=== PATIENT | male | born 1960 | race Caucasian/White ===

== ENCOUNTER 2020-01-14 10:57 | Outpatient (CLI) | payer OTHER, SELFPAY ==
--- NOTE | 2020-01-14 11:03 | XR_ITS ---
WS: [id number] Chest with left rib detail, 01/14/2020 Clinical Data: FALL Comparison: PA and lateral chest, 12/26/2017. Findings: The lungs show no nodules, masses, or effusions. The heart is normal. No pneumonia or pneumothorax is seen. There is volume loss in the left lung with elevation of the left diaphragm unchanged. The ribs are intact. No rib fractures seen. No subcutaneous emphysema is present. XR/XR ribs LT mn 3V w CXR1V [id number] Impression: 1. Chronic volume loss changes of the left lung. 2. Negative for left rib fracture.
== END 2020-01-14 10:58 | disposition home or self-care (01) ==
LOC: RAD 11:01
PROVIDERS: PCP Family Medicine; Visit Provider Nurse Practitioner Family
DX: R07.81 Pleurodynia (principal); W19.XXXA Unspecified fall, initial encounter
CPT/HCPCS: 71101

== ENCOUNTER 2020-02-21 05:21 | Observation (INO) | payer OTHER, SELFPAY ==
[2020-02-21] VITALS (20 sets, daily range): BP systolic 116–152; BP diastolic 80–116; PULSE 82–120; RESP 16–28; TEMP 36.6–37.2; O2SAT 95–97; BMI 23.1
--- NOTE | 2020-02-21 05:25 | ECG_ITS ---
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 Measurements Intervals [place] Rate: 83 P: PA: -1 QRS: -65 QRSD: 110 T: 22 QT: 363 QTc: 429 Interpretive Statements ATRIAL FIBRILLATION INCOMPLETE RIGHT BUNDLE BRANCH BLOCK [90+ ms QRS DURATION, TERMINAL R IN V1/V2, 40+ ms S IN I/aVL/V4/V5/V6] LEFT ANTERIOR FASCICULAR BLOCK [QRS AXIS <= -45, QR IN I, RS IN II] MINIMAL VOLTAGE CRITERIA FOR LVH, CONSIDER NORMAL VARIANT [MEETS CRITERIA IN ONE OF: R(aVL), S(V1), R(V5), R(V5/V6)+S(V1)] Compared to ECG 10/13/2014 00:52:05 Incomplete right bundle-branch block now present Sinus bradycardia no longer present Electronically Signed On 02-21-2020 21:13:30 CDT by Roby Delgado M.D. [email or web address]/store/[id number]
--- NOTE | 2020-02-21 05:25 | XRR_ITS ---
PROCEDURE INFORMATION: Exam: XR Chest, 1 View Exam date and time: 02/21/2020 5:47 AM Age: 60 years old Clinical indication: Cough and shortness of breath; Additional info: Cp/chest heavy, SOB, cough x a few days TECHNIQUE: Imaging protocol: XR of the chest Views: 1 view. COMPARISON: CR XR ribs LT mn 3V w CXR1V [id number] 01/14/2020 11:22 AM FINDINGS: Lungs: Pleural thickening left hemithorax laterally extending inferiorly. Mild adjacent elevation of the left hemidiaphragm. Linear parenchymal density about the above likely parenchymal band/scarring. Correlate. Subtle airspace disease right lung base. Pleural space: Unremarkable. No pleural effusion. No pneumothorax. Heart/Mediastinum: Unremarkable. No cardiomegaly. Bones/joints: Unremarkable. XR/XR chest 1V portable [id number] IMPRESSION: 1. Pleural thickening left hemithorax laterally extending inferiorly. Mild adjacent elevation of the left hemidiaphragm. Linear parenchymal density about the above likely parenchymal band/scarring. Correlate. 2. Subtle airspace disease right lung base.
--- NOTE | 2020-02-21 05:51 | PC.NURSE ---
patient placed under COVID precautions per Dr request.
--- NOTE | 2020-02-21 05:54 | ED_ITS ---
HPI - SOB/Dyspnea General: Chief Complaint: Shortness of Breath/Dyspnea Stated Complaint: sob; heavy feeling in chest Time Seen by Provider: 02/21/20 05:50 History of Present Illness: HPI Narrative: Patient complains of shortness of breath for the past several days. He has a nonproductive cough. He denies any fever. Patient has no history of COPD or emphysema. He has never smoked. Patient states that he gets pneumonia frequently. MD elicited complaint: shortness of breath and cough Pertinent past history: pneumonia Onset (ago): day(s) Timing: progressively worsening Severity: severe Exacerbating factors: exertion Relieving factors: nothing Known history of: recurrent pneumonia Associated symptoms: Reports chest congestion, cough and myalgias Treatment prior to arrival: none Review of Systems General: Reports: 10 or more systems reviewed and unremarkable except in HPI and below, ROS unobtainable due to endotracheal tube, ROS unobtainable due to medical condition and ROS unobtainable due to mental status Resp: Reports: dyspnea, non-productive cough and chest congestion PFS ED PFSH: Social History Smoking and tobacco status: never smoked Physical Exam Const: COMMON NORMALS: well nourished GENERAL APPEARANCE: cooperative, well kempt, well developed and ill appearing HENMT: COMMON NORMALS: normocephalic and atraumatic HEAD & SCALP: normal to inspection, normocephalic and atraumatic Eye: GENERAL EYE: appearance normal, both eyes and all related structures Neck/C-Spine: COMMON NORMALS: full ROM, no lymphadenopathy and no meningeal signs GENERAL: Yes normal visual inspection CERVICAL SPINE: Yes cervical ROM normal and Yes normal cervical lordosis Chest: COMMONS NORMALS: normal inspection of the chest and normal palpation of entire chest wall Resp: COMMON NORMALS: normal respiratory effort and percussion normal EFFOR T & INSPECTION: Yes able to speak in complete sentences AUSCULTATION: rhonchi PERCUSSION: percussion normal and dullness Cardio: COMMON NORMALS: regular rate, regular rhythm, S1 normal heart sound present and S2 normal heart sound present JUGULAR VENOUS DISTENTION: no JVD PALPATION: normal PMI RATE: regular rate RHYTHM: regular rhythm HEART SOUNDS: S1 normal heart sound present and S2 normal heart sound present GI: COMMON NORMALS: Soft to palpation and No hepatosplenomegaly present INSPECTION: Yes normal to inspection PALPATION: Yes Soft to palpation and Yes No hepatosplenomegaly present PERCUSSION: normal to percussion : COMMON NORMALS: Yes no CVA tenderness BLADDER/KIDNEY EXAM: Yes no CVA tenderness Back/Pelvis: COMMON NORMALS: no CVA tenderness, thoracic and lumbar spine normal to inspection and thoraco-lumbar ROM normal Extremity: COMMON NORMALS: normal to inspection, full ROM and capillary refill normal Neuro: MENINGEAL SIGNS: Yes no meningeal signs Psych: APPEARANCE: Yes well kempt Skin: COMMON NORMALS: no rashes or lesions noted, no wounds and turgor normal GENERAL SKIN EXAM: no rashes or lesions noted, elasticity normal and turgor normal LESIONS: no lesions RASHES: no rashes TRAUMA: no lacerations or abrasions HAIR: normal NAILS: normal Course Vital Signs: Vital signs: Vital Signs Temperature 97.8 F 02/21/20 05:23 Pulse Rate 82 02/21/20 06:30 Respiratory Rate 19 H 02/21/20 06:30 Blood Pressure 136/86 02/21/20 06:30 Pulse Oximetry 96 02/21/20 06:30 MDM - SOB/Dyspnea Lab Data: Labs: Lab Results 02/21/20 02/21/20 02/21/20 Range/Units 05:40 05:40 05:40 WBC 8.7 (4.0-10.0) 10^3/ uL RBC 4.94 (4.1-5.3) 10^6/u L Hgb 14.5 (11.7-16.6) g/dL Hct 44.3 (42.0-52.0) % MCV 89.7 (80-94) fL MCH 29.4 (28.0-34.0) pg MCHC 32.7 (30.0-36.0) g/dL RDW 12.4 (12.1-15.1) % Plt Count 213 (130-400) 10^3/c mm MPV 11.2 H (7.4-10.4) fL Neut % (Auto) 59.3 % Lymph % (Auto) 28.7 % [place] % (Auto) 10.0 % Eos % (Auto) 1.6 % Baso % (Auto) 0.2 % Neut # (Auto) 5.2 (1.8-7.7) 10^3/u L Lymph # (Auto) 2.5 (0.8-4.8) 10^3/u L [place] # (Auto) 0.9 (0.2-0.9) 10^3/u L Eos # (Auto) 0.1 (0.0-0.8) 10^3/u L Baso # (Auto) 0.0 (0.0-0.1) 10^3/u L Nucleated RBC % (a uto) 0 % Nucleated RBCs # 0.0 /100WBC Sodium 142 (136-145) mmol/L Potassium 4.0 (3.5-5.1) mmol/L Chloride 107 (98-107) mmol/L Carbon Dioxide 22 (22-29) mmol/L Anion Gap 17.0 (5-19) BUN 20 (8-23) mg/dL Creatinine 1.0 (0.7-1.2) mg/dL GFR Calculation 76.2 L (90-130) mL/min Glucose 180 H (65-115) mg/dL Calculated Osmolal ity 295 (285-295) mOsm/k g Calcium 9.3 (8.5-10.5) mg/dL Total Bilirubin 0.2 (0.15-1.2) mg/dL AST 20 (0-40) U/L ALT 21 (0-41) U/L Alkaline Phosphata se 82 (40-130) IU/L Troponin T Baselin e 7 (0-15) ng/L NT-Pro-B Natriuret Pep 2414 H (0-125) pg/mL Total Protein 6.0 L (6.6-8.7) g/dL Albumin 4.2 (3.5-5.2) g/dL Globulin 1.8 (1.3-4.6) g/dL Discharge Plan Discharge Patient Disposition: Admitted As Inpatient Clinical Impression: Community acquired pneumonia Qualifiers: Laterality: unspecified laterality Qualified Code(s): J18.9 - Pneumonia, uns pecified organism Condition: Fair Referrals: Taran Cruz Jr, MD [Primary Care Provider] - Coding Level of Care Code ED Lead Pressman for [facility] Fwd Exam Comprehensive
[2020-02-21 06:05] LABS: Basophils % 0.2 %; Eosinophils # 0.1 10^3/uL (0.0-0.8); Eosinophils % 1.6 %; Hematocrit 44.3 % (42.0-52.0); Hemoglobin 14.5 g/dL (11.7-16.6); Lymphocytes # 2.5 10^3/uL (0.8-4.8); Lymphocytes % 28.7 %; Mean Corpuscular HGB Conc 32.7 g/dL (30.0-36.0); Mean Corpuscular Hemoglobin 29.4 pg (28.0-34.0); Mean Corpuscular Volume 89.7 fL (80-94); Mean Platelet Volume 11.2 fL (7.4-10.4); Monocytes # 0.9 10^3/uL (0.2-0.9); Neutrophils # 5.2 10^3/uL (1.8-7.7); Neutrophils % 59.3 %; Nucleated Red Blood Cells % 0 %; Platelet Count 213 10^3/cmm (130-400); Red Blood Count 4.94 10^6/uL (4.1-5.3); Red Cell Distribution Width 12.4 % (12.1-15.1); White Blood Count 8.7 10^3/uL (4.0-10.0)
--- NOTE | 2020-02-21 06:18 | PC.NURSE ---
covid swab done at 0615. labeled and brought to lab. patient tolerated well.
[2020-02-21 06:20] LABS: Troponin(5th) Baseline 7 ng/L (0-15)
[2020-02-21 06:29] LABS: Alanine Aminotransferase 21 U/L (0-41); Albumin Level 4.2 g/dL (3.5-5.2); Alkaline Phosphatase 82 IU/L (40-130); Aspartate Amino Transferase 20 U/L (0-40); Blood Urea Nitrogen 20 mg/dL (8-23); Calcium 9.3 mg/dL (8.5-10.5); Carbon Dioxide 22 mmol/L (22-29); Chloride 107 mmol/L (98-107); Globulin 1.8 g/dL (1.3-4.6); Glomerular Filtration Rate 76.2 mL/min (90-130); Glucose 180 mg/dL (65-115); NT Pro B Type Natriuretic Pept 2414 pg/mL (0-125); Osmolality Calculated 295 mOsm/kg (285-295); Sodium 142 mmol/L (136-145); Total Bilirubin 0.2 mg/dL (0.15-1.2)
--- NOTE | 2020-02-21 07:25 | ECG_ITS ---
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 Measurements Intervals [place] Rate: 65 P: [place]: -1 QRS: 253 QRSD: 161 T: 14 QT: 468 QTc: 489 Interpretive Statements ATRIAL FIBRILLATION WITH ABERRANT CONDUCTION OR VENTRICULAR PREMATURE COMPLEXES INDETERMINATE AXIS RIGHT BUNDLE BRANCH BLOCK [120+ ms QRS DURATION, UPRIGHT V1, 40+ ms S IN I/aVL/V4/V5/V6] Compared to ECG 02/21/2020 11:31:55 Ventricular premature complex(es) now present Aberrant conduction of supraventricular beat(s) now present Indeterminate axis now present Right bundle-branch block now present Incomplete right bundle-branch block no longer present Left anterior fascicular block no longer present Electronically Signed On 02-22-2020 21:53:06 CDT by Roby Delgado M.D. [id number]
[2020-02-21 07:33] LABS: Ferritin 141 ng/mL (30-400); Lactate Dehydrogenase 195 U/L (135-225)
[2020-02-21] MEDS: piperacillin-tazobactam 3.375 GM in sodium chloride 0.9% (plus) 50 ML IV (08:12)
[2020-02-21] MEDS: sodium chloride 0.9% 1,000 ML 100 ML IV (08:14)
[2020-02-21 08:22] LABS: Troponin 5 2HR 7.35 ng/L (0-15); Troponin 5 2HR Delta 0.35 ABS# (0-10)
--- NOTE | 2020-02-21 08:39 | P.HP_ITS ---
Providers/Chief Complaint Admitting Physician: Chika Hartley DO Primary Care Provider: Taran Cruz Jr, MD Chief Complaint: sob; heavy feeling in chest History of Present Illness Mu Willis is a 60 year old male with a past medical history of hypertension, BPH, reported history of chronic lung disease that presented to the emergency department for increasing shortness of breath. He stated that he has been progressively short of breath over the past several months. Stated that this is worsened over the past couple of days. He denies any fevers at home, denies any productive cough. Reports that his only cough is been with deep inspiration, no regular cough. He reports that he has had increasing dyspnea on exertion, occasional chest pain with heaviness in the chest. Reports orthopnea that is been progressive over the past couple of weeks. Patient was seen and evaluated in the emergency department noted to have concern for chest pain and shortness of breath. Patient was initially treated for pneumonia and given Zosyn and also tested for CO VID-19. 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 Patient stated that he was tested 2 weeks ago and was negative at that time. Review of Systems Const: Denies: fever(s) or chills Eyes: Denies: change in vision ENMT: Denies: nasal congestion Card: Reports: chest pain; Denies: palpitations or edema Resp: Reports: dyspnea; Denies: productive cough or hemoptysis GI: Denies: abdominal pain, nausea, vomiting, diarrhea, constipation, hematochezia or melena : Denies: dysuria or hematuria Musc: Denies: extremity pain or muscle cramps Skin/Breast: Denies: rash or new lesions Neuro: Denies: headache(s) or dizziness Psych: Denies: anxiety or depression Endo: Denies: polyuria or hot flashes Sin/Lymph: Denies: easy bruising or easy bleeding Medications/Allergies Home Medications Medication Instructions Recorded Confirmed Last Taken Type apixaban [Eliquis] 5 mg PO BID 02/21/20 02/21/20 02/21/20 History azithromycin [Zithromax Z-Mic] See Rx Instructions .ROUTE 02/21/20 Unknown Rx .COMPLEX #6 tab hydrochlorothiazide 25 mg PO DAILY 02/21/20 02/21/2020 History lisinopril 20 mg PO DAILY 02/21/20 02/21/20 02/21/20 History metoprolol tartrate 50 mg PO BID 02/21/20 02/21/20 02/21/20 History prednisone See Rx Instructions .ROUTE 02/21/20 Unknown Rx .COMPLEX #21 each tamsulosin [Flomax] 0.4 mg PO DAILY 02/21/20 02/21/20 02/21/20 History Allergies Allergy/AdvReac Type Severity Reaction Status Date / Time verapamil Allergy ALGY-Rash Verified 02/21/20 05:31 PFSH Acute PFSH: Medical History (Updated 02/21/20 @ 09:03 by Chika Hartley DO) Atrial fibrillation BPH (benign prostatic hyperplasia) Chronic anticoagulation Chronic lung disease Patient reports failed pulmonary function testing in the past for occupational reasons, no formal PFTs documented Hypertension Surgical History History of cholecystectomy History of tonsillectomy and adenoidectomy Family History (Updated 02/21/20 @ 09:00 by Chika Hartley DO) Father Congestive heart failure Mother Cancer Social History (Updated 02/21/20 @ 09:01 by Chika Hartley DO) Smoking and tobacco status: never smoked Alcohol intake: never Substance/Drug Use: never Current occupation: works at [employer] currently Previous occupational history: 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 Vitals/I&O/Wt Last Vital Signs Temp 98.4 F 02/21/20 08:02 Pulse 91 02/21/20 08:02 Resp 26 H 02/21/20 08:02 BP 152/85 02/21/20 08:02 Pulse Ox 97 02/21/20 08:02 Weight last 48 hrs Weight 83.915 kg Physical Exam Const: COMMON NORMALS: patient oriented x3 and alert GENERAL APPEARANCE: cooperative ORIENTATION/CONSCIOUSNESS: Yes awake, Yes oriented to person, Yes oriented to place and Yes oriented to time HENMT: COMMON NORMALS: normocephalic and atraumatic HEAD & SCALP: normocephalic and atraumatic Eye: COMMON NORMALS: Equal, round and reactive pupils present PUPIL: Yes Equal, round and reactive pupils present Neck/C-Spine: COMMON NORMALS: supple GENERAL: Yes normal visual inspection Resp: AUSCULTATION: no rhonchi and no wheezes OTHER: Mild accessory muscle use, tachypneic, diminished breath sounds bilaterally with faint crackles bilaterally Cardio: COMMON NORMALS: regular rhythm and No murmurs present (Cardio) OTHER: Irregularly irregular, no appreciable murmur GI: COMMON NORMALS: Soft to palpation and non-tender INSPECTION: No abdominal distension AUSCULTATION: Yes normoactive bowel sounds PALPATION: Yes Soft to palpation : COMMON NORMALS: Yes no CVA tenderness BLADDER/KIDNEY EXAM: Yes no CVA tenderness Back/Pelvis: COMMON NORMALS: no CVA tenderness Extremity: COMMON NORMALS: no clubbing, cyanosis or edema and no calf t enderness Neuro: COMMON NORMALS: patient oriented x3, CN's II-XII intact bilaterally, moves all extremities and no focal motor deficits SENSORIUM/ORIENTATION: Yes alert, Yes oriented to person, Yes oriented to place and Yes oriented to time SPEECH: speech normal Psych: COMMON NORMALS: mental status grossly normal and cooperative Skin: COMMON NORMALS: no rashes or lesions noted GENERAL SKIN EXAM: no rashes or lesions noted Data : 02/21/20 05:40 02/21/20 05:40 CXR: I personally reviewed and interpreted this imaging study as follows: Radiologist's impression: IMPRESSION: 1. Pleural thickening left hemithorax laterally extending inferiorly. Mild adjacent elevation of the left hemidiaphragm. Linear parenchymal density about the above likely parenchymal band/scarring. Correlate. 2. Subtle airspace disease right lung base. EKG 1: I personally reviewed and interpreted this EKG as follows: My Interpretation: Atrial fibrillation with ventricular rate of 83 bpm A&P Assessment and plan (1) Dyspnea: Believed to be multifactorial Concern for underlying congestive heart failure, echocardiogram ordered and pending Patient remains in atrial fibrillation, this is chronic, will continue home metoprolol We will follow-up with echocardiogram along with telemetry monitoring as well as serial EKG and troponin Patient reports increasing dyspnea on exertion for the past several months with increasing orthopnea. Strict intake and output as well as daily weights Patient reports that he has a plastic surgery technician that he follows up with in Dr. Luis Thomas at [facility] Status: Acute (2) Chest pain: Telemetry Serial EKG and troponin Concern for CO VID-19 exposure, testing is pending Concern for underlying congestive heart failure with increasing orthopnea and fluid overload on chest x-ray, echocardiogram ordered and pending we will give Lasix x1 Record request ordered from patient's plastic surgery technician in Dr. Luis Thomas Status: Acute (3) Chronic lung disease: Secondary to find particle exposure in the past. Patient reports failing pulmonary function testing due to occupational reasons but is never had any formal pulmonary function testing, recommend outpatient PFTs at time of discharge Status: Acute (4) BPH (benign prostatic hyperplasia): Continue home Flomax Status: Acute (5) Hypertension: Continue home medications, metoprolol and lisinopril Status: Acute (6) Community acquired pneumonia: Concern for developing pneumonia with increasing dyspnea, Levaquin 750 mg daily Status: Acute Qualifiers: Laterality: unspecified laterality Qualified Code(s): J18.9 - Pneumonia, unspecified organism (7) Atrial fibrillation: Patient remains in atrial fibrillation, rate controlled Continue on home metoprolol Continue on home Eliquis 5 mg twice daily Status: Acute (8) Chronic anticoagulation: Request 5 mg twice daily due to underlying atrial fibrillation Status: Acute Additional A&P Information Patient with increasing dyspnea with exposure to CO VID-19 at work, was tested for CO VID-19 2 weeks ago and returned negative at that time. Patient has been retested and testing remains pending. We will continue with droplet and isolation precautions at this time. 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
[2020-02-21] MEDS: ondansetron 2 mg/ML SDV 2 mL 4 MG IVP (08:47)
--- NOTE | 2020-02-21 10:16 | PC.NURSE ---
Password is [id number]
[2020-02-21 10:18] LABS: Procalcitonin 0.05 ng/mL (0-0.5); Thyroid Stimulating Hormone 0.03 uIU/mL (0.27-4.20)
[2020-02-21] MEDS: enoxaparin 100 mg/mL Syringe 80 MG SUBCUT ×2 (11:15→21:52)
[2020-02-21] MEDS: FUROsemide 10 mg/mL SDV 4mL 40 MG IVP (11:16)
[2020-02-21] MEDS: levofloxacin-dextrose 5 % 750 MG/150 ML PREMIX 100 MG IV (11:16)
--- NOTE | 2020-02-21 11:25 | ECG_ITS ---
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 Measurements Intervals [place] Rate: 99 P: [place]: -1 QRS: -53 QRSD: 109 T: 21 QT: 351 QTc: 452 Interpretive Statements ATRIAL FIBRILLATION PATTERN CONSISTENT WITH PULMONARY DISEASE INCOMPLETE RIGHT BUNDLE BRANCH BLOCK [90+ ms QRS DURATION, TERMINAL R IN V1/V2, 40+ ms S IN I/aVL/V4/V5/V6] LEFT ANTERIOR FASCICULAR BLOCK [QRS AXIS <= -45, QR IN I, RS IN II] Compared to ECG 02/21/2020 05:37:40 No significant changes Electronically Signed On 02-21-2020 21:14:37 CDT by Roby Delgado M.D. [id number]
[2020-02-21] MEDS: albuterol 8 gm MDI 2 PUFF INHALATION (11:55)
[2020-02-21] MEDS: hydroCHLOROthiazide 25 mg Tablet PO (13:34)
[2020-02-21] MEDS: metoprolol tartrate 50 mg Tablet PO ×2 (13:34→17:13)
[2020-02-21] MEDS: lisinopril 20 mg Tablet PO (13:34)
[2020-02-21 15:36] LABS: Estmated Average Glucose 126
[2020-02-21 18:12] LABS: T3 Free 4.8 PG/ML (2.0-4.4)
--- NOTE | 2020-02-21 19:47 | PC.NURSE ---
pt refused scd at this time. Will offer again later
--- NOTE | 2020-02-21 22:04 | PC.NURSE ---
pt resting in bed no complaints voiced. Cont to refuse scd at this time.
[2020-02-21 23:00] LABS: Troponin 5 6HR 6.52 ng/L (0-15)
[2020-02-22] VITALS (20 sets, daily range): BP systolic 103–138; BP diastolic 68–95; PULSE 86–164; RESP 16–26; TEMP 36.6–36.9; O2SAT 92–97
[2020-02-22 07:22] LABS: Anion Gap 15.7 (5-19); Blood Urea Nitrogen 21 mg/dL (8-23); Calcium 9.6 mg/dL (8.5-10.5); Carbon Dioxide 27 mmol/L (22-29); Chloride 99 mmol/L (98-107); Glomerular Filtration Rate 68.3 mL/min (90-130); Glucose 112 mg/dL (65-115); Osmolality Calculated 283 mOsm/kg (285-295); Potassium 3.7 mmol/L (3.5-5.1); Sodium 138 mmol/L (136-145)
--- NOTE | 2020-02-22 08:08 | PC.NURSE ---
in with am brk at this time resting eyes closed remains resting
[2020-02-22 08:47] LABS: Coronavirus Lab Test PTC NOT DETECTED
[2020-02-22] MEDS: metoprolol tartrate 50 mg Tablet PO (09:25)
[2020-02-22] MEDS: lisinopril 20 mg Tablet PO (09:25)
[2020-02-22] MEDS: hydroCHLOROthiazide 25 mg Tablet PO (09:25)
[2020-02-22] MEDS: enoxaparin 100 mg/mL Syringe 80 MG SUBCUT (09:25)
[2020-02-22] MEDS: tamsulosin 0.4 mg Capsule PO (09:25)
--- NOTE | 2020-02-22 09:31 | US_ITS ---
WS: [id number] THYROID ULTRASOUND HISTORY: hyperthyroidism COMPARISON: None available. Right lobe: 5.0 cm x 1.3 cm x 2.1 cm. Volume: 7.0 cm3. Normal size and echotexture. No significant are dominant nodules are present. Left lobe: 4.3 cm x 1.3 cm x 1.1 cm. Volume: 3.3 cm3. Normal size gland. There are a few scattered hypoechoic areas in the gland. Complex cystic nodules or colloid cyst with the largest in the mid gland measuring 4 x 2 x 4 mm. There is an additional hypoec hoic area in the lateral gland measuring 7 mm. Isthmus: 0.4 cm. US/US thyroid [id number] IMPRESSION: Subcentimeter nodules in the LEFT thyroid. Consider yearly thyroid evaluation b y ultrasound. No suspicious nodules at this time.
--- NOTE | 2020-02-22 09:38 | USCV_ITS ---
Mu Willis Age: 60 Gender: M : 1960 Exam Date: 02/22/2020 10:54 Ordering Phys: Chika Hartley DO Technologist: Kristina Barros Exam Location: [facility] [place] Indication: AFIB BP: 123 / 83 HR: 102 Rhythm: Atrial fibrillation Technical Quality: Poor MEASUREMENTS (Male / Female) Normal Values 2D ECHO LV Diastolic Diameter PLAX 4.4 cm 4.2 - 5.9 / 3.9 - 5.3 cm LV Systolic Diameter PLAX 3.9 cm LV Chamber Size 3.0 cm IVS Diastolic Thickness 1.4 cm 0.6 - 1.0 / 0.6 - 0.9 cm IVS Systolic Thickness 2.2 cm LVPW Diastolic Thickness 1.2 cm 0.6 - 1.0 / 0.6 - 0.9 cm LVPW Systolic Thickness 1.8 cm RV Chamber Size 3.3 cm LVOT Diameter 2.0 cm LV Ejection Fraction 2D Teich 28.2 % LV Ejection Fraction MOD 2C 62.4 % LV Ejection Fraction 2C AL 61.8 % LA Diameter 4.3 cm LA Width 3.3 cm LA Height 3.6 cm RA Width 4.8 cm RA Height 4.2 cm Aorta at Sinotubular Diameter 3.4 cm M-MODE LV Diastolic Diameter MM 5.9 cm 4.2 - 5.9 / 3.9 - 5.3 cm LV Systolic Diameter MM 4.4 cm LV Ejection Fraction MM Teich 47.9 % IVS Diastolic Thickness MM 1.2 cm 0.6 - 1.0 / 0.6 - 0.9 cm IVS Systolic Thickness MM 1.5 cm LVPW Diastolic Thickness MM 1.1 cm 0.6 - 1.0 / 0.6 - 0.9 cm LVPW Systolic Thickness MM 2.1 cm RV Diastolic Diameter MM 1.9 cm Aortic Annulus Diameter 3.2 cm LA Ao Ratio MM 1.3 MV E Point Septal Separation 0.8 cm DOPPLER AV Peak Velocity 96.0 cm/s LVOT Peak Velocity 70.0 cm/s AV Area Cont Eq vti 2.6 cm squared AV Area Cont Eq pk 2.4 cm squared MV Area PHT 3.9 cm squared MV E' Velocity 12.0 cm/s Mitral E to MV E' Ratio 8.6 Mitral E to LV E' Lateral Ratio 7.7 Mitral E to LV E' Septal Ratio 9.7 TR Peak Velocity 108.4 cm/s TR Peak Gradient 4.7 mmHg TR Mean Velocity 75.1 cm/s TR Mean Gradient 2.5 mmHg TR Velocity Time Integral 20.0 cm TV Peak E Velocity 61.0 cm/s Right Atrial Pressure 3.0 mmHg Pulmonary Artery Systolic Pressu 7.7 mmHg PV Peak Velocity 58.0 cm/s RV Acceleration Time 0.2 s RV Ejection Time 0.3 s RV AcT/ET 0.5 FINDINGS Left Ventricle The ventricle is poorly seen. Probably normal size and function. Atrial fibrillation makes wall motion disturbances difficult to discern. Unable to determine diastolic function. Estimated ejection fraction 55 to 60% Right Ventricle Normal right ventricular size and systolic function. Normal right ventricular systolic pressure. Right Atrium Mildly increased right atrial size. Left Atrium Mildly increased left atrial size. Mitral Valve Mitral valve not well visualized. Aortic Valve Aortic valve not well visualized. Tricuspid Valve Tricuspid valve not well visualized. Pulmonic Valve Pulmonic valve not well visualized. Pericardium Normal pericardium without effusion. Aorta Normal ascending aorta dimension. CONCLUSIONS The ventricle is poorly seen. Probably normal size and function. Atrial fibrillation makes wall motion disturbances difficult to discern. Unable to determine diastolic function. Estimated ejection fraction 55 to 60%. Mildly increased right atrial size. Mildly increased left atrial size. No change from the previous study dated 10/08/2014 Dr. Lefty Fuentes MD (Electronically Signed) Final Date: 22 February 2020 14:42 S
[2020-02-22] MEDS: metoprolol tartrate 25 mg Tablet PO (09:48)
[2020-02-22] MEDS: levofloxacin-dextrose 5 % 750 MG/150 ML PREMIX 100 MG IV (10:45)
--- NOTE | 2020-02-22 11:00 | PC.NURSE ---
echo in progress at this time heart rate 98
[2020-02-22] MEDS: methIMAzole 5 MG Tablet PO (11:38)
--- NOTE | 2020-02-22 14:00 | P.DS_ITS ---
Discharge Providers Date of Admission: 02/21/20 07:15 Date of Discharge: February 22, 2020 Attending Provider at Admission: Chika Hartley DO Attending Provider at Discharge: Chika Hartley DO Primary Care Provider: Taran Cruz Jr, MD Diagnoses at Discharge Discharge Diagnosis (1) Dyspnea: Status: Acute Problem details: Resolved (2) Chest pain: Status: Acute Problem details: Resolved (3) Chronic lung disease: Status: Acute Problem details: Patient reports failed pulmonary function testing in the past for occupational reasons, no formal PFTs documented (4) BPH (benign prostatic hyperplasia): Status: Acute (5) Hypertension: Status: Acute (6) Community acquired pneumonia: Status: Acute Qualifiers: Laterality: unspecified laterality Qualified Code(s): J18.9 - Pneumonia, unspecified organism (7) Atrial fibrillation: Status: Acute (8) Chronic anticoagulation: Status: Acute Reason for Visit Reason for Visit: sob; heavy feeling in chest Hospital Course Hospital Course: Patient was seen and evaluated in the emergency department and admitted for further evaluation due to concern for shortness of breath and tachypnea. Patient works at [employer] and did have exposure to [place] VID-19, however had been tested 2 weeks ago and was negative at that time. He was placed on isolation and droplet precautions and tested again for COVID-19. Patient returned negative on COVID-19 testing. He was noted to have question of developing pneumonia and was started on antibiotics. He was noted to have chronic atrial fibrillation and heart rate did have some fluctuations as well as some concern for fluid overload, he was given Lasix IV x1 and had improvement in respiratory status. Patient's heart rate remained in atrial fibrillation and he was given metoprolol 75 mg twice daily, this was increased from his 50 mg twice daily dose. TSH was checked due to shortness of breath and concern for atrial fibrillation and was noted to be concerning for hyperthyroidism. Patient was continued on beta-jeff and started on methimazole 5 mg daily. On date of patient reported that he was feeling much better, no chest pain and reported that shortness of breath had improved. Discussed with patient plan for discharge to home with close follow-up with his primary care provider and recommendation to have referral to endocrinology. Patient verbalized understanding and agreed with plan. On date of discharge she was awake and sitting at the side of bed in no distress and asking when he could return to home. Physical Exam Const: COMMON NORMALS: patient oriented x3 and alert GENERAL APPEARANCE: cooperative ORIENTATION/CONSCIOUSNESS: Yes awake, Yes oriented to person, Yes oriented to place and Yes oriented to time HENMT: COMMON NORMALS: normocephalic and atraumatic HEAD & SCALP: normocephalic and atraumatic Eye: COMMON NORMALS: Equal, round and reactive pupils present PUPIL: Yes Equal, round and reactive pupils present Neck/C-Spine: COMMON NORMALS: supple GENERAL: Yes normal visual inspection Resp: AUSCULTATION: no rhonchi and no wheezes OTHER: Respirations even and unlabored, lungs clear to auscultation without wheezing or rhonchi, crackles resolved Cardio: COMMON NORMALS: regular rhythm and No murmurs present (Cardio) RHYTHM: regular rhythm OTHER: Irregularly irregular, no appreciable murmur GI: COMMON NORMALS: Soft to palpation and non-tender INSPECTION: No abdominal distension AUSCULTATION: Yes normoactive bowel sounds PALPATION: Yes Soft to palpation : COMMON NORMALS: Yes no CVA tenderness BLADDER/KIDNEY EXAM: Yes no CVA tenderness Back/Pelvis: COMMON NORMALS: no CVA tenderness Extremity: COMMON NORMALS: no clubbing, cyanosis or edema and no calf tenderness Neuro: COMMON NORMALS: patient oriented x3, CN's II-XII intact bilaterally, moves all extremities and no focal motor deficits SENSORIUM/ORIENTATION: Yes alert, Yes oriented to person, Yes oriented to place and Yes oriented to time SPEECH: speech normal Psych: COMMON NORMALS: mental status grossly normal and cooperative Skin: COMMON NORMALS: no rashes or lesions noted GENERAL SKIN EXAM: no rashes or lesions noted Discharge Data Data Completed and Pending: Completed Studies During Hospitalization Category Date Time Status XR chest 1V tayo ble [id number] Stat Exams 02/21/20 05:25 [place] thyroid [id number] Routine Ultrasound 02/22/20 09:31 Completed Pending at discharge Category Date Time Status Basic Metabolic P mara AM LABS Lab 02/23/20 04:00 Ordered Basic Metabolic P mara AM LABS Lab 02/24/20 04:00 Ordered T3 Free Routine Lab 02/22/20 10:31 Ordered CV echo complete* [id number] Routine Ultrasound 02/22/20 09:38 Taken Labs from last 24 hours 02/22/20 02/21/20 02/21/20 06:58 13:59 06:15 Sodium 138 Potassium 3.7 Chloride 99 Carbon Dioxide 27 Anion Gap 15.7 BUN 21 Creatinine 1.1 GFR Calculation 68.3 L Glucose 112 Estimat Average Gl ucose Hemoglobin A1c Calculated Osmolal ity 283 L Calcium 9.6 Troponin I 6 Hour 6.52 Troponin I Hi Sens Del TNP Free T3 Nasal/Oral COVID-1 9 PCR Not detected 02/21/20 02/21/20 05:40 05:40 Sodium Potassium Chloride Carbon Dioxide Anion Gap BUN Creatinine GFR Calculation Glucose Estimat Average Gl ucose 126 Hemoglobin A1c 6.0 Calculated Osmolal ity Calcium Troponin I 6 Hour Troponin I Hi Sens Del Free T3 4.8 H Nasal/Oral COVID-1 9 PCR Vitals: Last Vital Signs Temp 98.2 F 02/22/20 05:29 Pulse 100 02/22/20 12:00 Resp 22 H 02/22/20 12:00 BP 118/82 02/22/20 12:00 Pulse Ox 95 02/22/20 12:00 Discharge Plan Discharge Patient Disposition: Home, Self-Care Condition: Stable Prescriptions: New Zithromax Z-Mic 250 mg tablet See Rx Instructions .ROUTE .COMPLEX Qty: 6 RF: 0 prednisone 10 mg tablets,dose pack See Rx Instructions .ROUTE .COMPLEX Qty: 21 RF: 0 metoprolol tartrate 50 mg Tablet 75 mg PO BID 30 Days Qty: 90 RF: 0 methimazole 5 mg Tablet 5 mg PO DAILY 30 Days Qty: 30 RF: 0 Levaquin 750 mg tablet 750 mg PO DAILY 7 Days Qty: 7 RF: 0 Continued lisinopril 20 mg Tablet 20 mg PO DAILY RF: 0 Flomax 0.4 mg Capsule 0.4 mg PO DAILY RF: 0 hydrochlorothiazide 25 mg Tablet 25 mg PO DAILY RF: 0 Eliquis 5 mg Tablet 5 mg PO BID RF: 0 Discontinued metoprolol tartrate 50 mg Tablet 50 mg PO BID RF: 0 Referrals: Taran Cruz Jr, MD [Primary Care Provider] - 1-3 days Discharge Diet: Cardiac Discharge Activity: Increase activity as tolerated and Return to work/school after cleared by PCP/Specialist Activity Restrictions/Additional Instructions: Follow-up with your primary care provider early next week, Dr. Cruz. Will recommend recheck of thyroid function in 3 to 4 weeks. Recommend follow-up with endocrinology and referral for endocrinology due to hyperthyroidism. Recommend close monitoring of thyroid ultrasound Increased metoprolol to 75 mg twice daily Started on methimazole 5 mg daily Antibiotic Levaquin 750 mg daily Do not return to work until cleared by your primary care provider Follow-up with cardiology in 1 month due to atrial fibrillation Recommend outpatient pulmonary function testing Call your physician or present to the ED for any acute illness or concern Discharge Attestations Time Spent in Discharge Care*: greater than 30 min Specific Discharge Activities: Specific discharge activities: educating patient and documenting/other paperwork Quality Metrics Clinical Quality Measures During this hospital stay, did patient experience: None Coding Level of Care Code Acute District Operations Manager for Chg Fwd Diagnoses Dyspnea R06.00 Chest pain R07.9 Chronic lung disease J98.4 BPH (benign prostatic hyperplasia) N40.0 Hypertension I10 Community acquired pneumonia J18.9 Laterality: unspecified laterality Atrial fibrillation I48.91 Chronic anticoagulation Z79.01
--- NOTE | 2020-02-22 14:16 | PC.RESP ---
Pulmonary Rehab information sent to patient.
[2020-02-22 15:50] LABS: T3 Free 4.8 PG/ML (2.0-4.4)
--- NOTE | 2020-02-22 17:09 | PC.NURSE ---
discharge home at this time piid removed whole and intact
== END 2020-02-22 16:30 | disposition home or self-care (01) ==
LOC: ER 07:14 → ICU 08:14
PROVIDERS: Emergency Medicine; Family Medicine; Admitting Provider Family Medicine; PCP Family Medicine; Visit Provider Family Medicine
DX: R06.00 Dyspnea, unspecified (principal); R07.9 Chest pain, unspecified; N40.0 Benign prostatic hyperplasia without lower urinary tract symptoms; I10 Essential (primary) hypertension; I48.91 Unspecified atrial fibrillation; Z79.01 Long term (current) use of anticoagulants; J98.4 Other disorders of lung; J18.9 Pneumonia, unspecified organism; E03.9 Hypothyroidism, unspecified
CPT/HCPCS: 12345; 36415; 71045; 76536; 80048; 80053; 82728; 83036; 83615; 83880; 84145; 84443; 84481; 84484; 85025; 85378; 85610; 87635; 93005; 93306; 94640; 94664; 96365; 96366; 96372; 96375; 99283; 99285; G0378; J1650; J1940; J1956; J2405; J2543; J3535; J7030

== ENCOUNTER 2020-03-05 10:37 | Outpatient (CLI) | payer OTHER, SELFPAY ==
--- NOTE | 2020-03-05 14:07 | PFTS_ITS ---
Date of Study:03/05/20 Date of Dictation: MECHANICS: Forced vital capacity (FVC) is reduced. Forced expiratory volume in one second (FEV1) is reduced. FEV1/FVC is normal. FLOW VOLUME LOOP: Narrow. LUNG VOLUMES: Total lung capacity (TLC) is . Residual volume (RV) is used. DIFFUSING CAPACITY FOR CARBON MONOXIDE: Moderately reduced. INTERPRETATION: The pulmonary function tests are consistent with moderately severe restriction. There is no postbronchodilator response. Lung volumes are consistent with restriction. Gas exchange (DLCO) is moderately reduced. MTDD
== END 2020-03-05 10:38 | disposition home or self-care (01) ==
LOC: RT 10:39
PROVIDERS: PCP Family Medicine; Visit Provider Nurse Practitioner Family
DX: R06.02 Shortness of breath (principal); J98.4 Other disorders of lung; J18.9 Pneumonia, unspecified organism
CPT/HCPCS: 94060; 94726; 94729; J7611

== ENCOUNTER 2020-08-13 11:09 | Outpatient (CLI) | payer OTHER, SELFPAY ==
--- NOTE | 2020-08-13 11:26 | XR_ITS ---
WS: [id number] Chest 2 views, 08/13/2020 Clinical Data: SHORTNESS OF BREATH Comparison: Portable chest, 02/21/2020. Findings: No nodules, masses or effusions are seen. The heart is normal. The pulmonary vascularity is not increased. No pneumonia or pneumothorax is seen. There is volume loss of the left lung with elev ation left diaphragm and left apical thickening which may be secondary to a prior injury or surgery. XR/XR chest 2V* [id number] Impression: 1. Volume loss of the left lung with apical thickening and elevation of the lef t diaphragm unchanged. 2. Negative for acute cardiopulmonary disease.
== END 2020-08-13 11:10 | disposition home or self-care (01) ==
LOC: RAD 11:12
PROVIDERS: PCP Family Medicine; Visit Provider Nurse Practitioner Family
DX: R05 Cough (principal); R06.02 Shortness of breath
CPT/HCPCS: 71046

== ENCOUNTER 2020-09-24 15:18 | Outpatient (CLI) | payer OTHER, SELFPAY ==
--- NOTE | 2020-09-24 15:24 | CT_ITS ---
WS: [id number] CT CHEST TECHNIQUE: Noncontrast CT of the chest with coronal and sagittal reformatted images. CLINICAL INFORMATION: SHORTNESS OF BREATH ON EXERTION/COUGH COMPARISON: CT chest 5 25,018 DLP: 593.[address] scans at [facility] use at least one of these dose optimization techniques: automat ed exposure control; mA and/or kV adjustment per patient size (includes targeted exams where dose is matched to clinical indication); or iterative reconstruction. FINDINGS: Fibrotic appearing parenchymal opacity left upper lobe with associated subsegmental atelectasis and f ibrosis is unchanged in appearance since 2018. This measures approximately 1.6 x 1.9 cm. In addition this is unchanged in appearance since 2014. No mediastinal or hilar lymphadenopathy. No axillary lymphadenopathy. Incidental hepatic cysts. Daina cystectomy clips. Adrenal glands are normal. Small splenule. Tiny nodule in the right upper lobe at t he lung apex measuring 3 mm is stable. 3 mm nodule in the anterior right upper lobe is stable. CT/CT chest con [id number] IMPRESSION: 1. Stable fibrotic opacity left upper lobe with associated atelectasis. This i s unchanged since 2014 2. Stable 3 mm noncalcified nodules right upper lobe unchanged. 3. Incidental hepatic cysts. 4. Interval Cholecystectomy.
== END 2020-09-24 15:19 | disposition home or self-care (01) ==
LOC: RAD 15:22
PROVIDERS: PCP Family Medicine; Visit Provider Nurse Practitioner Family
DX: R06.02 Shortness of breath (principal); R05 Cough; K76.89 Other specified diseases of liver; R91.1 Solitary pulmonary nodule; J98.11 Atelectasis; Z90.49 Acquired absence of other specified parts of digestive tract
CPT/HCPCS: 71250

== ENCOUNTER 2020-10-06 11:23 | Outpatient (CLI) | payer OTHER, SELFPAY ==
[2020-10-07 14:43] LABS: Anti-Double Strand DNA AB 1 IU/mL; Jo-1 Antibody <1.0 NEG AI (<1.0 NEG); SM/RNP Antibodies <1.0 NEG AI (<1.0 NEG); SS-B/LA IGG <1.0 NEG AI (<1.0 NEG); Scleroderma Ab(Scl-70) Ab <1.0 NEG AI (<1.0 NEG); Ss-A/Ro Igg <1.0 NEG AI (<1.0 NEG)
== END 2020-10-06 11:24 | disposition home or self-care (01) ==
LOC: LAB 11:25
PROVIDERS: PCP Family Medicine; Visit Provider Internal Medicine Pulmonary Disease
DX: J84.9 Interstitial pulmonary disease, unspecified (principal)
CPT/HCPCS: 86225; 86235

== ENCOUNTER → 2020-10-16 10:25 | Outpatient (BNVA) | payer OTHER, SELFPAY | PROVIDERS: PCP Family Medicine; Visit Provider Internal Medicine Pulmonary Disease | DX: Z01.812 Encounter for preprocedural laboratory examination (principal) | CPT/HCPCS: 87635 ==

== ENCOUNTER 2020-10-21 07:07 | Outpatient (CLI) | payer OTHER, SELFPAY ==
--- NOTE | 2020-10-21 13:12 | PFTS_ITS ---
Date of Study:10/21/20 Date of Dictation: MECHANICS: Forced vital capacity (FVC) is reduced. Forced expiratory volume in one second (FEV1) is reduced. FEV1/FVC is normal. FLOW VOLUME LOOP: Narrow. LUNG VOLUMES: Total lung capacity (TLC) is reduced. Residual volume (RV) is reduced. DIFFUSING CAPACITY FOR CARBON MONOXIDE: Moderately reduced. INTERPRETATION: The postbronchodilator spirometry is consistent with moderately severe restriction. There is no significant postbronchodilator response. Lung volumes are consistent with moderately severe restriction. Gas exchange (DLCO) is moderately reduced. MTDD
== END 2020-10-21 07:08 | disposition home or self-care (01) ==
LOC: RT 07:09
PROVIDERS: PCP Family Medicine; Visit Provider Internal Medicine Pulmonary Disease
DX: R94.2 Abnormal results of pulmonary function studies (principal)
CPT/HCPCS: 94060; 94618; 94726; 94729; J7611

== ENCOUNTER 2020-11-02 21:15 | Emergency (ER) | payer OTHER, SELFPAY ==
[2020-11-02 21:20] VITALS: BP 164/130; PULSE 84; RESP 20; TEMP 36.4; O2SAT 95; BMI 23.1
--- NOTE | 2020-11-02 22:02 | XRR_ITS ---
PROCEDURE INFORMATION: Exam: XR Chest Exam date and time: 11/02/2020 10:11 PM Age: 60 years old Clinical indication: Shortness of breath; Patient HX: SOB, low back pain TECHNIQUE: Imaging protocol: XR of the chest Views: Frontal portable upright view of the chest. COMPARISON: CT chest [facility] [id number] 09/24/2020 3:27 PM FINDINGS: Tubes, catheters and devices: EKG leads are present overlying the chest. Lungs: Lateral left mid lung zone airspace opacity. Left-sided pleuroparenchymal scarring otherwise stable. Pleural spaces: No definite pleural effusion. No pneumothorax. Heart/Mediastinum: Mediastinum: Stable. Diaphragm: The left hemidiaphragm remains mildly elevated. Bones/joints: Stable. XR/XR chest 1V portable [id number] IMPRESSION: 1. Lateral left mid lung zone airspace opacity. Pneumonitis is difficult to exclude. Clinical correlation is recommended. 2. Left-sided pleuroparenchymal scarring otherwise stable.
--- NOTE | 2020-11-02 22:03 | ECG_ITS ---
[facility] Test Date: 2020-11-02 Pat Name: Mu Willis Department: Room: Gender: Male Human Resources Support Specialist: : 1960 Requested By: Carl Uribe Order Number: [id number] Aniket MD: VALDEMAR HALLMAN Measurements Intervals [place] Rate: 82 P: ME: QRS: -59 QRSD: 104 T: -27 QT: 384 QTc: 449 Interpretive Statements ATRIAL FIBRILLATION INCOMPLETE RIGHT BUNDLE BRANCH BLOCK [90+ ms QRS DURATION, TERMINAL R IN V1/V2, 40+ ms S IN I/aVL/V4/V5/V6] LEFT ANTERIOR FASCICULAR BLOCK [QRS AXIS <= -45, QR IN I, RS IN II] MINIMAL VOLTAGE CRITERIA FOR LVH, CONSIDER NORMAL VARIANT [MEETS CRITERIA IN ONE OF: R(aVL), S(V1), R(V5), R(V5/V6)+S(V1)] Compared to ECG 02/22/2020 16:03:28 Incomplete right bundle-branch block now present Left anterior fascicular block now present Ventricular premature complex(es) no longer present Aberrant conduction of supraventricular beat(s) no longer present Indeterminate axis no longer present Right bundle-branch block no longer present Electronically Signed On 11-03-2020 18:29:44 RIDDLER OPERATOR by VALDEMAR HALLMAN [id number]
--- NOTE | 2020-11-02 22:21 | W.ED.SOB ---
HPI - SOB/Dyspnea General: Chief Complaint: Shortness of Breath/Dyspnea Stated Complaint: SOB/pain in lower back Time Seen by Provider: 11/02/20 21:41 History of Present Illness: HPI Narrative: 60-year-old male with a history of atrial fibrillation, and restrictive lung disease presents with cough and shortness of breath worsening since Tuesday scant white sputum no fever. No increasing swelling. Some chest discomfort associated with his cough. MD elicited complaint: shortness of breath and cough Pertinent past history: pneumonia and other Onset (ago): day(s) (4) Timing: constant and progressively worsening Severity: similar to previous episodes Exacerbating factors: lying flat and exertion Relieving factors: nothing Known history of: recurrent pneumonia and other (has restrictive lung dz on pft) Associated symptoms: Reports chest congestion, chest pain and cough; Deny dizziness, fever(s), hemoptysis, nausea, rash, syncope or vomiting Treatment prior to arrival: bronchodilator Review of Systems Const: Denies: fever(s) Eyes: Denies: change in vision ENMT: Denies: odynophagia or sinus pain Card: Reports: chest pain; Denies: syncope Resp: Reports: chest congestion; Denies: hemoptysis GI: Denies: nausea or vomiting : Denies: difficulty urinating, dysuria or hematuria Musc: Denies: neck pain or joint warmth Skin/Breast: Denies: rash or erythema Neuro: Denies: headache(s), dizziness or vertigo Psych: Denies: anxiety PFSH ED PFSH: Medical History Atrial fibrillation BPH (benign prostatic hyperplasia) Chronic anticoagulation Chronic lung disease Patient reports failed pulmonary function testing in the past for occupational reasons, no formal PFTs documented Hypertension Surgical History History of cholecystectomy History of tonsillectomy and adenoidectomy Family History Father Congestive heart failure Mother Cancer Social History (Updated 10/06/20 @ 10:29 by Abdiaziz Carrillo LPN) Smoking and tobacco status: never smoked Second hand smoke exposure: Yes Smoking risk assessment/counseling performed?: Yes Alcohol intake: never Lives independently: Yes Household members: spouse Housing: House Marital status: service: No Current occupational status: employed Current occupation: works at [email or web address] currently 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 Pets and animals: Yes History of recent travel: No Current gender identity: Male Physical Exam Const: GENERAL APPEARANCE: well developed ORIENTATION/CONSCIOUSNESS: Yes oriented to person, Yes oriented to place and Yes oriented to time HENMT: COMMON NORMALS: normocephalic, external ears normal and Normal external nose present HEAD & SCALP: normocephalic FACE & SINUS: normal facial exam NOSE: Normal external nose present and No nasal discharge present EXTERNAL EAR: Yes external ears normal MOUTH: tongue normal TEETH & GINGIVA: no abnormal tooth and associated gingiva THROAT: posterior oropharynx normal; no peritonsillar mass Eye: COMMON NORMALS: Equal, round and reactive pupils present, EOMs intact bilaterally and conjunctivae normal EYELID: eyelids normal CONJUNCTIVA: Yes conjunctivae normal PUPIL: Yes Equal, round and reactive pupils present Neck/C-Spine: GENERAL: No tracheal deviation Chest: COMMONS NORMALS: normal inspection of the chest CHEST: No tenderness Resp: COMMON NORMALS: clear to auscultation bilaterally EFFORT & INSPECTION: Yes tachypneic, No respiratory distress, No retractions, No uses accessory muscles and No tracheal deviation AUSCULTATION: clear to auscultation bilaterally, no rhonchi, wheezes and diminished lung sounds Cardio: COMMON NORMALS: regular rate and regular rhythm RATE: regular rate RHYTHM: regular rhythm HEART SOUNDS: no murmurs PERIPHERAL PULSES: radial pulses present GI: INSPECTION: No abdominal distension AUSCULTATION: No Hyperactive bowel sounds present and No Hypoactive bowel sounds present PALPATION: No Guarding due to palpation present (GI) and No Rigid due to palpation PERCUSSION: no dullness to percussion and no tympanic to percussion Neuro: SENSORIUM/ORIENTATION: Yes oriented to person, Yes oriented to place and Yes oriented to time Psych: COMMON NORMALS: mental status grossly normal Skin: COMMON NORMALS: no rashes or lesions noted GENERAL SKIN EXAM: no rashes or lesions noted Course Vital Signs: Vital signs: Vital Signs Temperature 97.6 F 11/02/20 21:20 Pulse Rate 78 11/03/20 02:02 Respiratory Rate 18 11/03/20 02:02 Blood Pressure 111/82 11/03/20 02:02 Pulse Oximetry 97 11/03/20 02:02 MDM - SOB/Dyspnea MDM Narrative: Medical decision making narrative: 60-year-old male with a history of restrictive lung disease, lung mass, and atrial fibrillation. He presents short of breath. His room air saturation currently is 96%. His respiratory rates down to 20-22. Heart rate is regular at 84 he has put out quite a bit of urine after Lasix IV here. Since he is not requiring oxygen, and somewhat improved, I believe he can be discharged on steroids, antibiotics, and Lasix. He knows to return for worsening symptoms despite treatment. Lab Data: Labs: Lab Results 11/02/20 11/02/20 11/02/20 Range/Units 00:05 22:26 22:26 WBC 7.5 (4.0-10.0) 10^3/ uL RBC 5.03 (4.1-5.3) 10^6/u L Hgb 14.6 (11.7-16.6) g/dL Hct 44.9 (42.0-52.0) % MCV 89.3 (80-94) fL MCH 29.0 (28.0-34.0) pg MCHC 32.5 (30.0-36.0) g/dL RDW 12.8 (12.1-15.1) % Plt Count 184 (130-400) 10^3/c mm MPV 11.3 H (7.4-10.4) fL Neut % (Auto) 55.5 % Lymph % (Auto) 27.0 % [place] % (Auto) 11.4 % Eos % (Auto) 5.7 % Baso % (Auto) 0.3 % Neut # (Auto) 4.15 (1.8-7.7) 10^3/u L Lymph # (Auto) 2.0 (0.8-4.8) 10^3/u L [place] # (Auto) 0.9 (0.2-0.9) 10^3/u L Eos # (Auto) 0.4 (0.0-0.8) 10^3/u L Baso # (Auto) 0.0 (0.0-0.1) 10^3/u L Nucleated RBC % (a uto) 0 % Nucleated RBCs # 0.0 /100WBC PT 15.10 H (12.1-14.9) SECO NDS INR 1.15 (0.8-1.2) D-Dimer 0.61 H (0-0.59) ug/mIFE U Specimen Type Arterial Sample Site Radial, right ABG pH 7.41 (7.35-7.45) ABG pCO2 40.4 (35-45) mmHg ABG pO2 76.4 L (80.0-100.0) mmH g ABG HCO3 25.6 (22-26) mmol/L ABG Base Excess 0.9 (-2.0-2.0) mmol/ L Raimundo Test Pos Hematocrit 50.5 (42-52) % Hgb O2 Saturation 94.5 L (95-100) % Carboxyhemoglobin 0.8 (0.4-20.1) %THgb Methemoglobin 0.7 (0.4-1.5) % Total Hemoglobin 16.5 (14-18) g/dL O2 Delivery Device Room air Time Study Engineer ID [email or web address] Sodium (136-145) mmol/L Potassium (3.5-5.1) mmol/L Chloride (98-107) mmol/L Carbon Dioxide (22-29) mmol/L Anion Gap (5-19) BUN (8-23) mg/dL Creatinine (0.7-1.2) mg/dL GFR Calculation (90-130) mL/min Glucose (65-115) mg/dL Calculated Osmolal ity (285-295) mOsm/k g Lactic Acid (0.5-2.2) mmol/L Calcium (8.5-10.5) mg/dL Total Bilirubin (0.15-1.2) mg/dL AST (0-40) U/L ALT (0-41) U/L Alkaline Phosphata se (40-130) IU/L Troponin T Baselin e (0-15) ng/L NT-Pro-B Natriuret Pep (0-125) pg/mL Total Protein (6.6-8.7) g/dL Albumin (3.5-5.2) g/dL Globulin (1.3-4.6) g/dL 11/02/20 11/02/20 11/02/20 Range/Units 22:26 22:26 22:26 WBC (4.0-10.0) 10^3/ uL RBC (4.1-5.3) 10^6/u L Hgb (11.7-16.6) g/dL Hct (42.0-52.0) % MCV (80-94) fL MCH (28.0-34.0) pg MCHC (30.0-36.0) g/dL RDW (12.1-15.1) % Plt Count (130-400) 10^3/c mm MPV (7.4-10.4) fL Neut % (Auto) % Lymph % (Auto) % [place] % (Auto) % Eos % (Auto) % Baso % (Auto) % Neut # (Auto) (1.8-7.7) 10^3/u L Lymph # (Auto) (0.8-4.8) 10^3/u L [place] # (Auto) (0.2-0.9) 10^3/u L Eos # (Auto) (0.0-0.8) 10^3/u L Baso # (Auto) (0.0-0.1) 10^3/u L Nucleated RBC % (a uto) % Nucleated RBCs # /100WBC PT (12.1-14.9) SECO NDS INR (0.8-1.2) D-Dimer (0-0.59) ug/mIFE U Specimen Type Sample Site ABG pH (7.35-7.45) ABG pCO2 (35-45) mmHg ABG pO2 (80.0-100.0) mmH g ABG HCO3 (22-26) mmol/L ABG Base Excess (-2.0-2.0) mmol/ L Raimundo Test Hematocrit (42-52) % Hgb O2 Saturation (95-100) % Carboxyhemoglobin (0.4-20.1) %THgb Methemoglobin (0.4-1.5) % Total Hemoglobin (14-18) g/dL O2 Delivery Device Time Study Engineer ID Sodium 144 (136-145) mmol/L Potassium 4.1 (3.5-5.1) mmol/L Chloride 110 H (98-107) mmol/L Carbon Dioxide 26 (22-29) mmol/L Anion Gap 12.1 (5-19) BUN 15 (8-23) mg/dL Creatinine 1.0 (0.7-1.2) mg/dL GFR Calculation 76.2 L (90-130) mL/min Glucose 113 (65-115) mg/dL Calculated Osmolal ity 300 H (285-295) mOsm/k g Lactic Acid 1.4 (0.5-2.2) mmol/L Calcium 8.8 (8.5-10.5) mg/dL Total Bilirubin 0.4 (0.15-1.2) mg/dL AST 31 (0-40) U/L ALT 30 (0-41) U/L Alkaline Phosphata se 113 (40-130) IU/L Troponin T Baselin e 9 (0-15) ng/L NT-Pro-B Natriuret Pep 3960 H (0-125) pg/mL Total Protein 5.9 L (6.6-8.7) g/dL Albumin 3.8 (3.5-5.2) g/dL Globulin 2.1 (1.3-4.6) g/dL Discharge Plan Discharge Patient Disposition: Home Clinical Impression: Restrictive pattern present on pulmonary function testing Atrial fibrillation Qualifiers: Atrial fibrillation type: unspecified Qualified Code(s): I48.91 - Unspecified atrial fibrillation Congestive heart failure Qualifiers: Heart failure type: right-sided Heart failure chronicity: acute Qualified Code(s): I50.811 - Acute right heart failure Condition: Stable Prescriptions: New prednisone 20 mg tablet 60 mg PO DAILY 5 Days Qty: 15 RF: 0 doxycycline hyclate 100 mg capsule 100 mg PO BID 7 Days Qty: 14 RF: 0 albuterol sulfate 90 mcg/actuation HFA aerosol inhaler 2 inh INHALATION Q4H PRN (Reason: shortness of breath or wheezing) Qty: 6.7 RF: 1 Lasix 40 mg tablet 40 mg PO DAILY Qty: 3 RF: 0 No Action metoprolol tartrate 100 mg tablet 100 mg PO BID RF: 0 methimazole 5 mg tablet 5 mg PO DAILY RF: 0 Incruse Ellipta 62.5 mcg/actuation blister with device 1 inh inhalation DAILY Qty: 30 RF: 3 hydrochlorothiazide 25 mg Tablet 25 mg PO DAILY RF: 0 Eliquis 5 mg Tablet 5 mg PO BID RF: 0 Discharge Orders: Discharge ED (Routine); Ordered 11/03/20 Ordered By: Carl Sy Referrals: Taran Cruz Jr, MD [Primary Care Provider] - 1-3 days Patient Instructions: Pulmonary Edema (ED) Activity Restrictions/Additional Instructions: Stop your hydrochlorothiazide for the next 3 days. Instead use the furosemide you were prescribed. You may return to hydrochlorothiazide following this. Other medications as directed. Use your inhaler every 4 hours while awake for the next 48 hours, then as needed. Return for fever greater than 100 despite 2-3 doses of antibiotics, worsening shortness of breath despite treatment, chest pain despite treatment, any other concerning symptoms. Stand Alone Forms: Work/School Release Coding Level of Care Code ED Nurse Practitioner Physicians Assistant for Chg Fwd Exam Comprehensive
[2020-11-02 22:34] VITALS: BP 149/107; PULSE 77; RESP 24; O2SAT 97
[2020-11-02 22:35] LABS: Basophils % 0.3 %; Eosinophils # 0.4 10^3/uL (0.0-0.8); Eosinophils % 5.7 %; Hematocrit 44.9 % (42.0-52.0); Hemoglobin 14.6 g/dL (11.7-16.6); Mean Corpuscular HGB Conc 32.5 g/dL (30.0-36.0); Mean Corpuscular Volume 89.3 fL (80-94); Mean Platelet Volume 11.3 fL (7.4-10.4); Monocytes # 0.9 10^3/uL (0.2-0.9); Monocytes % 11.4 %; Neutrophils # 4.15 10^3/uL (1.8-7.7); Neutrophils % 55.5 %; Nucleated Red Blood Cells % 0 %; Platelet Count 184 10^3/cmm (130-400); Red Blood Count 5.03 10^6/uL (4.1-5.3); Red Cell Distribution Width 12.8 % (12.1-15.1); White Blood Count 7.5 10^3/uL (4.0-10.0)
[2020-11-02 22:55] LABS: Lactic Sepsis W/Reflex 1.4 mmol/L (0.5-2.2)
[2020-11-02 22:58] LABS: Troponin(5th) Baseline 9 ng/L (0-15)
--- NOTE | 2020-11-02 23:04 | PC.NURSE ---
report received from RICHARD PENALOZA and care transferred to RICHARD Phan
[2020-11-02 23:05] VITALS: BP 159/113; PULSE 79; O2SAT 98
[2020-11-02 23:07] LABS: Alanine Aminotransferase 30 U/L (0-41); Albumin Level 3.8 g/dL (3.5-5.2); Alkaline Phosphatase 113 IU/L (40-130); Anion Gap 12.1 (5-19); Aspartate Amino Transferase 31 U/L (0-40); Blood Urea Nitrogen 15 mg/dL (8-23); Calcium 8.8 mg/dL (8.5-10.5); Carbon Dioxide 26 mmol/L (22-29); Chloride 110 mmol/L (98-107); Globulin 2.1 g/dL (1.3-4.6); Glomerular Filtration Rate 76.2 mL/min (90-130); Glucose 113 mg/dL (65-115); NT Pro B Type Natriuretic Pept 3960 pg/mL (0-125); Osmolality Calculated 300 mOsm/kg (285-295); Potassium 4.1 mmol/L (3.5-5.1); Sodium 144 mmol/L (136-145); Total Bilirubin 0.4 mg/dL (0.15-1.2); Total Protein 5.9 g/dL (6.6-8.7)
[2020-11-02 23:09] LABS: INR 1.15 (0.8-1.2)
[2020-11-02 23:25] LABS: D Dimer 0.61 ug/mIFEU (0-0.59)
[2020-11-02] MEDS: FUROsemide 10 mg/mL SDV 10mL 80 MG IVP (23:57)
[2020-11-02] MEDS: nitroglycerin 1 gm/inch oint Pkt 1 INCH TOPICAL (23:57)
[2020-11-03] VITALS: BP 165/124; PULSE 97; RESP 18; O2SAT 95
[2020-11-03 00:13] LABS: ABG PCO2 40.4 mmHg (35-45); ABG PH Result 7.41 (7.35-7.45); Arterial Blood Gas Hematocrit 50.5 % (42-52); Base Excess ABG 0.9 mmol/L (-2.0-2.0); Blood Gas Allen Test Pos; Blood Gas Sample Site Radial, right; Blood Gas Sample Type Arterial; Carboxyhemoglobin 0.8 %THgb (0.4-20.1); HCO3 ABG 25.6 mmol/L (22-26); HGB O2 Sat 94.5 % (95-100); Methemoglobin 0.7 % (0.4-1.5); Oxygen Device ROOM AIR; PO2 ABG 76.4 mmHg (80.0-100.0); Total Hemoglobin 16.5 g/dL (14-18)
[2020-11-03] MEDS: metoprolol tartrate 1 mg/1 mL SDV 5 mL 5 MG IV (00:20)
[2020-11-03 01:00] VITALS: BP 141/99; PULSE 85; O2SAT 96
[2020-11-03 01:43] VITALS: PULSE 80; RESP 22; O2SAT 97
[2020-11-03] MEDS: ipratropium-albuterol 3 mL Neb INHALATION (01:43)
[2020-11-03 01:46] VITALS: PULSE 87; O2SAT 98
[2020-11-03] MEDS: doxycycline 100 mg Tablet PO (01:58)
[2020-11-03 02:02] VITALS: BP 111/82; PULSE 78; RESP 18; O2SAT 97
== END 2020-11-03 01:58 | disposition home or self-care (01) ==
PROVIDERS: Emergency Provider Emergency Medicine; PCP Family Medicine
DX: I48.91 Unspecified atrial fibrillation (principal); I50.811 Acute right heart failure; I50.9 Heart failure, unspecified; Z79.01 Long term (current) use of anticoagulants; Z77.22 Contact with and (suspected) exposure to environmental tobacco smoke (acute) (chronic)
CPT/HCPCS: 36415; 36600; 71045; 80053; 82805; 83605; 83880; 84484; 85025; 85378; 85610; 87040; 93005; 94640; 96374; 96375; 99284; J1940; J2930; J3490

== ENCOUNTER 2020-11-25 13:58 | Outpatient (CLI) | payer OTHER, SELFPAY ==
--- NOTE | 2020-11-25 14:00 | CT_ITS ---
WS: [id number] CT CHEST high-resolution CT. HISTORY: rule out interstitial lung disease TECHNIQUE: High-resolution imaging through the chest performed. Inspiration and expiration imaging. C oronal and sagittal reformats are submitted. All CT scans at [facility] use at least one of these dose optimization techniques: automated exposure control; mA and/or kV adjustment per patien t size (includes targeted exams where dose is matched to clinical indication); or iterative reconstru ction. CONTRAST: None DLP: 318.79 mGy.cm COMPARISON: 09/24/2020 Mild eventration and elevation of the LEFT hemidiaphragm. Linear area of atelectasis in the LEFT uppe r lobe. Favor this is probably rounded atelectasis but the area of consolidation is increased since . With prone positioning this does not significantly improved. No bronchiectasis or honeycombing is identified. No definite evidence for bronchiectasis. Very mild e shell changes of developing bronchiectasis in the RIGHT middle lobe and lower lobes. There is mild ple ural thickening in the LEFT lung field. There is very mild mosaic attenuation on the expiration porti on the examination with no air trapping. Moderate cardiomegaly. No pericardial effusion. Mild ectasia thoracic aorta. No pulmonary nodule or m ass. CT/CT chest wo con [id number] IMPRESSION: 1. Increasing area of consolidation in the LEFT upper lobe. Mild progression o f consolidation since 09/24/2020. Favor this is an area of rounded atelectasis. 2. No bronchiectasis or honeycombing or mass identified.
== END 2020-11-25 13:59 | disposition home or self-care (01) ==
PROVIDERS: PCP Family Medicine; Visit Provider Internal Medicine Pulmonary Disease
DX: R94.2 Abnormal results of pulmonary function studies (principal)
CPT/HCPCS: 71250

== ENCOUNTER → 2021-02-25 08:45 | Outpatient (BNVA) | payer OTHER, SELFPAY | PROVIDERS: PCP Family Medicine; Visit Provider Internal Medicine Rheumatology | DX: M70.61 Trochanteric bursitis, right hip (principal); M75.52 Bursitis of left shoulder; Y93.9 Activity, unspecified; Z82.61 Family history of arthritis; I48.91 Unspecified atrial fibrillation; R94.2 Abnormal results of pulmonary function studies; Z79.899 Other long term (current) drug therapy | CPT/HCPCS: 99203 ==

== ENCOUNTER 2021-02-25 14:53 | Outpatient (CLI) | payer OTHER, SELFPAY ==
--- NOTE | 2021-02-25 14:57 | XR_ITS ---
WS: [id number] Pelvis, AP view, 02/25/2021 Clinical Data: M25.50 - Pain in unspecified joint Comparison: None. Findings: No fractures or dislocations are seen. The SI joints and pubic symphysis are intact. The soft tissues are not remarkable. There are acetabular lips bilaterally. XR/XR pelvis 1-2V* [id number] Impression: Mild bilateral osteoarthritis of the hips.
[2021-02-26 14:08] LABS: Cyclic Citrullinated Peptide <16 UNITS
== END 2021-02-25 14:54 | disposition home or self-care (01) ==
PROVIDERS: PCP Family Medicine; Visit Provider Internal Medicine Rheumatology
DX: M25.50 Pain in unspecified joint (principal); M25.559 Pain in unspecified hip; Z79.899 Other long term (current) drug therapy; Z82.61 Family history of arthritis
CPT/HCPCS: 72170; 86431

== ENCOUNTER 2023-02-09 11:33 | Emergency (ER) | payer BC, SELFPAY ==
[2023-02-09 11:37] VITALS: BP 131/87; PULSE 80; RESP 18; O2SAT 100; BMI 23.1
--- NOTE | 2023-02-09 12:37 | W.ED.SKABFB ---
HPI - Skin/Abscess/Foreign Bdy General: Chief complaint: Skin/Abscess/Foreign Body Stated complaint: Rash that iches Time Seen by Provider: 02/09/23 12:38 History of Present Illness: This 63-year-old male with a history of A-fib, hypertension and hip arthralgia presents to the ER with chronic rash that has been going on for several months. He has taken 2 courses of steroids (prednisone) which provides temporary relief. Currently he is on [id number] cetirizine and Pepcid. Rash is itchy. There is no associated fever. He reports having diarrhea with dark urine ever since this rash started. He has about 4-5 bowel movements a day that is watery. His primary care provider screen him for tickborne illness. He is not sure of the results. Patient appears clinically stable. Associated symptoms: Deny chills Review of Systems Const: Denies: chills, body aches or change in appetite Eyes: Denies: change in vision or eye discharge ENMT: Denies: throat pain, dental pain or nasal discharge Card: Denies: chest pain or lightheadedness GI: Reports: diarrhea : Reports: other (Dark urine) Musc: Denies: neck pain or back pain Skin/Breast: Reports: rash and pruritus Neuro: Denies: headache(s) or weakness in extremities Psych: Denies: depression Sin/Lymph: Denies: easy bruising All/Imm: Denies: urticaria, tongue swelling or facial swelling PFSH ED PFSH: Medical History (Updated 02/09/23 @ 16:16 by Zac Mullen MD) Arthralgia of hip Atrial fibrillation BPH (benign prostatic hyperplasia) Chronic anticoagulation Chronic lung disease Patient reports failed pulmonary function testing in the past for occupational reasons, no formal PFTs documented Hypertension Surgical History History of cholecystectomy History of tonsillectomy and adenoidectomy Family History Father Congestive heart failure Mother Cancer Social History (Updated 11/17/20 @ 11:03 by Abdiaziz Carrillo LPN) Smoking and tobacco status: never smoked Second hand smoke exposure: Yes Smoking risk assessment/counseling performed?: Yes Alcohol intake: never Substance/Drug Use: never Lives independently: Yes Household members: spouse Housing: House Marital status: service: No Current occupational status: employed Current occupation: works at [employer] currently 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 Pets and animals: Yes Do you think of yourself as: Straight/Heterosexual Current gender identity: Male Physical Exam Const: COMMON NORMALS: no acute distress, patient oriented x3, no limitations and alert HENMT: COMMON NORMALS: normocephalic HEAD & SCALP: normocephalic Eye: COMMON NORMALS: EOMs intact bilaterally Neck/C-Spine: COMMON NORMALS: full ROM and supple Chest: COMMONS NORMALS: normal inspection of the chest Resp: COMMON NORMALS: normal respiratory effort, No retractions, No use of accessory muscles and clear to auscultation bilaterally AUSCULTATION: clear to auscultation bilaterally Cardio: COMMON NORMALS: regular rate, regular rhythm and No murmurs present (Cardio) RATE: regular rate RHYTHM: regular rhythm GI: COMMON NORMALS: Normal to inspection, nondistended, normoactive bowel sounds present and non-tender : COMMON NORMALS: Yes no CVA tenderness BLADDER/KIDNEY EXAM: Yes no CVA tenderness Back/Pelvis: COMMON NORMALS: no CVA tenderness and no thoracic nor lumbar tenderness Extremity: GENERAL: Yes normal exam except as noted Neuro: COMMON NORMALS: patient oriented x3 and no focal motor deficits SENSORIUM/ORIENTATION: Yes alert Psych: COMMON NORMALS: mental status grossly normal and cooperative Skin: OTHER: Erythematous maculopapular rash mostly in both forearms and to a lesser extent the lower extremity and the trunk. Course Vital Signs: Vital signs: Vital Signs Pulse Rate 68 02/09/23 18:51 Respiratory Rate 18 02/09/23 18:51 Blood Pressure 138/71 02/09/23 18:51 Pulse Oximetry 100 02/09/23 18:51 Oxygen Delivery Me thod Room Air 02/09/23 14:30 MDM - Skin/Abscess/Foreign Bdy Medicial Decision Making Medical decision making: This 62-year-old male presents to the ER with skin rash that has lasted for several months. He has been treated with 2 rounds of steroids without much improvement. He is clinically jaundiced. Work-up reveals obstructive jaundice with total bilirubin of 13.5. Direct bilirubin is 10.3. LFTs are abnormal. CT abdomen/pelvis reveals dilatation of the common bile duct with mass at the head of the pancreas. This is highly suspicious for pancreatic cancer causing obstructive jaundice. He will be transferred to a tertiary center. Patient was updated on the plan and he prefers to be transferred to [place]. Case discussed with Nithya Andres WEAPONS OFFICER to Dr. Berumen ([facility]). She accepted patient in transfer. Lab Data 02/09/23 12:43 02/09/23 12:43 Radiology Impressions Gallbladder Ultrasound 02/09/23 13:58 IMPRESSION: 1. Markedly dilated common bile duct dilatation status post cholecystectomy. Pancreas is completely obscured by bowel gas. Pancreatic head mass needs to be excluded. 2. Please refer to CT abdomen and pelvis report that was performed on the same day. 3. Intrahepatic duct dilatation also. Abdomen/Pelvis CT 02/09/23 13:59 IMPRESSION: 1. Interval development of marked common bile duct dilatation and pancreatic duct dilatation since 03/05/2019. Fullness and increased enhancement of the pancreatic head. Highly suspicious for pancreatic head mass. There is an abrupt termination of the common bile duct. Recommend further evaluation by ERCP. MRCP would also provide additional information. Endoscopic ultrasound evaluation may be necessary for cytology. 2. Short segment thrombus in the SMV. 3. Prior cholecystectomy. 4. Intrahepatic and extra hepatic bile duct dilatation on the basis of an obstructed distal common bile duct. 5. No ascites or adenopathy. 6. Hepatic cysts. Laboratory Results WBC 8.4 10^3/uL (4.0-10.0) 02/09/23 12:43 RBC 5.49 10^6/uL (4.1-5.3) H 02/09/23 12:43 Hgb 15.6 g/dL (11.7-16.6) 02/09/23 12:43 Hct 48.3 % (42.0-52.0) 02/09/23 12:43 MCV 88.0 fl (80-94) 02/09/23 12:43 MCH 28.4 pg (28.0-34.0) 02/09/23 12:43 MCHC 32.3 g/dL (30.0-36.0) 02/09/23 12:43 RDW 15.0 % (12.1-15.1) 02/09/23 12:43 Plt Count 215 10^3/cmm (130-400) 02/09/23 12:43 MPV 11.7 fL (7.4-10.4) H 02/09/23 12:43 Neut % (Auto) 63.2 % 02/09/23 12:43 Lymph % (Auto) 22.5 % 02/09/23 12:43 [place] % (Auto) 11.4 % 02/09/23 12:43 Eos % (Auto) 2.0 % 02/09/23 12:43 Baso % (Auto) 0.5 % 02/09/23 12:43 Neut # (Auto) 5.30 10^3/uL (1.8-7.7) 02/09/23 12:43 Lymph # (Auto) 1.9 10^3/uL (0.8-4.8) 02/09/23 12:43 [place] # (Auto) 1.0 10^3/uL (0.2-0.9) H 02/09/23 12:43 Eos # (Auto) 0.2 10^3/uL (0.0-0.8) 02/09/23 12:43 Baso # (Auto) 0.0 10^3/uL (0.0-0.1) 02/09/23 12:43 Nucleated RBC % (auto) 0 % 02/09/23 12:43 Nucleated RBCs # 0.0 /100WBC 02/09/23 12:43 Sodium 131 mmol/L (136-145) L 02/09/23 12:43 Potassium 3.7 mmol/L (3.5-5.1) 02/09/23 12:43 Chloride 96 mmol/L (98-107) L 02/09/23 12:43 Carbon Dioxide 22 mmol/L (22-29) 02/09/23 12:43 Anion Gap 16.7 (5-19) 02/09/23 12:43 BUN 19 mg/dL (8-23) 02/09/23 12:43 Creatinine 0.5 mg/dL (0.7-1.2) L 02/09/23 12:43 GFR Calculation 168.5 mL/min (90-130) H 02/09/23 12:43 Glucose 292 mg/dL (65-115) H 02/09/23 12:43 Calculated Osmolality 285 mOsm/kg (285-295) 02/09/23 12:43 Calcium 9.3 mg/dL (8.5-10.5) 02/09/23 12:43 Total Bilirubin 13.2 mg/dL (0.15-1.2) H* 02/09/23 12:43 Total Bilirubin 13.5 mg/dL (0.15-1.2) H* 02/09/23 12:43 Direct Bilirubin 10.30 mg/dL (0.00-0.30) H 02/09/23 12:43 Indirect Bilirubin 3.20 02/09/23 12:43 AST 106 U/L (0-40) H 02/09/23 12:43 ALT 257 U/L (0-41) H 02/09/23 12:43 Alkaline Phosphatase 444 U/L (40-130) H 02/09/23 12:43 Ammonia 26 umol/L (16-60) 02/09/23 16:11 Total Protein 6.6 g/dL (6.6-8.7) 02/09/23 12:43 Albumin 3.6 g/dL (3.5-5.2) 02/09/23 12:43 Globulin 3.0 g/dL (1.3-4.6) 02/09/23 12:43 Lipase 153 U/L (13-60) H 02/09/23 12:43 Discharge Plan Discharge Patient Disposition: Xfer [facility] Clinical Impression: Obstructive jaundice, Mass of head of pancreas Condition: Stable Referrals: Taran Cruz Jr, MD [Primary Care Provider] - Coding Level of Care Code ED [employer] Operator for [facility] Neal
[2023-02-09 13:22] LABS: Basophils % 0.5 %; Eosinophils # 0.2 10^3/uL (0.0-0.8); Hematocrit 48.3 % (42.0-52.0); Hemoglobin 15.6 g/dL (11.7-16.6); Lymphocytes # 1.9 10^3/uL (0.8-4.8); Lymphocytes % 22.5 %; Mean Corpuscular HGB Conc 32.3 g/dL (30.0-36.0); Mean Corpuscular Hemoglobin 28.4 pg (28.0-34.0); Mean Platelet Volume 11.7 fL (7.4-10.4); Monocytes % 11.4 %; Neutrophils % 63.2 %; Nucleated Red Blood Cells % 0 %; Platelet Count 215 10^3/cmm (130-400); Red Blood Count 5.49 10^6/uL (4.1-5.3); White Blood Count 8.4 10^3/uL (4.0-10.0)
[2023-02-09 13:43] LABS: Alanine Aminotransferase 257 U/L (0-41); Albumin Level 3.6 g/dL (3.5-5.2); Alkaline Phosphatase 444 U/L (40-130); Anion Gap 16.7 (5-19); Aspartate Amino Transferase 106 U/L (0-40); Blood Urea Nitrogen 19 mg/dL (8-23); Calcium 9.3 mg/dL (8.5-10.5); Carbon Dioxide 22 mmol/L (22-29); Chloride 96 mmol/L (98-107); Glomerular Filtration Rate 168.5 mL/min (90-130); Glucose 292 mg/dL (65-115); Osmolality Calculated 285 mOsm/kg (285-295); Potassium 3.7 mmol/L (3.5-5.1); Sodium 131 mmol/L (136-145); Total Protein 6.6 g/dL (6.6-8.7)
[2023-02-09 13:46] LABS: Total Bilirubin 13.2 mg/dL (0.15-1.2)
[2023-02-09 13:57] VITALS: BP 125/97; RESP 18; O2SAT 100
--- NOTE | 2023-02-09 13:58 | US_ITS ---
WS: [id number] RIGHT UPPER QUADRANT ULTRASOUND HISTORY: Obstructive jaundice COMPARISON: None available. Liver: 17.3 cm in length. Liver is slightly enlarged. Moderate central bile duct dilatation. Common b ile duct measures 2.0 cm. Portal Vein: Normal hepatopetal flow with monophasic waveform. Gallbladder: Prior cholecystectomy. CBD: 2.0 cm Pancreas: Portions of the head and tail are obscured. The body is negative. Right kidney: 9.7 cm in length. Normal size and echogenicity. No hydronephrosis or mass. Aorta and IVC: Unremarkable abdominal aorta and IVC. No ascites. US/US gall bladder [id number] IMPRESSION: 1. Markedly dilated common bile duct dilatation status post cholecystectomy. P ancreas is completely obscured by bowel gas. Pancreatic head mass needs to be e xcluded. 2. Please refer to CT abdomen and pelvis report that was performed on the same day. 3. Intrahepatic duct dilatation also.
--- NOTE | 2023-02-09 13:59 | CT_ITS ---
WS: [id number] CT ABDOMEN AND PELVIS WITH CONTRAST HISTORY: Obstructive jaundice TECHNIQUE: Imaging performed of the abdomen and pelvis with IV contrast. Single phase imaging of the abdomen. Coronal and sagittal reformats are submitted. All CT scans at [facility] use at [address] one of these dose optimization techniques: automated exposure control; mA and/or kV adjustment per patient size (includes targeted exams where dose is matched to clinical indication); or iterative re construction. IV CONTRAST: Omnipaque 350; 100 mL IV. Oral contrast: No DLP: 462.26 mGy.cm COMPARISON: 03/05/2019 Lower thorax: Elevated LEFT hemidiaphragm is similar to prior studies. Lung bases are clear. Heart is normal size. No hiatal hernia. Liver/biliary system: Liver is normal size. Scattered low-attenuation masses consistent with cysts. L argest towards the diaphragmatic surface measures 12 mm. There is additional moderate central bile du ct dilatation. Common bile duct is markedly dilated at 2.5 cm. Gallbladder: Surgically removed. Pancreas: New since the prior examination is pancreatic duct dilatation. Abrupt termination of the co mmon bile duct also at the pancreatic head. Findings are highly suspicious for pancreatic head mass a lthough poorly visualized by CT. The pancreatic head does appear enlarged as compared to study from 2 019. The adjacent SMV is greater than 50% obstructed by thrombus. This is also at the level of the pa ncreatic head. Spleen: Normal size spleen. No mass or infarct. Adrenal glands: Normal. Right kidney: Normal size. Cortical hypodensities too small to characterize. No obstruction. Left kidney: Normal. Aorta: Normal size abdominal aorta with mild atherosclerotic plaque. Lymphadenopathy: None. Free fluid: None. GI tract: Unremarkable. Abdominal wall: Unremarkable abdominal wall. No hernia. Pelvis: Moderately distended urinary bladder. Mildly heterogeneous prostate gland. Bones: Unremarkable. CT/CT abdomen pelvis w con* [id number] IMPRESSION: 1. Interval development of marked common bile duct dilatation and pancreatic d uct dilatation since 03/05/2019. Fullness and increased enhancement of the pancre atic head. Highly suspicious for pancreatic head mass. There is an abrupt termi nation of the common bile duct. Recommend further evaluation by ERCP. MRCP woul d also provide additional information. Endoscopic ultrasound evaluation may be necessary for cytology. 2. Short segment thrombus in the SMV. 3. Prior cholecystectomy. 4. Intrahepatic and extra hepatic bile duct dilatation on the basis of an obst ructed distal common bile duct. 5. No ascites or adenopathy. 6. Hepatic cysts.
[2023-02-09] MEDS: iohexol 350 mg/mL 500 mL Btl (per mL) IV (14:28)
[2023-02-09 14:30] VITALS: BP 128/93; O2SAT 98
[2023-02-09 16:06] LABS: Total Bilirubin 13.5 mg/dL (0.15-1.2)
[2023-02-09 16:19] LABS: Lipase 153 U/L (13-60)
[2023-02-09 16:30] LABS: Ammonia 26 umol/L (16-60)
[2023-02-09 18:18] VITALS: BP 148/100; RESP 17
[2023-02-09 18:51] VITALS: BP 138/71; PULSE 68; RESP 18; O2SAT 100
== END 2023-02-09 18:56 ==
PROVIDERS: Emergency Provider Family Medicine; PCP Family Medicine
DX: K83.1 Obstruction of bile duct (principal); R93.3 Abnormal findings on diagnostic imaging of other parts of digestive tract
CPT/HCPCS: 36415; 74177; 76705; 80053; 82140; 82247; 82248; 83690; 85025; 99285; Q9967

== ENCOUNTER 2023-02-21 07:56 | Oncology outpatient (recurring) (ONCR) | payer BC, SELFPAY | END 2023-02-25 23:59 | disposition home or self-care (01) | PROVIDERS: PCP Family Medicine; Visit Provider Internal Medicine Hematology & Oncology | DX: Z53.9 Procedure and treatment not carried out, unspecified reason (principal) ==

== ENCOUNTER 2023-03-05 05:45 | Outpatient (CLI) | payer MEDICAID, SELFPAY ==
--- NOTE | 2023-03-05 09:30 | PETR_ITS ---
PROCEDURE INFORMATION: Exam: PET/CT Skull Base to Mid-thigh Exam date and time: 03/05/2023 9:36 AM Age: 63 years old Clinical indication: Condition or disease; Primary cancer: Malignant neoplasm of pancreas; Follow-up oncological assessment; Additional info: Staging, carlos LABS AND CLINICAL REPORTS: Glucose: 164 mg/dl Treatment strategy for malignancy (PET staging): Restaging (PS) TECHNIQUE: Imaging protocol: Following at least four-hour fasting and following the injection of radiopharmaceutical, low dose CT images were obtained. Then, PET images were obtained. Attenuation corrected images were constructed using the CT scan. Fused images of PET and CT were reviewed. The standardized uptake values (SUV) reported below are maximum values within a region of interest, expressed in gm/ml. Exam includes orbital meatal line to mid-thigh. Radiopharmaceutical: 15.1 mCi F-18 FDG (Fluorodeoxyglucose), IV. Time of imaging post radiopharmaceutical administration: 1 hour Injection site: Left antecubital COMPARISON: Right upper quadrant ultrasound 02/09/2023, CT abdomen pelvis w con* [id number] 02/09/2023 2:18 PM, CT chest 11/25/2020 FINDINGS: Brain: Visualized brain has normal physiologic uptake. Pharynx: No abnormal uptake. Larynx: No abnormal uptake. Lungs, pleura and trachea: No abnormal uptake. Focal patchy, irregularly marginated consolidation in the left upper lobe is similar in configuration and extent compared with 11/25/2020 measuring up to 3.0 x 2.6 cm in the axial plane on series 3, image 54, with an SUV max 1.9. Heart: Normal physiologic uptake. Mediastinal space: No abnormal uptake. Liver: No abnormal uptake. A 1.6 cm in diameter anterior right liver lobe simple cyst is not radiotracer avid. An additional simple cyst in the mid right liver lobe measures 1.2 cm on series 3, image 91. Gallbladder and bile ducts: Cholecystectomy clips are present. A stent in the common bile duct is noted. Uptake along the course of the stent demonstrates an SUV max 3.6 on series 4, image 100 slightly proximal to the pancreatic head. No well-defined mass in this region is noted. There is mild intrahepatic biliary ductal gas. Biliary ductal dilatation has decreased since the prior CT. Pancreas: No abnormal uptake. Similar mild dilatation of the pancreatic duct. Spleen: No abnormal uptake. Adrenal glands: No abnormal uptake. Kidneys and ureters: Normal physiologic uptake. Stomach and bowel: No abnormal uptake. Vasculature: No abnormal uptake. There are diffuse atherosclerotic changes, including within the coronary arteries. Lymph nodes: No abnormal uptake. No lymphadenopathy in the head, neck, chest, abdomen, pelvis, and extremities. Bones/joints: No abnormal uptake in the visualized axial and appendicular skeleton. Soft tissues: No abnormal uptake in the visualized head, neck, chest, abdomen, pelvis, and extremities. METRICS: Mediastinal blood pool: SUV max 2.9 PET[facility] SUBSEQ [id number] IMPRESSION: 1. Interval placement of a common bile duct stent compared with the prior CT of 02/09/2023 with decreased intrahepatic biliary ductal dilatation. Mild uptake along the course of the stent is noted slightly superior to the level of the pancreatic head without a definite mass, possibly artifactual. 2. No definite abnormal uptake within the pancreatic head. Similar mild pancreatic ductal dilatation. 3. Similar patchy consolidation in the left upper lobe since at least 11/25/2020 without elevated uptake, likely related to scarring. 4. Low-density lesions in the liver compatible with benign cysts. No further follow-up is necessary. 5. Additional nonurgent findings as detailed above.
== END 2023-03-05 05:46 | disposition home or self-care (01) ==
LOC: RAD 03-07 05:46
PROVIDERS: PCP Family Medicine; Visit Provider Internal Medicine Hematology & Oncology
DX: C25.0 Malignant neoplasm of head of pancreas (principal)
CPT/HCPCS: 78815; A9552

== ENCOUNTER 2023-03-18 08:59 | Oncology outpatient (recurring) (ONCR) | payer BC, MEDICAID, SELFPAY ==
[2023-03-09 10:17] VITALS: BP 115/76; PULSE 73; RESP 18; TEMP 36.7; O2SAT 97
[2023-03-09 10:27] LABS: Basophils % 0.4 %; Eosinophils # 0.1 10^3/uL (0.0-0.8); Eosinophils % 1.8 %; Hemoglobin 15.2 g/dL (11.7-16.6); Lymphocytes # 2.4 10^3/uL (0.8-4.8); Lymphocytes % 30.9 %; Mean Corpuscular HGB Conc 33.8 g/dL (30.0-36.0); Mean Corpuscular Hemoglobin 29.4 pg (28.0-34.0); Mean Platelet Volume 10.9 fL (7.4-10.4); Monocytes # 0.8 10^3/uL (0.2-0.9); Monocytes % 10.2 %; Neutrophils % 56.3 %; Nucleated Red Blood Cells % 0 %; Platelet Count 210 10^3/cmm (130-400); Red Blood Count 5.17 10^6/uL (4.1-5.3); Red Cell Distribution Width 14.2 % (12.1-15.1); White Blood Count 7.8 10^3/uL (4.0-10.0)
[2023-03-09 10:57] LABS: Alanine Aminotransferase 66 U/L (0-41); Albumin Level 3.8 g/dL (3.5-5.2); Alkaline Phosphatase 165 U/L (40-130); Anion Gap 11.5 (5-19); Aspartate Amino Transferase 42 U/L (0-40); Blood Urea Nitrogen 13 mg/dL (8-23); Calcium 8.6 mg/dL (8.5-10.5); Carbon Dioxide 29 mmol/L (22-29); Chloride 102 mmol/L (98-107); Globulin 2.6 g/dL (1.3-4.6); Glomerular Filtration Rate 97.6 mL/min (90-130); Glucose 235 mg/dL (65-115); Osmolality Calculated 294 mOsm/kg (285-295); Potassium 4.5 mmol/L (3.5-5.1); Sodium 138 mmol/L (136-145); Total Bilirubin 1.2 mg/dL (0.15-1.2); Total Protein 6.4 g/dL (6.6-8.7)
[2023-03-09 11:19] LABS: Cancer Antigen 19 9 1500 U/mL (0-35)
[2023-03-18 09:05] VITALS: BP 125/88; PULSE 89; RESP 18; TEMP 36.4; O2SAT 98
[2023-03-18 09:36] LABS: Basophils % 0.4 %; Eosinophils # 0.3 10^3/uL (0.0-0.8); Eosinophils % 3.5 %; Hematocrit 46.4 % (42.0-52.0); Hemoglobin 15.5 g/dL (11.7-16.6); Lymphocytes # 2.8 10^3/uL (0.8-4.8); Lymphocytes % 30.5 %; Mean Corpuscular HGB Conc 33.4 g/dL (30.0-36.0); Mean Corpuscular Hemoglobin 29.4 pg (28.0-34.0); Mean Corpuscular Volume 87.9 fl (80-94); Mean Platelet Volume 10.8 fL (7.4-10.4); Monocytes % 11.2 %; Neutrophils % 54.1 %; Nucleated Red Blood Cells % 0 %; Platelet Count 192 10^3/cmm (130-400); Red Blood Count 5.28 10^6/uL (4.1-5.3); Red Cell Distribution Width 13.6 % (12.1-15.1); White Blood Count 9.3 10^3/uL (4.0-10.0)
[2023-03-18 10:02] LABS: Alanine Aminotransferase 48 U/L (0-41); Albumin Level 3.6 g/dL (3.5-5.2); Alkaline Phosphatase 166 U/L (40-130); Anion Gap 13.2 (5-19); Aspartate Amino Transferase 36 U/L (0-40); Blood Urea Nitrogen 13 mg/dL (8-23); Calcium 8.9 mg/dL (8.5-10.5); Carbon Dioxide 26 mmol/L (22-29); Chloride 103 mmol/L (98-107); Globulin 2.9 g/dL (1.3-4.6); Glomerular Filtration Rate 85.2 mL/min (90-130); Glucose 206 mg/dL (65-115); Osmolality Calculated 292 mOsm/kg (285-295); Potassium 4.2 mmol/L (3.5-5.1); Sodium 138 mmol/L (136-145); Total Protein 6.5 g/dL (6.6-8.7)
== END 2023-03-28 23:59 | disposition home or self-care (01) ==
PROVIDERS: PCP Family Medicine; Visit Provider Internal Medicine Hematology & Oncology
DX: C25.9 Malignant neoplasm of pancreas, unspecified (principal); I48.91 Unspecified atrial fibrillation; Z79.01 Long term (current) use of anticoagulants
CPT/HCPCS: 36415; 80053; 85025; 86301

== ENCOUNTER 2023-04-13 10:49 | Day surgery (SDC) | payer BC, MEDICAID, SELFPAY ==
[2023-04-12 10:55] VITALS: BMI 19.5
[2023-04-13] VITALS (7 sets, daily range): BP systolic 114–125; BP diastolic 66–87; PULSE 69–87; RESP 12–18; TEMP 36.2–36.8; O2SAT 94–100
--- NOTE | 2023-04-13 10:56 | SC_ITS ---
WS: [id number] C-arm fluoroscopy for insertion of right infusion port, 04/13/2023 Clinical Data: Port-a-cath placement Comparison: None. Findings: Dr. Ricci inserted a right infusion port via the right internal jugular vein. The distal portion of the port ends in the superior vena cava. Impression: Insertion right infusion port.
[2023-04-13] MEDS: sodium chloride 0.9% 1,000 ML 30 ML IV (11:41)
--- NOTE | 2023-04-13 12:04 | W.PM.OPSUD ---
Surgery/Procedure H&P Update DATE OF PROCEDURE: April 13, 2023 DATE H&P PERFORMED: 03/28/23 H&P UPDATE INFORMATION: I have reviewed H&P completed within last 30 days, I have examined patient prior to procedure, No changes to prior documentation and H&P is in [facility] EMR on date indicated PREOP DIAGNOSIS: Need for Port-a-cath PLANNED PROCEDURE: Operation Date: 04/13/23 12:50 Proposed Procedures p [id number] port placement C25.9(Not Applicable) - Mu Ricci MD
[2023-04-13] MEDS: ceFAZolin 2,000 MG in sodium chloride 0.9% (plus) 50 ML 100 MG IV (14:02)
--- NOTE | 2023-04-13 14:12 | ANES.PREANE2 ---
Pre-Anesthetic Assessment Height/Weight: Height 1.91 m Weight 70.76 kg Temp Pulse Resp BP Pulse Ox O2 Del Method 98.3 F 84 18 118/84 94 Room Air 04/13/23 11:15 04/13/23 11:15 04/13/23 11:15 04/13/23 11:15 04/13/23 11:15 04/13/23 11:16 Preop Diagnosis: Need for Port-a-cath Operation Date: 04/13/23 12:50 Proposed Procedures p [id number] port placement C25.9(Not Applicable) - Mu Ricci MD Familial anesthetic complications: none Was Beta Kervin taken within 24 hours: Yes Was Clonidine taken within 24 hours: N/A Last intake: Intake Last Liquid Date 04/12/23 Last Liquid Time 21:00 Last Solid Date 04/12/23 Last Solid Time 18:00 Social No alcohol and No tobacco Exam alert, oriented x 3, clear to auscultation bilaterally and regular rate & rhythm Airway Submandibular: within normal limits Cervical ROM: within normal limits Mallampati: Class II Dentition: false Pulmonary Chronic Obstructive Pulmonary Disease CV/HEM Atrial Fibrillation, Arrythmia and Hypertension Anesthetic Plan ASA status: 3 Anesthesia: MAC Medications/Allergies Home Medications Medication Instructions Recorded Confirmed Last Taken Type apixaban 5 mg tablet (Eliquis) 5 mg PO BID 02/21/20 04/12/23 04/10/23 History metoprolol tartrate 100 mg tablet 100 mg PO BID 10/06/20 04/12/23 04/13/23 History albuterol sulfate 90 mcg/actuation 2 inh inhalation Q4H PRN shortness 11/03/20 04/12/23 Unknown Rx aerosol inhaler of breath or wheezing #6.7 grams hydrochlorothiazide 25 mg tablet 25 ea PO 1XD 03/28/23 04/12/23 04/13/23 History prochlorperazine maleate 10 mg 10 mg PO Q4H PRN Mild Nausea #30 03/29/23 04/12/23 Unknown Rx tablet (Compazine) tabs Allergies Allergy/AdvReac Type Severity Reaction Status Date / Time verapamil Allergy ALGY-Rash Verified 04/12/23 10:53 Current Medications Generic Name Dose Route Start Last Admin Trade Name Freq PRN Reason Stop Dose Admin Sodium Chloride 1,000 mls @ 30 mls/hr 04/13/23 11:00 04/13/23 11:41 Sodium Chloride 0.9% IV 04/14/23 10:59 30 mls/hr .Q24H JOELLEN Administration PFSH Anesthesia Medical History Arthralgia of hip Atrial fibrillation BPH (benign prostatic hyperplasia) Chronic anticoagulation Chronic lung disease Patient reports failed pulmonary function testing in the past for occupational reasons, no formal PFTs documented Hypertension Pancreatic cancer Surgical History History of cholecystectomy History of tonsillectomy and adenoidectomy Family History Father Congestive heart failure Mother Cancer Social History Smoking and tobacco status: never smoked Second hand smoke exposure: Yes Smoking risk assessment/counseling performed?: Yes Alcohol intake: never Substance/Drug Use: never Lives independently: Yes Household members: spouse Housing: House Marital status: service: No Current occupational status: employed Current occupation: works at [employer] currently Previous occupational history: 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
[2023-04-13] MEDS: BUPivacaine 0.25% INJ 30 mL INJECTION (14:24)
[2023-04-13] MEDS: lidocaine-epi 1% 20 mL INJ INJECTION (14:24)
--- NOTE | 2023-04-13 14:41 | ANE.PACU2 ---
Inpatient post-anesthesia follow up: Airway intact: Yes Vital signs: Temperature 98.3 F Pulse Rate 84 Respiratory Rate 18 Blood Pressure 118/84 Pulse Oximetry 94 Oxygen Delivery Me thod Room Air Oxygen Flow Rate Fraction of Inspir ed Oxygen Hydration adequate: Yes Nausea and vomiting: No Pain level: 2 Mental status: Baseline
--- NOTE | 2023-04-13 15:09 | P.OP_ITS ---
Operative Report Date of procedure: April 13, 2023 Pre-op diagnosis: Preop Diagnosis Need for Port-a-cath Post-op diagnosis: Pancreatic cancer Procedure done: Insertion of Right IJ port-a-cath Implants: Bard Port-A-Cath Surgeon: Mu Ricci MD Findings: Normal vascular anatomy, minimal ammount of subcutaneous fat on the anterior chest wall. Brief History: 63 y/o M with pancreatic cancer, who needs chemotherapy. after discussion of the risk and benefits the decision was made to proceed with port-a-cath placement. Procedure: The patient was taken to the operating room and placed supine on the operating room table. All bony prominences were padded. She was given IV sedation and monitored throughout the case by the anesthesia personnel. SCDs were placed and turned on. The arms were tucked to the side. Patient received Ancef 2 g preoperatively IV. The bilateral chest wall and neck was prepped and draped in usual sterile fashion using chlorhexidine base prep. Sterile drapes were applied. We did procedure pause prior to beginning. The right IJ was identified with ultrasound. Local anesthetic was infiltrated. An 18 gauge needle was placed in the right IJ vein with US guidance, this was done on one attempt and the needle tip was seen penetrating the vessel wall. A guidewire was placed through the needle centrally toward the atrial/vena caval junction. Fluoroscopy visualized good placement. The needle was removed and the guidewire was clipped to the drape with a hemostat. Further local anesthetic was infiltrated in the soft tissues of the right chest wall and a #15 blade was used to make a horizontal skin incision. A subcutaneous Mediport pocket was created using Bovie cautery, dissecting down through the skin and subcutaneous tissues. Meticulous hemostasis was achieved. A #15 blade was used to make a small skin compa around the guidewire insertion area. The Mediport tubing was tunneled through the subcutaneous tissues up to the needle insertion location. A dilator with a peel-away sheath was placed over the guidewire and placed centrally. After measuring the Mediport tubing was cut to length so that the tip would end at the atrial/vena caval junction. The inner cannula and the guidewire were removed, leaving the dilator sheath in place. The Mediport was flushed. The tip of the catheter was inserted through the peel-away sheath and the peel-away sheath removed in the standard fashion. The Mediport was accessed with a straight Sewell needle and dark, nonpulsatile blood was aspirated and flushed using heparinized saline to hep-lock the Mediport. Final fluoroscopy vis ualization showed no kink in the catheter and the tip of the Mediport tubing near the atrial/vena caval junction. Meticulous hemostasis noted. The dermis was approximated with 3-0 Vicryl in an interrupted fashion. Skin was closed with 4-0 Monocryl and dermabond. Patient was awakened from anesthesia and transferred via her cart to the recovery room in stable condition. All needle, sponge, and instrument counts were correct per the operating personnel x2 counts.
== END 2023-04-13 15:47 | disposition home or self-care (01) ==
PROVIDERS: PCP Nurse Practitioner Family; Visit Provider Surgery
DX: C25.9 Malignant neoplasm of pancreas, unspecified (principal); J44.9 Chronic obstructive pulmonary disease, unspecified; I48.91 Unspecified atrial fibrillation; I10 Essential (primary) hypertension; N40.0 Benign prostatic hyperplasia without lower urinary tract symptoms
CPT/HCPCS: 36561; 76000; 77001; C1788; J0690; J2704; J3010; J3490; J7030

== ENCOUNTER 2023-04-25 13:30 | Oncology outpatient (recurring) (ONCR) | payer BC, MEDICAID, SELFPAY ==
[2023-04-18 10:12] LABS: Basophils % 0.3 %; Eosinophils # 0.2 10^3/uL (0.0-0.8); Hematocrit 50.3 % (42.0-52.0); Hemoglobin 17.3 g/dL (11.7-16.6); Lymphocytes # 3.3 10^3/uL (0.8-4.8); Lymphocytes % 28.1 %; Mean Corpuscular HGB Conc 34.4 g/dL (30.0-36.0); Mean Corpuscular Volume 84.3 fl (80-94); Monocytes # 1.1 10^3/uL (0.2-0.9); Monocytes % 9.2 %; Neutrophils # 7.03 10^3/uL (1.8-7.7); Nucleated Red Blood Cells % 0 %; Platelet Count 264 10^3/cmm (130-400); Red Blood Count 5.97 10^6/uL (4.1-5.3); Red Cell Distribution Width 11.8 % (12.1-15.1); White Blood Count 11.7 10^3/uL (4.0-10.0)
[2023-04-18 10:32] LABS: Alanine Aminotransferase 44 U/L (0-41); Alkaline Phosphatase 224 U/L (40-130); Aspartate Amino Transferase 29 U/L (0-40); Blood Urea Nitrogen 20 mg/dL (8-23); Calcium 9.3 mg/dL (8.5-10.5); Carbon Dioxide 29 mmol/L (22-29); Chloride 99 mmol/L (98-107); Globulin 2.8 g/dL (1.3-4.6); Glomerular Filtration Rate 97.6 mL/min (90-130); Glucose 300 mg/dL (65-115); Osmolality Calculated 296 mOsm/kg (285-295); Sodium 136 mmol/L (136-145); Total Bilirubin 1.1 mg/dL (0.15-1.2); Total Protein 6.8 g/dL (6.6-8.7)
[2023-04-18] MEDS: dextrose 5% 250 ML 100 ML IV (11:20)
[2023-04-18] MEDS: palonosetron 0.25 mg/5 mL SDV IVP (11:21)
[2023-04-18] MEDS: OXALIPLATIN IV (12:21)
[2023-04-18] MEDS: DEXTROSE 5% IV ×2 (12:21→15:03)
[2023-04-18] MEDS: atropine 1 mg/mL SDV 1 mL 0.4 MG IV (14:43)
[2023-04-18] MEDS: LEUCOVORIN IV (15:03)
[2023-04-18] MEDS: irinotecan 300 MG in dextrose 5% 250 ML 176.67 MG IV (15:03)
[2023-04-20 14:52] VITALS: BP 117/83; PULSE 81; RESP 18; TEMP 36.3; O2SAT 98
[2023-04-25 13:29] VITALS: BP 140/85; PULSE 88; RESP 18; TEMP 36.4; O2SAT 98
[2023-04-25 13:47] LABS: Basophils % 0.3 %; Eosinophils # 0.3 10^3/uL (0.0-0.8); Eosinophils % 3.4 %; Hematocrit 44.5 % (37-53); Lymphocytes # 3.6 10^3/uL (0.8-4.8); Lymphocytes % 44.5 %; Mean Corpuscular HGB Conc 35.7 g/dL (30-55); Mean Corpuscular Hemoglobin 29.9 pg (27-33); Mean Corpuscular Volume 83.8 fl (82-101); Mean Platelet Volume 10.9 fL (7.4-10.4); Monocytes # 0.3 10^3/uL (0.2-0.9); Neutrophils % 47.5 %; Nucleated Red Blood Cells % 0 %; Platelet Count 172 10^3/cmm (157-399); Red Blood Count 5.31 10^6/uL (3.85-5.65); Red Cell Distribution Width 11.3 % (12.1-15.1); White Blood Count 7.98 10^3/uL (3.29-11.43)
[2023-04-25 14:17] LABS: Alanine Aminotransferase 36 U/L (0-41); Alkaline Phosphatase 185 U/L (40-130); Anion Gap 11.1 (5-19); Aspartate Amino Transferase 22 U/L (0-40); Blood Urea Nitrogen 17 mg/dL (8-23); Calcium 8.6 mg/dL (8.5-10.5); Carbon Dioxide 31 mmol/L (22-29); Chloride 95 mmol/L (98-107); Globulin 2.4 g/dL (1.3-4.6); Glomerular Filtration Rate 97.6 mL/min (90-130); Glucose 433 mg/dL (65-115); Osmolality Calculated 296 mOsm/kg (285-295); Potassium 4.1 mmol/L (3.5-5.1); Sodium 133 mmol/L (136-145); Total Bilirubin 0.5 mg/dL (0.15-1.2); Total Protein 6.4 g/dL (6.6-8.7)
== END 2023-04-28 23:59 | disposition home or self-care (01) ==
PROVIDERS: Nurse Practitioner Family; PCP Nurse Practitioner Family; Visit Provider Internal Medicine Medical Oncology
DX: C25.0 Malignant neoplasm of head of pancreas (principal)
CPT/HCPCS: 36591; 80053; 85025; 96367; 96368; 96375; 96413; 96415; 96416; 96417; 96523; J0461; J0640; J1100; J1642; J2469; J7060; J9190; J9206; J9263

== ENCOUNTER 2023-05-26 12:30 | Oncology outpatient (recurring) (ONCR) | payer BC, MEDICAID, SELFPAY ==
[2023-05-03 07:28] VITALS: BMI 20.5
[2023-05-03 07:29] VITALS: BP 123/85; PULSE 105; RESP 18; TEMP 36.3; O2SAT 97
[2023-05-03 07:43] LABS: Basophils % 0.5 %; Eosinophils # 0.3 10^3/uL (0.0-0.8); Eosinophils % 7.4 %; Hematocrit 40.9 % (37-53); Lymphocytes # 2.1 10^3/uL (0.8-4.8); Lymphocytes % 54.2 %; Mean Corpuscular Hemoglobin 29.5 pg (27-33); Mean Corpuscular Volume 84.5 fl (82-101); Monocytes # 0.5 10^3/uL (0.2-0.9); Monocytes % 14.2 %; Neutrophils % 23.4 %; Nucleated Red Blood Cells % 0 %; Platelet Count 167 10^3/cmm (157-399); Red Blood Count 4.84 10^6/uL (3.85-5.65); Red Cell Distribution Width 12.1 % (12.1-15.1)
[2023-05-03 07:52] LABS: Neutrophils # 0.89 10^3/uL (1.8-7.7)
[2023-05-03 08:11] LABS: Alanine Aminotransferase 40 U/L (0-41); Albumin Level 3.4 g/dL (3.5-5.2); Alkaline Phosphatase 190 U/L (40-130); Anion Gap 12.9 (5-19); Aspartate Amino Transferase 31 U/L (0-40); Blood Urea Nitrogen 11 mg/dL (8-23); Calcium 8.4 mg/dL (8.5-10.5); Carbon Dioxide 26 mmol/L (22-29); Chloride 104 mmol/L (98-107); Globulin 2.5 g/dL (1.3-4.6); Glomerular Filtration Rate 113.9 mL/min (90-130); Glucose 440 mg/dL (65-115); Osmolality Calculated 306 mOsm/kg (285-295); Potassium 3.9 mmol/L (3.5-5.1); Sodium 139 mmol/L (136-145); Total Bilirubin 0.3 mg/dL (0.15-1.2); Total Protein 5.9 g/dL (6.6-8.7)
[2023-05-03 08:32] LABS: Cancer Antigen 19 9 2324 U/mL (0-35)
[2023-05-03] MEDS: insulin lispro 100 unit/1 mL 14 UNIT SUBCUT (09:34)
[2023-05-03] MEDS: sodium chloride 0.9% 1,000 ML 999 ML IV (11:20)
[2023-05-03 12:30] VITALS: BP 124/78; PULSE 74; RESP 18; TEMP 36.6; O2SAT 98
--- NOTE | 2023-05-03 16:42 | PC.NURSE ---
Patient came into the infusion suite with the orders for the SQ injection for the insulin since he had a lab draw earlier with 440 . 14 units Insulin was given in right upper arm. Patient waited and blood sugar rechecked with finger stick of 449 with new orders to give Normal Saline 1000ml then repeat the Blood glucose level with was 247 after 20 minutes post hydration. He was given diabetic diet teaching sheets for the observation of carbohydrates and diet teaching.[email or web address]
[2023-05-10 07:26] VITALS: BP 130/93; PULSE 65; RESP 18; TEMP 36.6; O2SAT 98; BMI 20.7
[2023-05-10 07:38] LABS: Basophils % 0.8 %; Eosinophils # 0.3 10^3/uL (0.0-0.8); Eosinophils % 5.1 %; Lymphocytes # 2.5 10^3/uL (0.8-4.8); Lymphocytes % 46.3 %; Mean Corpuscular HGB Conc 34.3 g/dL (30-55); Mean Corpuscular Hemoglobin 29.6 pg (27-33); Mean Corpuscular Volume 86.3 fl (82-101); Mean Platelet Volume 10.1 fL (7.4-10.4); Monocytes # 0.8 10^3/uL (0.2-0.9); Monocytes % 15.6 %; Neutrophils # 1.66 10^3/uL (1.8-7.7); Neutrophils % 31.1 %; Nucleated Red Blood Cells % 0 %; Platelet Count 276 10^3/cmm (157-399); Red Cell Distribution Width 12.9 % (12.1-15.1); White Blood Count 5.33 10^3/uL (3.29-11.43)
[2023-05-10 08:07] LABS: Alanine Aminotransferase 73 U/L (0-41); Albumin Level 3.8 g/dL (3.5-5.2); Alkaline Phosphatase 245 U/L (40-130); Anion Gap 11.4 (5-19); Aspartate Amino Transferase 50 U/L (0-40); Blood Urea Nitrogen 15 mg/dL (8-23); Calcium 8.9 mg/dL (8.5-10.5); Carbon Dioxide 27 mmol/L (22-29); Chloride 102 mmol/L (98-107); Globulin 2.5 g/dL (1.3-4.6); Glomerular Filtration Rate 97.6 mL/min (90-130); Glucose 368 mg/dL (65-115); Osmolality Calculated 298 mOsm/kg (285-295); Potassium 4.4 mmol/L (3.5-5.1); Sodium 136 mmol/L (136-145); Total Bilirubin 0.3 mg/dL (0.15-1.2); Total Protein 6.3 g/dL (6.6-8.7)
[2023-05-10] MEDS: insulin lispro 100 unit/1 mL SUBCUT (09:27)
[2023-05-10] MEDS: dextrose 5% 250 ML 75 ML IV (10:34)
[2023-05-10] MEDS: palonosetron 0.25 mg/5 mL SDV IVP (10:34)
[2023-05-10] MEDS: DEXTROSE 5% IV (11:04)
[2023-05-10] MEDS: OXALIPLATIN IV (11:04)
--- NOTE | 2023-05-10 12:06 | PC.NURSE ---
Patient c/o blood sugar bottoming out. glucose checked at 11:15 with a reading of 55. he was given peaches and eating a sandwich. a few minutes later, his reports he is cold and sweating. glucose checked at 11:42 shows a result of 77.
[2023-05-10] MEDS: sodium chloride 0.9% (100 ml) 100 ML 75 ML (14:46)
[2023-05-10] MEDS: atropine 1 mg/mL SDV 1 mL 0.4 MG IV (16:39)
[2023-05-10] MEDS: FLUOROURACIL IV (16:50)
[2023-05-10] MEDS: SODIUM CHLORIDE IV (16:50)
[2023-05-10] MEDS: ELASTOMERIC PUMP PUMP IV (16:50)
[2023-05-10 16:53] VITALS: BP 167/92; PULSE 98; TEMP 36.3; O2SAT 97
[2023-05-24 07:46] VITALS: BP 139/86; PULSE 94; RESP 16; TEMP 36.5; O2SAT 97
[2023-05-24 08:02] LABS: Basophils % 0.2 %; Eosinophils # 0.2 10^3/uL (0.0-0.8); Eosinophils % 2.9 %; Hematocrit 43.6 % (37-53); Lymphocytes % 36.2 %; Mean Corpuscular HGB Conc 34.4 g/dL (30-55); Mean Corpuscular Hemoglobin 29.3 pg (27-33); Mean Corpuscular Volume 85.2 fl (82-101); Monocytes # 0.6 10^3/uL (0.2-0.9); Monocytes % 11.2 %; Neutrophils # 2.75 10^3/uL (1.8-7.7); Neutrophils % 49.3 %; Nucleated Red Blood Cells % 0 %; Platelet Count 144 10^3/cmm (157-399); Red Blood Count 5.12 10^6/uL (3.85-5.65); Red Cell Distribution Width 13.2 % (12.1-15.1); White Blood Count 5.56 10^3/uL (3.29-11.43)
[2023-05-24 08:34] LABS: Alanine Aminotransferase 59 U/L (0-41); Albumin Level 3.5 g/dL (3.5-5.2); Alkaline Phosphatase 199 U/L (40-130); Anion Gap 11.2 (5-19); Aspartate Amino Transferase 48 U/L (0-40); Blood Urea Nitrogen 11 mg/dL (8-23); Calcium 8.6 mg/dL (8.5-10.5); Carbon Dioxide 29 mmol/L (22-29); Chloride 102 mmol/L (98-107); Globulin 2.9 g/dL (1.3-4.6); Glomerular Filtration Rate 113.9 mL/min (90-130); Glucose 214 mg/dL (65-115); Osmolality Calculated 292 mOsm/kg (285-295); Potassium 4.2 mmol/L (3.5-5.1); Sodium 138 mmol/L (136-145); Total Bilirubin 0.3 mg/dL (0.15-1.2); Total Protein 6.4 g/dL (6.6-8.7)
[2023-05-24 08:54] LABS: Cancer Antigen 19 9 1330 U/mL (0-35)
[2023-05-24] MEDS: dextrose 5% 250 ML 75 ML IV (09:58)
[2023-05-24] MEDS: palonosetron 0.25 mg/5 mL SDV IVP (09:59)
[2023-05-24] MEDS: DEXTROSE 5% IV ×2 (10:35→12:50)
[2023-05-24] MEDS: OXALIPLATIN IV (10:35)
[2023-05-24] MEDS: LEUCOVORIN IV (12:50)
[2023-05-24] MEDS: atropine 1 mg/mL SDV 1 mL 0.4 MG IV (12:51)
[2023-05-24] MEDS: SODIUM CHLORIDE IV (14:30)
[2023-05-24] MEDS: ELASTOMERIC PUMP PUMP IV (14:30)
[2023-05-24] MEDS: FLUOROURACIL IV (14:30)
[2023-05-24 14:53] VITALS: BP 145/98; PULSE 87; TEMP 36.9; O2SAT 99
[2023-05-26 12:28] VITALS: BP 134/89; PULSE 48
== END 2023-05-28 23:59 | disposition home or self-care (01) ==
PROVIDERS: Nurse Practitioner Family; PCP Nurse Practitioner Family; Visit Provider Internal Medicine Medical Oncology
DX: Z45.1 Encounter for adjustment and management of infusion pump (principal)
CPT/HCPCS: 80053; 85025; 86301; 96360; 96367; 96368; 96372; 96375; 96413; 96415; 96416; 96417; 96523; J0461; J0640; J1100; J1642; J1815; J2469; J7030; J7050; J7060; J9190; J9206; J9263

== ENCOUNTER → 2023-06-11 09:15 | Day surgery (SDC) | payer BC, MEDICAID, SELFPAY ==
[2023-06-11] MEDS: filgrastim-sndz 480 mcg/0.8 mL Syringe SUBCUT (09:51)
[2023-06-11 09:58] VITALS: BP 135/99; PULSE 86; RESP 18; TEMP 36.5; O2SAT 99
== END ==
PROVIDERS: PCP Nurse Practitioner Family; Visit Provider Nurse Practitioner Family
DX: D70.1 Agranulocytosis secondary to cancer chemotherapy (principal); T45.1X5A Adverse effect of antineoplastic and immunosuppressive drugs, initial encounter; C25.9 Malignant neoplasm of pancreas, unspecified
CPT/HCPCS: 96372; Q5101

== ENCOUNTER 2023-06-28 08:00 | Oncology outpatient (recurring) (ONCR) | payer BC, MEDICAID, SELFPAY ==
[2023-06-07 07:51] VITALS: BP 113/74; PULSE 86; RESP 16; TEMP 36.3; O2SAT 98
[2023-06-07 08:06] LABS: Basophils % 0.4 %; Eosinophils # 0.1 10^3/uL (0.0-0.8); Eosinophils % 1.9 %; Hematocrit 45.3 % (37-53); Lymphocytes # 2.4 10^3/uL (0.8-4.8); Lymphocytes % 50.7 %; Mean Corpuscular HGB Conc 34.2 g/dL (30-55); Mean Corpuscular Hemoglobin 29.3 pg (27-33); Mean Corpuscular Volume 85.6 fl (82-101); Mean Platelet Volume 10.5 fL (7.4-10.4); Monocytes # 0.8 10^3/uL (0.2-0.9); Monocytes % 16.3 %; Neutrophils # 1.46 10^3/uL (1.8-7.7); Neutrophils % 30.5 %; Nucleated Red Blood Cells % 0 %; Platelet Count 114 10^3/cmm (157-399); Red Blood Count 5.29 10^6/uL (3.85-5.65); Red Cell Distribution Width 13.4 % (12.1-15.1); White Blood Count 4.79 10^3/uL (3.29-11.43)
[2023-06-07 08:48] LABS: Alanine Aminotransferase 73 U/L (0-41); Albumin Level 3.7 g/dL (3.5-5.2); Alkaline Phosphatase 215 U/L (40-130); Aspartate Amino Transferase 46 U/L (0-40); Blood Urea Nitrogen 14 mg/dL (8-23); Calcium 8.5 mg/dL (8.5-10.5); Carbon Dioxide 27 mmol/L (22-29); Chloride 103 mmol/L (98-107); Globulin 2.7 g/dL (1.3-4.6); Glomerular Filtration Rate 97.6 mL/min (90-130); Glucose 207 mg/dL (65-115); Osmolality Calculated 293 mOsm/kg (285-295); Sodium 138 mmol/L (136-145); Total Bilirubin 0.4 mg/dL (0.15-1.2); Total Protein 6.4 g/dL (6.6-8.7)
[2023-06-07 09:08] LABS: Cancer Antigen 19 9 1121 U/mL (0-35)
[2023-06-07] MEDS: dextrose 5% 250 ML 75 ML IV (10:09)
[2023-06-07] MEDS: atropine 1 mg/mL SDV 1 mL 0.4 MG IV (10:10)
[2023-06-07] MEDS: palonosetron 0.25 mg/5 mL SDV IVP (10:13)
[2023-06-07] MEDS: irinotecan 300 MG in dextrose 5% 250 ML 176.6 MG IV (10:58)
[2023-06-07] MEDS: OXALIPLATIN IV (12:46)
[2023-06-07] MEDS: DEXTROSE 5% IV ×2 (12:46)
[2023-06-07] MEDS: LEUCOVORIN IV (12:46)
[2023-06-07] MEDS: ELASTOMERIC PUMP PUMP IV (15:06)
[2023-06-07] MEDS: SODIUM CHLORIDE IV (15:06)
[2023-06-07] MEDS: FLUOROURACIL IV (15:06)
[2023-06-07 15:10] VITALS: BP 124/79; PULSE 74; RESP 18; TEMP 36.4; O2SAT 98
[2023-06-09 15:05] VITALS: BP 130/89; PULSE 94; RESP 17; TEMP 36.4; O2SAT 96
[2023-06-10] MEDS: filgrastim-sndz 480 mcg/0.8 mL Syringe SUBCUT (09:52)
[2023-06-10 09:57] VITALS: BP 135/95; PULSE 85; RESP 17; TEMP 35.9; O2SAT 97
[2023-06-21 09:11] VITALS: BP 120/86; PULSE 90; RESP 16; TEMP 36.4; O2SAT 96
[2023-06-21 09:25] LABS: Basophils % 0.5 %; Eosinophils # 0.1 10^3/uL (0.0-0.8); Eosinophils % 3.4 %; Hematocrit 42.8 % (37-53); Lymphocytes # 2.4 10^3/uL (0.8-4.8); Lymphocytes % 58.3 %; Mean Corpuscular HGB Conc 35.3 g/dL (30-55); Mean Corpuscular Hemoglobin 29.4 pg (27-33); Mean Corpuscular Volume 83.4 fl (82-101); Mean Platelet Volume 10.3 fL (7.4-10.4); Monocytes # 0.7 10^3/uL (0.2-0.9); Monocytes % 16.6 %; Neutrophils % 20.2 %; Nucleated Red Blood Cells % 0 %; Platelet Count 112 10^3/cmm (157-399); Red Blood Count 5.13 10^6/uL (3.85-5.65); Red Cell Distribution Width 14.2 % (12.1-15.1)
[2023-06-21 09:37] LABS: Neutrophils # 0.83 10^3/uL (1.8-7.7)
[2023-06-21 09:52] LABS: Alanine Aminotransferase 58 U/L (0-41); Albumin Level 3.5 g/dL (3.5-5.2); Alkaline Phosphatase 257 U/L (40-130); Aspartate Amino Transferase 49 U/L (0-40); Blood Urea Nitrogen 15 mg/dL (8-23); Cancer Antigen 19 9 812.4 U/mL (0-35); Carbon Dioxide 26 mmol/L (22-29); Chloride 103 mmol/L (98-107); Globulin 3.1 g/dL (1.3-4.6); Glomerular Filtration Rate 97.6 mL/min (90-130); Glucose 296 mg/dL (65-115); Osmolality Calculated 298 mOsm/kg (285-295); Sodium 138 mmol/L (136-145); Total Bilirubin 0.4 mg/dL (0.15-1.2); Total Protein 6.6 g/dL (6.6-8.7)
[2023-06-21] MEDS: filgrastim-sndz 480 mcg/0.8 mL Syringe SUBCUT (11:39)
[2023-06-22 12:45] VITALS: BP 121/81; PULSE 85; RESP 16; TEMP 36.8; O2SAT 99; BMI 19.9
[2023-06-22] MEDS: filgrastim-sndz 480 mcg/0.8 mL Syringe SUBCUT (12:46)
[2023-06-23 13:00] VITALS: BP 112/78; PULSE 74; RESP 18; TEMP 36.6; O2SAT 98
[2023-06-23 13:27] LABS: Basophils # 0.1 10^3/uL (0.0-0.1); Basophils % 0.5 %; Eosinophils # 0.2 10^3/uL (0.0-0.8); Eosinophils % 0.7 %; Hematocrit 42.8 % (37-53); Lymphocytes # 3.8 10^3/uL (0.8-4.8); Mean Corpuscular HGB Conc 34.8 g/dL (30-55); Mean Corpuscular Hemoglobin 29.9 pg (27-33); Mean Corpuscular Volume 85.8 fl (82-101); Mean Platelet Volume 10.3 fL (7.4-10.4); Monocytes % 14.2 %; Neutrophils # 10.75 10^3/uL (1.8-7.7); Nucleated Red Blood Cells % 0.2 %; Platelet Count 157 10^3/cmm (157-399); Red Blood Count 4.99 10^6/uL (3.85-5.65); Red Cell Distribution Width 15.4 % (12.1-15.1); White Blood Count 20.92 10^3/uL (3.29-11.43)
[2023-06-23 14:05] LABS: Neutrophils % 66.6 %
[2023-06-23 14:06] LABS: Slide Review Slide Review Perform
--- NOTE | 2023-06-23 15:58 | PC.NURSE ---
Lisandra Kimble FURNITURE CRATER reviewed;labs show no need for the zarxio with the patient aware.mm
[2023-06-28 08:09] VITALS: BP 111/75; PULSE 75; RESP 16; TEMP 36.4; O2SAT 96
[2023-06-28 08:15] LABS: Hematocrit 43.3 % (37-53); Mean Corpuscular HGB Conc 34.6 g/dL (30-55); Mean Corpuscular Hemoglobin 29.5 pg (27-33); Mean Corpuscular Volume 85.1 fl (82-101); Mean Platelet Volume 10.1 fL (7.4-10.4); Platelet Count 254 10^3/cmm (157-399); Red Blood Count 5.09 10^6/uL (3.85-5.65); Red Cell Distribution Width 15.3 % (12.1-15.1); White Blood Count 6.89 10^3/uL (3.29-11.43)
[2023-06-28 08:38] LABS: Alanine Aminotransferase 71 U/L (0-41); Albumin Level 3.7 g/dL (3.5-5.2); Alkaline Phosphatase 282 U/L (40-130); Anion Gap 10.8 (5-19); Aspartate Amino Transferase 66 U/L (0-40); Blood Urea Nitrogen 15 mg/dL (8-23); Calcium 8.9 mg/dL (8.5-10.5); Carbon Dioxide 30 mmol/L (22-29); Chloride 103 mmol/L (98-107); Globulin 2.8 g/dL (1.3-4.6); Glomerular Filtration Rate 97.6 mL/min (90-130); Glucose 139 mg/dL (65-115); Osmolality Calculated 293 mOsm/kg (285-295); Potassium 3.8 mmol/L (3.5-5.1); Sodium 140 mmol/L (136-145); Total Bilirubin 0.5 mg/dL (0.15-1.2); Total Protein 6.5 g/dL (6.6-8.7)
[2023-06-28 09:42] LABS: Slide Review Slide Review Perform
[2023-06-28 09:43] LABS: Absolute Eosinophils 0.1 10^3/cmm (0.0-0.7); Band Neutrophils Absolute 0.1 10^3/cmm (0.0-1.2); Eosinophils 1 %; Lymphocytes 34 %; Monocytes Absolute 1.1 10^3/cmm (0.1-0.6); Segmented Neutrophils 29 %; Total Cells Counted 100 (0-100)
[2023-06-28 09:44] LABS: Absolute Neutrophil 2.1 10^3/cmm (1.4-6.5); Anisocytosis 2+; Giant Platelets Trace; Lymphocytes Absolute 3.4 10^3/cmm (1.2-3.4); Platelet Estimate Normal (Normal)
[2023-06-28] MEDS: dextrose 5% 250 ML 75 ML IV (11:05)
[2023-06-28] MEDS: palonosetron 0.25 mg/5 mL SDV IVP (11:05)
[2023-06-28] MEDS: atropine 1 mg/mL SDV 1 mL 0.4 MG IV (11:38)
[2023-06-28] MEDS: irinotecan 300 MG in dextrose 5% 250 ML 176.67 MG IV (11:49)
[2023-06-28] MEDS: DEXTROSE 5% IV ×2 (13:50→13:52)
[2023-06-28] MEDS: LEUCOVORIN IV (13:50)
[2023-06-28] MEDS: OXALIPLATIN IV (13:52)
[2023-06-28] MEDS: sodium chloride 0.9% (100 ml) 100 ML 35 ML (15:37)
[2023-06-28] MEDS: LORazepam 2 mg/mL INJ 1 mL 0.25 MG IVP (15:46)
[2023-06-28] MEDS: FLUOROURACIL IV (16:15)
[2023-06-28] MEDS: ELASTOMERIC PUMP PUMP IV (16:15)
[2023-06-28] MEDS: SODIUM CHLORIDE IV (16:15)
[2023-06-28 16:30] VITALS: BP 119/71; PULSE 91; RESP 18; TEMP 36.1; O2SAT 98
== END 2023-06-28 23:59 | disposition home or self-care (01) ==
PROVIDERS: Nurse Practitioner Family; PCP Nurse Practitioner Family; Visit Provider Internal Medicine Medical Oncology
DX: C25.9 Malignant neoplasm of pancreas, unspecified (principal); D70.9 Neutropenia, unspecified; I48.91 Unspecified atrial fibrillation; Z79.899 Other long term (current) drug therapy; Z51.11 Encounter for antineoplastic chemotherapy
CPT/HCPCS: 36415; 80053; 85007; 85025; 86301; 96365; 96366; 96367; 96368; 96372; 96375; 96413; 96415; 96416; 96417; 96523; J0461; J0640; J1100; J1642; J2060; J2469; J7060; J9190; J9206; J9263; Q5101

== ENCOUNTER 2023-07-14 13:00 | Oncology outpatient (recurring) (ONCR) | payer BC, MEDICAID, SELFPAY ==
[2023-06-30] MEDS: pegfilgrastim 6 mg/0.6 mL Kit (onpro) SUBCUT (14:43)
[2023-06-30 15:42] VITALS: BP 117/74; PULSE 81; RESP 17; TEMP 37.2; O2SAT 98
[2023-07-12 08:32] VITALS: BP 114/74; PULSE 81; RESP 16; TEMP 36.8; O2SAT 98
[2023-07-12 08:47] LABS: Basophils # 0.1 10^3/uL (0.0-0.1); Basophils % 0.5 %; Eosinophils # 0.2 10^3/uL (0.0-0.8); Eosinophils % 1.2 %; Hematocrit 44.8 % (37-53); Lymphocytes # 2.3 10^3/uL (0.8-4.8); Lymphocytes % 16.6 %; Mean Corpuscular HGB Conc 33.7 g/dL (30-55); Mean Corpuscular Hemoglobin 29.8 pg (27-33); Mean Corpuscular Volume 88.5 fl (82-101); Mean Platelet Volume 10.4 fL (7.4-10.4); Monocytes # 1.6 10^3/uL (0.2-0.9); Monocytes % 11.1 %; Neutrophils % 66.4 %; Nucleated Red Blood Cells % 0.3 %; Platelet Count 153 10^3/cmm (157-399); Red Blood Count 5.06 10^6/uL (3.85-5.65); Red Cell Distribution Width 16.3 % (12.1-15.1)
[2023-07-12 09:06] LABS: Alanine Aminotransferase 83 U/L (0-41); Albumin Level 3.9 g/dL (3.5-5.2); Alkaline Phosphatase 327 U/L (40-130); Anion Gap 12.4 (5-19); Aspartate Amino Transferase 91 U/L (0-40); Blood Urea Nitrogen 16 mg/dL (8-23); Calcium 9.2 mg/dL (8.5-10.5); Carbon Dioxide 27 mmol/L (22-29); Chloride 105 mmol/L (98-107); Glomerular Filtration Rate 97.6 mL/min (90-130); Glucose 305 mg/dL (65-115); Osmolality Calculated 303 mOsm/kg (285-295); Potassium 4.4 mmol/L (3.5-5.1); Sodium 140 mmol/L (136-145); Total Bilirubin 0.4 mg/dL (0.15-1.2); Total Protein 6.9 g/dL (6.6-8.7)
[2023-07-12 09:29] LABS: Cancer Antigen 19 9 630.3 U/mL (0-35)
[2023-07-12] MEDS: dextrose 5% 250 ML 75 ML IV (10:30)
[2023-07-12] MEDS: palonosetron 0.25 mg/5 mL SDV IVP (10:32)
[2023-07-12] MEDS: OLANZapine 5 mg TABLET PO (10:32)
[2023-07-12] MEDS: fosaprepitant 150 MG in sodium chloride 0.9% 50 ML, sodium chloride 0.9% (100 ml) 100 ML 300 MG IV (10:35)
[2023-07-12] MEDS: atropine 1 mg/mL SDV 1 mL 0.4 MG IV (11:08)
[2023-07-12] MEDS: irinotecan 300 MG in dextrose 5% 250 ML 176.67 MG IV (11:37)
[2023-07-12] MEDS: OXALIPLATIN IV (13:10)
[2023-07-12] MEDS: DEXTROSE 5% IV ×2 (13:10→13:11)
[2023-07-12] MEDS: LEUCOVORIN IV (13:11)
[2023-07-12] MEDS: FLUOROURACIL IV (15:50)
[2023-07-12] MEDS: ELASTOMERIC PUMP PUMP IV (15:50)
[2023-07-12] MEDS: SODIUM CHLORIDE IV (15:50)
[2023-07-12 16:01] VITALS: BP 113/71; PULSE 72; TEMP 36.4; O2SAT 97
[2023-07-14] MEDS: pegfilgrastim 6 mg/0.6 mL Kit (onpro) SUBCUT (12:47)
[2023-07-14 12:52] VITALS: BP 126/80; PULSE 68; TEMP 36.5; O2SAT 99
== END 2023-07-14 23:59 | disposition home or self-care (01) ==
PROVIDERS: PCP Nurse Practitioner Family; Visit Provider Internal Medicine Medical Oncology
DX: D70.1 Agranulocytosis secondary to cancer chemotherapy; T45.1X5A Adverse effect of antineoplastic and immunosuppressive drugs, initial encounter
CPT/HCPCS: 80053; 85025; 86301; 96367; 96368; 96375; 96377; 96413; 96415; 96416; 96417; 96523; J0461; J0640; J1100; J1453; J1642; J2469; J2506; J7060; J9190; J9206; J9263

== ENCOUNTER 2023-07-28 14:30 | Oncology outpatient (recurring) (ONCR) | payer BC, MEDICAID, SELFPAY ==
[2023-07-26 08:30] VITALS: BMI 19.8
[2023-07-26 08:31] VITALS: BP 134/82; PULSE 65; RESP 17; TEMP 36.8; O2SAT 98
[2023-07-26 08:58] LABS: Basophils # 0.1 10^3/uL (0.0-0.1); Basophils % 0.6 %; Eosinophils # 0.1 10^3/uL (0.0-0.8); Eosinophils % 1.1 %; Hematocrit 39.9 % (37-53); Lymphocytes # 2.6 10^3/uL (0.8-4.8); Lymphocytes % 20.5 %; Mean Corpuscular HGB Conc 33.6 g/dL (30-55); Mean Corpuscular Hemoglobin 30.1 pg (27-33); Mean Corpuscular Volume 89.7 fl (82-101); Mean Platelet Volume 10.2 fL (7.4-10.4); Monocytes # 1.5 10^3/uL (0.2-0.9); Monocytes % 12.2 %; Neutrophils # 7.66 10^3/uL (1.8-7.7); Neutrophils % 60.8 %; Nucleated Red Blood Cells % 0.2 %; Platelet Count 151 10^3/cmm (157-399); Red Blood Count 4.45 10^6/uL (3.85-5.65); Red Cell Distribution Width 16.6 % (12.1-15.1)
[2023-07-26 09:35] LABS: Alanine Aminotransferase 50 U/L (0-41); Albumin Level 3.7 g/dL (3.5-5.2); Alkaline Phosphatase 431 U/L (40-130); Anion Gap 13.5 (5-19); Aspartate Amino Transferase 53 U/L (0-40); Blood Urea Nitrogen 17 mg/dL (8-23); Calcium 8.5 mg/dL (8.5-10.5); Cancer Antigen 19 9 415.6 U/mL (0-35); Carbon Dioxide 26 mmol/L (22-29); Chloride 106 mmol/L (98-107); Globulin 2.5 g/dL (1.3-4.6); Glomerular Filtration Rate 97.6 mL/min (90-130); Glucose 221 mg/dL (65-115); Osmolality Calculated 302 mOsm/kg (285-295); Potassium 3.5 mmol/L (3.5-5.1); Sodium 142 mmol/L (136-145); Total Bilirubin 0.5 mg/dL (0.15-1.2); Total Protein 6.2 g/dL (6.6-8.7)
[2023-07-26] MEDS: dextrose 5% 250 ML 75 ML IV (11:21)
[2023-07-26] MEDS: fosaprepitant 150 MG in sodium chloride 0.9% 50 ML, sodium chloride 0.9% (100 ml) 100 ML 300 MG IV (11:30)
[2023-07-26] MEDS: OLANZapine 5 mg TABLET PO (11:32)
[2023-07-26] MEDS: palonosetron 0.25 mg/5 mL SDV IVP (12:13)
[2023-07-26] MEDS: OXALIPLATIN IV (12:38)
[2023-07-26] MEDS: DEXTROSE 5% IV ×2 (12:38→14:50)
[2023-07-26] MEDS: atropine 1 mg/mL SDV 1 mL 0.4 MG IV (14:49)
[2023-07-26] MEDS: LEUCOVORIN IV (14:50)
[2023-07-26] MEDS: irinotecan 300 MG in dextrose 5% 250 ML 176.67 MG IV (14:57)
[2023-07-26] MEDS: FLUOROURACIL IV (16:28)
[2023-07-26] MEDS: ELASTOMERIC PUMP PUMP IV (16:28)
[2023-07-26] MEDS: SODIUM CHLORIDE IV (16:28)
[2023-07-26 16:35] VITALS: BP 119/76; PULSE 87; TEMP 36.1; O2SAT 98
[2023-07-28 13:48] VITALS: BP 127/72; PULSE 62; RESP 17; TEMP 36.6; O2SAT 100
== END 2023-07-28 23:59 | disposition home or self-care (01) ==
PROVIDERS: PCP Nurse Practitioner Family; Visit Provider Nurse Practitioner Family
DX: Z45.1 Encounter for adjustment and management of infusion pump
CPT/HCPCS: 80053; 85025; 86301; 96367; 96368; 96375; 96413; 96415; 96416; 96417; 96523; J0461; J0640; J1100; J1453; J1642; J2469; J7060; J9190; J9206; J9263

== ENCOUNTER 2023-08-25 13:30 | Oncology outpatient (recurring) (ONCR) | payer BC, MEDICAID, SELFPAY ==
[2023-08-09 09:04] VITALS: BP 118/70; PULSE 93; RESP 17; TEMP 36.7; O2SAT 99
[2023-08-09 09:06] VITALS: BMI 19.8
[2023-08-09 09:34] LABS: Basophils % 0.9 %; Eosinophils # 0.1 10^3/uL (0.0-0.8); Eosinophils % 2.3 %; Hematocrit 34.9 % (37-53); Lymphocytes # 2.1 10^3/uL (0.8-4.8); Lymphocytes % 47.3 %; Mean Corpuscular Hemoglobin 30.3 pg (27-33); Mean Corpuscular Volume 92.1 fl (82-101); Mean Platelet Volume 9.6 fL (7.4-10.4); Monocytes # 0.8 10^3/uL (0.2-0.9); Monocytes % 18.1 %; Neutrophils # 1.38 10^3/uL (1.8-7.7); Neutrophils % 31.2 %; Nucleated Red Blood Cells % 0 %; Platelet Count 246 10^3/cmm (157-399); Red Blood Count 3.79 10^6/uL (3.85-5.65); Red Cell Distribution Width 15.1 % (12.1-15.1); White Blood Count 4.42 10^3/uL (3.29-11.43)
[2023-08-09 09:56] LABS: Alanine Aminotransferase 39 U/L (0-41); Albumin Level 3.6 g/dL (3.5-5.2); Alkaline Phosphatase 262 U/L (40-130); Anion Gap 10.7 (5-19); Aspartate Amino Transferase 32 U/L (0-40); Blood Urea Nitrogen 12 mg/dL (8-23); Calcium 8.8 mg/dL (8.5-10.5); Cancer Antigen 19 9 150.1 U/mL (0-35); Carbon Dioxide 28 mmol/L (22-29); Chloride 107 mmol/L (98-107); Globulin 2.9 g/dL (1.3-4.6); Glomerular Filtration Rate 113.9 mL/min (90-130); Glucose 107 mg/dL (65-115); Osmolality Calculated 294 mOsm/kg (285-295); Potassium 3.7 mmol/L (3.5-5.1); Sodium 142 mmol/L (136-145); Total Bilirubin 0.4 mg/dL (0.15-1.2); Total Protein 6.5 g/dL (6.6-8.7)
[2023-08-09] MEDS: dextrose 5% 250 ML 75 ML IV (11:55)
[2023-08-09] MEDS: OLANZapine 5 mg TABLET PO (11:56)
[2023-08-09] MEDS: fosaprepitant 150 MG in sodium chloride 0.9% 50 ML, sodium chloride 0.9% (100 ml) 100 ML 300 MG IV (11:57)
[2023-08-09] MEDS: palonosetron 0.25 mg/5 mL SDV IVP (11:58)
[2023-08-09] MEDS: atropine 1 mg/mL SDV 1 mL 0.4 MG IV (13:19)
[2023-08-09] MEDS: irinotecan 300 MG in dextrose 5% 250 ML 176.67 MG IV (13:22)
[2023-08-09] MEDS: LEUCOVORIN IV (14:55)
[2023-08-09] MEDS: DEXTROSE 5% IV ×2 (14:55)
[2023-08-09] MEDS: OXALIPLATIN IV (14:55)
[2023-08-09 17:09] VITALS: BP 110/67; PULSE 88; RESP 16; TEMP 36.7; O2SAT 98
[2023-08-23 08:46] VITALS: BP 121/81; PULSE 80; RESP 16; TEMP 36.6; O2SAT 97; BMI 19.5
[2023-08-23 09:14] LABS: Basophils % 0.6 %; Eosinophils # 0.1 10^3/uL (0.0-0.8); Eosinophils % 1.7 %; Hematocrit 39.9 % (37-53); Lymphocytes # 2.1 10^3/uL (0.8-4.8); Mean Corpuscular HGB Conc 32.6 g/dL (30-55); Mean Corpuscular Hemoglobin 30.4 pg (27-33); Mean Corpuscular Volume 93.4 fl (82-101); Mean Platelet Volume 9.6 fL (7.4-10.4); Monocytes # 0.7 10^3/uL (0.2-0.9); Monocytes % 12.4 %; Neutrophils # 2.54 10^3/uL (1.8-7.7); Neutrophils % 46.9 %; Nucleated Red Blood Cells % 0 %; Platelet Count 174 10^3/cmm (157-399); Red Blood Count 4.27 10^6/uL (3.85-5.65)
[2023-08-23 09:55] LABS: Alanine Aminotransferase 42 U/L (0-41); Albumin Level 3.8 g/dL (3.5-5.2); Alkaline Phosphatase 255 U/L (40-130); Aspartate Amino Transferase 39 U/L (0-40); Blood Urea Nitrogen 17 mg/dL (8-23); Cancer Antigen 19 9 189.2 U/mL (0-35); Carbon Dioxide 25 mmol/L (22-29); Chloride 107 mmol/L (98-107); Glomerular Filtration Rate 97.6 mL/min (90-130); Glucose 202 mg/dL (65-115); Osmolality Calculated 297 mOsm/kg (285-295); Sodium 140 mmol/L (136-145); Total Bilirubin 0.4 mg/dL (0.15-1.2); Total Protein 6.8 g/dL (6.6-8.7)
[2023-08-23] MEDS: dextrose 5% 250 ML 75 ML IV (11:39)
[2023-08-23] MEDS: palonosetron 0.25 mg/5 mL SDV IVP (11:41)
[2023-08-23] MEDS: OLANZapine 5 mg TABLET PO (11:42)
[2023-08-23] MEDS: fosaprepitant 150 MG in sodium chloride 0.9% 50 ML, sodium chloride 0.9% (100 ml) 100 ML 300 MG IV (11:47)
[2023-08-23] MEDS: atropine 1 mg/mL SDV 1 mL 0.4 MG IV (12:51)
[2023-08-23] MEDS: DEXTROSE 5% IV (15:04)
[2023-08-23] MEDS: OXALIPLATIN IV (15:04)
[2023-08-23] MEDS: ELASTOMERIC PUMP PUMP IV (16:56)
[2023-08-23] MEDS: FLUOROURACIL IV (16:56)
[2023-08-23] MEDS: SODIUM CHLORIDE IV (16:56)
[2023-08-23 17:00] VITALS: BP 118/77; PULSE 62; RESP 17; TEMP 35.9; O2SAT 98
[2023-08-25 14:32] VITALS: BP 137/89; PULSE 96; RESP 16; TEMP 36.3; O2SAT 99
== END 2023-08-28 23:59 | disposition home or self-care (01) ==
PROVIDERS: Internal Medicine; PCP Nurse Practitioner Family; Visit Provider Nurse Practitioner Family
DX: Z45.1 Encounter for adjustment and management of infusion pump (principal); Z53.9 Procedure and treatment not carried out, unspecified reason
CPT/HCPCS: 80053; 85025; 86301; 96365; 96366; 96367; 96368; 96375; 96411; 96413; 96415; 96416; 96417; 96523; J0461; J0640; J1100; J1453; J1642; J2469; J7060; J9190; J9206; J9263

== ENCOUNTER 2023-09-26 10:30 | Oncology outpatient (recurring) (ONCR) | payer BC, MEDICAID, SELFPAY ==
[2023-09-14 07:46] VITALS: BP 128/85; PULSE 71; RESP 16; TEMP 36.4; O2SAT 96
[2023-09-14 08:03] LABS: Basophils % 0.6 %; Eosinophils # 0.2 10^3/uL (0.0-0.8); Eosinophils % 3.8 %; Hematocrit 41.1 % (37-53); Lymphocytes # 2.8 10^3/uL (0.8-4.8); Lymphocytes % 52.5 %; Mean Corpuscular HGB Conc 32.8 g/dL (30-55); Mean Corpuscular Hemoglobin 30.9 pg (27-33); Mean Corpuscular Volume 94.1 fl (82-101); Mean Platelet Volume 9.7 fL (7.4-10.4); Monocytes # 0.9 10^3/uL (0.2-0.9); Monocytes % 16.2 %; Neutrophils # 1.41 10^3/uL (1.8-7.7); Neutrophils % 26.7 %; Nucleated Red Blood Cells % 0 %; Platelet Count 267 10^3/cmm (157-399); Red Blood Count 4.37 10^6/uL (3.85-5.65); Red Cell Distribution Width 14.4 % (12.1-15.1); White Blood Count 5.26 10^3/uL (3.29-11.43)
[2023-09-14 08:38] LABS: Alanine Aminotransferase 67 U/L (0-41); Albumin Level 3.7 g/dL (3.5-5.2); Alkaline Phosphatase 284 U/L (40-130); Anion Gap 12.2 (5-19); Aspartate Amino Transferase 75 U/L (0-40); Blood Urea Nitrogen 13 mg/dL (8-23); Calcium 9.1 mg/dL (8.5-10.5); Cancer Antigen 19 9 142.2 U/mL (0-35); Carbon Dioxide 27 mmol/L (22-29); Chloride 107 mmol/L (98-107); Glomerular Filtration Rate 97.6 mL/min (90-130); Glucose 61 mg/dL (65-115); Osmolality Calculated 292 mOsm/kg (285-295); Potassium 4.2 mmol/L (3.5-5.1); Sodium 142 mmol/L (136-145); Total Bilirubin 0.3 mg/dL (0.15-1.2); Total Protein 6.7 g/dL (6.6-8.7)
[2023-09-14] MEDS: filgrastim-sndz 480 mcg/0.8 mL Syringe SUBCUT (09:25)
[2023-09-21 08:42] VITALS: BP 112/74; PULSE 82; RESP 16; TEMP 36.8; O2SAT 98
[2023-09-21 08:54] LABS: Basophils % 0.6 %; Eosinophils # 0.2 10^3/uL (0.0-0.8); Lymphocytes # 2.5 10^3/uL (0.8-4.8); Lymphocytes % 38.6 %; Mean Corpuscular Hemoglobin 31.4 pg (27-33); Mean Corpuscular Volume 92.3 fl (82-101); Mean Platelet Volume 10.2 fL (7.4-10.4); Monocytes # 0.9 10^3/uL (0.2-0.9); Monocytes % 13.7 %; Neutrophils # 2.77 10^3/uL (1.8-7.7); Neutrophils % 43.8 %; Nucleated Red Blood Cells % 0 %; Platelet Count 203 10^3/cmm (157-399); Red Blood Count 4.55 10^6/uL (3.85-5.65); Red Cell Distribution Width 13.6 % (12.1-15.1); White Blood Count 6.34 10^3/uL (3.29-11.43)
[2023-09-21 09:11] LABS: Alanine Aminotransferase 51 U/L (0-41); Albumin Level 3.7 g/dL (3.5-5.2); Alkaline Phosphatase 275 U/L (40-130); Anion Gap 14.2 (5-19); Aspartate Amino Transferase 71 U/L (0-40); Blood Urea Nitrogen 13 mg/dL (8-23); Carbon Dioxide 25 mmol/L (22-29); Chloride 105 mmol/L (98-107); Globulin 2.9 g/dL (1.3-4.6); Glomerular Filtration Rate 113.9 mL/min (90-130); Glucose 150 mg/dL (65-115); Osmolality Calculated 293 mOsm/kg (285-295); Potassium 4.2 mmol/L (3.5-5.1); Sodium 140 mmol/L (136-145); Total Bilirubin 0.5 mg/dL (0.15-1.2); Total Protein 6.6 g/dL (6.6-8.7)
[2023-09-21 11:00] VITALS: BMI 19.8
[2023-09-21] MEDS: OLANZapine 5 mg TABLET PO (11:20)
[2023-09-21] MEDS: sodium chloride 0.9% (100 ml) 100 ML 75 ML (11:21)
[2023-09-21] MEDS: palonosetron 0.25 mg/5 mL SDV IVP (11:25)
[2023-09-21] MEDS: fosaprepitant 150 MG in sodium chloride 0.9% 50 ML, sodium chloride 0.9% (100 ml) 100 ML 300 MG IV (11:56)
[2023-09-21] MEDS: dextrose 5% 250 ML 75 ML IV (13:02)
[2023-09-21] MEDS: atropine 1 mg/mL SDV 1 mL 0.4 MG IV (13:03)
[2023-09-21] MEDS: irinotecan 300 MG in dextrose 5% 250 ML 176.67 MG IV (13:09)
[2023-09-21] MEDS: DEXTROSE 5% IV ×2 (15:15→15:16)
[2023-09-21] MEDS: LEUCOVORIN IV (15:15)
[2023-09-21] MEDS: OXALIPLATIN IV (15:16)
[2023-09-21] MEDS: ELASTOMERIC PUMP PUMP IV (17:21)
[2023-09-21] MEDS: SODIUM CHLORIDE IV (17:21)
[2023-09-21] MEDS: FLUOROURACIL IV (17:21)
[2023-09-21 17:45] VITALS: BP 190/79; PULSE 100; RESP 18; TEMP 36.6; O2SAT 97
[2023-09-26 10:54] VITALS: BP 148/100; PULSE 66; RESP 16; TEMP 36.6; O2SAT 93
== END 2023-09-28 23:59 | disposition home or self-care (01) ==
PROVIDERS: Internal Medicine Medical Oncology; PCP Nurse Practitioner Family; Visit Provider Nurse Practitioner Family
DX: Z45.1 Encounter for adjustment and management of infusion pump (principal); Z53.9 Procedure and treatment not carried out, unspecified reason
CPT/HCPCS: 80053; 85025; 86301; 96365; 96367; 96372; 96374; 96375; 96413; 96415; 96416; 96417; 96523; J0461; J0640; J1100; J1453; J1642; J2469; J7060; J9190; J9206; J9263; Q5101

== ENCOUNTER 2023-10-17 08:47 | Oncology outpatient (recurring) (ONCR) | payer BC, MEDICAID, SELFPAY ==
[2023-09-29 13:46] LABS: Add Urine Microscopic? YES; Bilirubin Urine Neg (Negative); Blood Urine 3+ (Negative); Glucose Urine UA 2+ (Normal); Ketones Urine 1+ (Negative); Leukocyte Esterase Urine Negative (Negative); Nitrate Urine Negative (Negative); Protein Urine Trace (Negative); Urine Appearance SL Hazy (CLEAR); Urine Color Yellow (Yellow); Urobilinogen Urine Norm (Negative); pH Urine 5 (5-7)
[2023-09-29 13:49] LABS: Add Urine Culture? Yes; Hyaline Casts Urine 0-4 /lpf; Mucus Urine 1+ /hpf; RBC Urine 40-50 /hpf (0-2); Squamous Epithelial Cell Urine 0-4 /hpf (0-5); WBC Urine 0-4 /hpf (0-5)
[2023-10-17 09:10] LABS: Basophils % 0.7 %; Eosinophils # 0.2 10^3/uL (0.0-0.8); Eosinophils % 3.9 %; Hematocrit 43.5 % (37-53); Lymphocytes # 2.4 10^3/uL (0.8-4.8); Lymphocytes % 40.9 %; Mean Corpuscular HGB Conc 33.3 g/dL (30-55); Mean Corpuscular Hemoglobin 30.8 pg (27-33); Mean Corpuscular Volume 92.4 fl (82-101); Mean Platelet Volume 10.2 fL (7.4-10.4); Monocytes # 0.9 10^3/uL (0.2-0.9); Monocytes % 14.3 %; Neutrophils # 2.37 10^3/uL (1.8-7.7); Neutrophils % 39.9 %; Nucleated Red Blood Cells % 0 %; Platelet Count 213 10^3/cmm (157-399); Red Blood Count 4.71 10^6/uL (3.85-5.65); Red Cell Distribution Width 13.2 % (12.1-15.1); White Blood Count 5.94 10^3/uL (3.29-11.43)
[2023-10-17 09:33] LABS: Alanine Aminotransferase 43 U/L (0-41); Albumin Level 3.8 g/dL (3.5-5.2); Alkaline Phosphatase 240 U/L (40-130); Anion Gap 14.5 (5-19); Aspartate Amino Transferase 42 U/L (0-40); Blood Urea Nitrogen 10 mg/dL (8-23); Calcium 8.2 mg/dL (8.5-10.5); Carbon Dioxide 25 mmol/L (22-29); Chloride 111 mmol/L (98-107); Creatinine Clr Calc Pharmacy 107.5535; Globulin 2.7 g/dL (1.3-4.6); Glomerular Filtration Rate 97.6 mL/min (90-130); Glucose 227 mg/dL (65-115); Osmolality Calculated 308 mOsm/kg (285-295); Potassium 4.5 mmol/L (3.5-5.1); Sodium 146 mmol/L (136-145); Total Bilirubin 0.3 mg/dL (0.15-1.2); Total Protein 6.5 g/dL (6.6-8.7)
== END 2023-10-27 23:59 | disposition home or self-care (01) ==
PROVIDERS: Internal Medicine Medical Oncology; PCP Nurse Practitioner Family; Visit Provider Nurse Practitioner Family
DX: Z53.9 Procedure and treatment not carried out, unspecified reason; C25.0 Malignant neoplasm of head of pancreas
CPT/HCPCS: 80053; 81001; 85025; 87086; J1642

== ENCOUNTER 2023-11-18 11:00 | Oncology outpatient (recurring) (ONCR) | payer BC, MEDICAID, SELFPAY ==
[2023-11-02 07:54] LABS: Basophils % 0.5 %; Eosinophils # 0.2 10^3/uL (0.0-0.8); Eosinophils % 2.5 %; Hematocrit 43.2 % (37-53); Lymphocytes # 2.7 10^3/uL (0.8-4.8); Lymphocytes % 31.4 %; Mean Corpuscular HGB Conc 33.8 g/dL (30-55); Mean Corpuscular Hemoglobin 30.2 pg (27-33); Mean Corpuscular Volume 89.3 fl (82-101); Mean Platelet Volume 10.5 fL (7.4-10.4); Monocytes # 0.8 10^3/uL (0.2-0.9); Monocytes % 9.7 %; Neutrophils % 55.8 %; Nucleated Red Blood Cells % 0 %; Platelet Count 191 10^3/cmm (157-399); Red Blood Count 4.84 10^6/uL (3.85-5.65); Red Cell Distribution Width 12.3 % (12.1-15.1); White Blood Count 8.43 10^3/uL (3.29-11.43)
[2023-11-02 08:36] LABS: Alanine Aminotransferase 22 U/L (0-41); Albumin Level 3.6 g/dL (3.5-5.2); Alkaline Phosphatase 211 U/L (40-130); Anion Gap 14.8 (5-19); Aspartate Amino Transferase 25 U/L (0-40); Blood Urea Nitrogen 15 mg/dL (8-23); Calcium 8.7 mg/dL (8.5-10.5); Carbon Dioxide 25 mmol/L (22-29); Chloride 103 mmol/L (98-107); Globulin 3.2 g/dL (1.3-4.6); Glomerular Filtration Rate 113.9 mL/min (90-130); Glucose 231 mg/dL (65-115); Osmolality Calculated 296 mOsm/kg (285-295); Potassium 3.8 mmol/L (3.5-5.1); Sodium 139 mmol/L (136-145); Total Bilirubin 0.4 mg/dL (0.15-1.2); Total Protein 6.8 g/dL (6.6-8.7)
[2023-11-02 09:36] LABS: Cancer Antigen 19 9 125.3 U/mL (0-35)
[2023-11-02] MEDS: dextrose 5% 250 ML 75 ML IV (10:11)
[2023-11-02] MEDS: palonosetron 0.25 mg/5 mL SDV IVP (10:13)
[2023-11-02] MEDS: OLANZapine 5 mg TABLET PO (10:15)
[2023-11-02] MEDS: fosaprepitant 150 MG in sodium chloride 0.9% 50 ML, sodium chloride 0.9% (100 ml) 100 ML 300 MG IV (10:16)
[2023-11-02] MEDS: DEXTROSE 5% IV ×2 (11:14→13:25)
[2023-11-02] MEDS: OXALIPLATIN IV (11:14)
[2023-11-02] MEDS: atropine 1 mg/mL SDV 1 mL 0.400000000000000022 MG IV (13:24)
[2023-11-02] MEDS: LEUCOVORIN IV (13:25)
[2023-11-02] MEDS: irinotecan 300 MG in dextrose 5% 250 ML 176.669999999999987 MG IV (13:25)
[2023-11-02] MEDS: ELASTOMERIC PUMP PUMP IV (15:06)
[2023-11-02] MEDS: FLUOROURACIL IV (15:06)
[2023-11-02] MEDS: SODIUM CHLORIDE IV (15:06)
[2023-11-02 15:11] VITALS: BP 121/83; PULSE 83; TEMP 36.4; O2SAT 98
[2023-11-04 10:23] VITALS: BP 130/87; PULSE 84; RESP 16; TEMP 36.6; O2SAT 98
[2023-11-16 08:49] LABS: Basophils % 0.3 %; Eosinophils # 0.1 10^3/uL (0.0-0.8); Eosinophils % 1.4 %; Hematocrit 40.4 % (37-53); Lymphocytes # 2.7 10^3/uL (0.8-4.8); Mean Corpuscular HGB Conc 33.7 g/dL (30-55); Mean Corpuscular Hemoglobin 29.8 pg (27-33); Mean Corpuscular Volume 88.6 fl (82-101); Mean Platelet Volume 9.6 fL (7.4-10.4); Monocytes % 14.5 %; Neutrophils # 3.23 10^3/uL (1.8-7.7); Neutrophils % 45.5 %; Nucleated Red Blood Cells % 0 %; Platelet Count 173 10^3/cmm (157-399); Red Blood Count 4.56 10^6/uL (3.85-5.65); Red Cell Distribution Width 12.1 % (12.1-15.1)
[2023-11-16 09:22] LABS: Alanine Aminotransferase 31 U/L (0-41); Albumin Level 3.4 g/dL (3.5-5.2); Alkaline Phosphatase 208 U/L (40-130); Anion Gap 12.6 (5-19); Aspartate Amino Transferase 20 U/L (0-40); Blood Urea Nitrogen 10 mg/dL (8-23); Calcium 8.7 mg/dL (8.5-10.5); Cancer Antigen 19 9 75.17 U/mL (0-35); Carbon Dioxide 30 mmol/L (22-29); Chloride 101 mmol/L (98-107); Globulin 3.1 g/dL (1.3-4.6); Glomerular Filtration Rate 113.9 mL/min (90-130); Glucose 111 mg/dL (65-115); Osmolality Calculated 290 mOsm/kg (285-295); Potassium 3.6 mmol/L (3.5-5.1); Sodium 140 mmol/L (136-145); Total Bilirubin 0.4 mg/dL (0.15-1.2); Total Protein 6.5 g/dL (6.6-8.7)
[2023-11-16] MEDS: dextrose 5% 250 ML 75 ML IV (10:03)
[2023-11-16] MEDS: OLANZapine 5 mg TABLET PO (10:03)
[2023-11-16] MEDS: palonosetron 0.25 mg/5 mL SDV IVP (10:04)
[2023-11-16] MEDS: fosaprepitant 150 MG in sodium chloride 0.9% 50 ML, sodium chloride 0.9% (100 ml) 100 ML 300 MG IV (10:08)
[2023-11-16] MEDS: OXALIPLATIN IV (11:13)
[2023-11-16] MEDS: DEXTROSE 5% IV ×2 (11:13→13:56)
[2023-11-16] MEDS: atropine 1 mg/mL SDV 1 mL 0.400000000000000022 MG IV (13:24)
[2023-11-16] MEDS: LEUCOVORIN IV (13:56)
[2023-11-16] MEDS: irinotecan 300 MG in dextrose 5% 250 ML 176.669999999999987 MG IV (14:05)
[2023-11-16 15:50] VITALS: BP 125/73; PULSE 89; O2SAT 98
[2023-11-16] MEDS: fluorouraciL 4,850 MG in elastomeric pump 1 PUMP 2.10999999999999988 MG IV (15:54)
[2023-11-18 10:47] VITALS: BP 127/80; PULSE 60; RESP 18; TEMP 36.4; O2SAT 96
== END 2023-11-27 23:59 | disposition home or self-care (01) ==
PROVIDERS: Nurse Practitioner Family; PCP Nurse Practitioner Family; Visit Provider Nurse Practitioner Family
DX: Z45.1 Encounter for adjustment and management of infusion pump (principal); Z53.9 Procedure and treatment not carried out, unspecified reason
CPT/HCPCS: 36415; 80053; 85025; 86301; 96367; 96368; 96375; 96413; 96415; 96416; 96417; 96523; J0461; J0640; J1100; J1453; J1642; J2469; J7060; J9190; J9206; J9263

== ENCOUNTER 2024-06-02 15:59 | Emergency (ER) | payer BC, MEDICAID, SELFPAY ==
[2024-06-02] VITALS (8 sets, daily range): BP systolic 104–130; BP diastolic 60–90; PULSE 78–92; RESP 18; TEMP 36.6; O2SAT 94–100; BMI 16.2
[2024-06-02 18:18] LABS: Basophils % 0.2 %; Eosinophils # 0.1 10^3/uL (0.0-0.8); Eosinophils % 0.5 %; Hematocrit 50.8 % (37-53); Lymphocytes # 2.7 10^3/uL (0.8-4.8); Lymphocytes % 24.9 %; Mean Corpuscular HGB Conc 32.9 g/dL (30-55); Mean Corpuscular Hemoglobin 28.3 pg (27-33); Mean Corpuscular Volume 86.1 fl (82-101); Mean Platelet Volume 11.2 fL (7.4-10.4); Monocytes # 0.9 10^3/uL (0.2-0.9); Monocytes % 8.8 %; Neutrophils # 6.94 10^3/uL (1.8-7.7); Neutrophils % 65.3 %; Nucleated Red Blood Cells % 0 %; Platelet Count 277 10^3/cmm (157-399); Red Cell Distribution Width 14.2 % (12.1-15.1); White Blood Count 10.63 10^3/uL (3.29-11.43)
[2024-06-02] MEDS: lactated ringers 1,000 ML 999 ML IV (18:26)
--- NOTE | 2024-06-02 18:26 | ED_ITS ---
HPI - Nausea/Vomiting/Diarrhea 2 General: Chief complaint: Nausea/Vomiting/Diarrhea Stated complaint: V for 2 weeks Time Seen by Provider: 06/02/24 17:44 History of Present Illness: 64-year-old male with a history of A-fib on Eliquis, restrictive lung disease, diabetes mellitus, adenocarcinoma of the head of the pancreas among others. Patient has been through multiple rounds of chemotherapy which ended in October 2023. 2 months ago he had finished 5 days of radiation at [facility]. Patient is here tonight because he had started having nausea and vomiting 2 weeks ago. It seemed to be every few days. Then over the last week he has vomited every single day. Over the last 3 or 4 days he cannot keep anything down. He says he swallows things and tries to eat but it seems like it is sitting in his stomach and then he will vomited up sometime later. He has never been diagnosed with gastroparesis to his knowledge. His diabetes developed after his pancreatic cancer. Patient reports he is getting dehydrated. He has not had a bowel movement in 4 days. He is getting lightheaded and dizzy with standing. He has no energy. He denies any fever. He has chronic abdominal pain but says its actually been better recently not worse. He does have Zofran at home. He is tried 4 mg tablets and 8 mg tablets. Patient reports he was put on Augmentin on May 28 for sinusitis and postnasal drip. His vomiting has gotten worse since starting that medication. Patient was prescribed some promethazine but has not picked it up yet. I have reviewed relevant PMH: Oncology Hx as of October 2023: This is a 63-year-old with adenocarcinoma of the head of the pancreas, by clinical evaluation stage IB (T2, N0, M0). He had presented in January 2023 with severe pruritus and jaundice, bilirubin 13.2 mg/dL. Ultrasound showed markedly dilated common bile duct. CT of the abdomen/pelvis showed interval development of marked common bile duct dilatation and pancreatic duct dilatation since March 05, 2019. There was noted to be fullness and increased enhancement of the pancreatic head, highly suspicious for pancreatic head mass. There was noted to be short segment thrombus in the SMV. There is no lymphadenopathy or ascites noted. The liver was normal size with scattered low-attenuation masses consistent with cysts. Patient was [facility] for further management. On 02/11/2023 he underwent ERCP with placement of common bile duct stent. EUS showed 2.8 x 2.8 cm pancreatic head mass abutting the portal vein. FNA biopsy confirmed adenocarcinoma. Staging PET/CT on 03/05/2023 showed no definite abnormal uptake within the pancreatic head. Patchy consolidation in the left upper lobe since at least scan done in October 2020 was without elevated uptake, likely related to scarring. Low-density lesions in the liver were compatible with benign cysts. He had surgical consultation with Dr. Sneha Peñaloza at [facility] on 03/10/2023, and he was recommended to proceed with neoadjuvant chemotherapy. He began cycle 1 of neoadjuvant FOLFIRINOX on 04/18/2023. His restaging CT scans at [facility] on 06/27/2023, following 4 cycles of neoadjuvant chemotherapy, showed ill-defined hypoattenuating mass in the head/uncinate process of the pancreas noted to abut less than 180 degrees of the proximal superior mesenteric vein, which was noted to have a short segment of nearly occlusive thrombus which had increased in size compared to the January study. There was no other evidence of direct local extension or vascular involvement and there was no evidence of distant metastatic disease in the chest, abdomen, or pelvis. At that point he was still deemed medically inoperable due to suboptimal performance status, and he was recommended to continue neoadjuvant chemotherapy. He proceeded with cycle 5 of FOLFIRINOX on 06/28/2023, administered with a 50% reduction in the oxaliplatin dosage. He then continued treatment of 2-week intervals. He began cycle 10 of FOLFIRINOX on 09/21/2023. At that point the CA 19-9 level had declined to 142.2 U/mL.. He had follow-up with Dr. Edmonds at [facility] on 10/31/23. He was recommended to complete 12 cycles of chemotherapy and to then return and be reevaluated for surgery. He continued with cycle 11 of FOLFIRINOX on 11/02/2023. He has not been feeling good since his last treatment. His main complaint is that he has had fairly constant pain in the mid abdominal area, though the severity of the pain does vary between 2 and 5-6. He has limited activity. Some days he is able to do light work, but other days he does not even feel like walking. His appetite has dropped, but he says he is eating. He thinks he has a low-grade fever in the evening, though he does not actually document it. He has occasional sweating at night in association with low blood sugar. He has not had sore mouth or throat. He sometimes coughs up stuff. He does not complain of shortness of breath or chest pain. He has no other GI complaints other than occasional loose stools. Bladder function remains adequate, though he thinks he does not void enough. He complains that his joints are aching and hurting. Recently he has had a headache. He occasionally has dizziness. He still has neuropathy in his feet and occasionally in his hands. Associated symtoms: Denies altered mental status, change in vision, chest pain, dysuria or syncope Related Data Home Medications Medication Instructions Recorded Confirmed apixaban 5 mg tablet (Eliquis) 5 mg PO BID 02/21/20 01/11/24 metoprolol tartrate 100 mg tablet 100 mg PO BID 10/06/20 01/11/24 hydrochlorothiazide 25 mg tablet 25 ea PO 1XD 03/28/23 01/11/24 insulin lispro 100 unit/mL 10 unit SUBCUT DAILY 05/10/23 01/11/24 [facility] Insulin lispro) acetaminophen 500 mg capsule 500 mg PO Q6H PRN 11/16/23 01/11/24 Previous Rx's Medication Instructions Recorded albuterol sulfate 90 mcg/actuation 2 inh inhalation Q4H PRN shortness 11/03/20 aerosol inhaler of breath or wheezing #6.7 grams diphenoxylate-atropine 2.5 2 tab PO QID PRN Diarrhea #60 tabs 04/18/23 mg-0.025 mg tablet (Lomotil) lorazepam 1 mg tablet 0.5 - 1 mg (0.5 - 1 x 1 mg) PO Q8H 04/18/23 PRN anxiety #30 tabs ondansetron HCl 4 mg tablet 4 - 8 mg (1 - 2 x 4 mg) PO TID #30 06/09/23 tabs olanzapine 5 mg tablet 5 mg PO DAILY 2 days #10 tabs 07/14/23 triamcinolone acetonide 0.025 % 1 applic topical BID #15 grams 01/17/24 topical cream hydrocodone 10 mg-acetaminophen 1 tab PO Q6H PRN pain 30 days #120 03/30/24 325 mg tablet tabs prochlorperazine 25 mg rectal 25 mg CO Q12H PRN nausea and 06/02/24 suppository (Compazine) vomiting #9 ea Allergies Allergy/AdvReac Type Severity Reaction Status Date / Time verapamil Allergy ALGY-Rash Verified 11/16/23 09:19 Review of Systems 2 General: Reports: 10 or more systems reviewed and unremarkable except in HPI and below Const: Denies: fever(s) or chills Eyes: Denies: change in vision ENMT: Denies: throat pain Card: Denies: chest pain or syncope Resp: Denies: dyspnea or productive cough GI: Denies: diarrhea : Denies: flank pain, dysuria or urinary frequency Musc: Denies: neck pain, extremity pain or extremity swelling Skin/Breast: Denies: rash or erythema Neuro: Denies: numbness in extremities or weakness in extremities PFSH ED 2 PFSH: Medical History Pancreatic cancer Arthralgia of hip Chronic anticoagulation Atrial fibrillation Chronic lung disease Patient reports failed pulmonary function testing in the past for occupational reasons, no formal PFTs documented BPH (benign prostatic hyperplasia) Hypertension Surgical History History of ERCP (02/11/23) ERCP with placement of common bile duct stent and FNA biopsy of pancreatic head mass Port-A-Cath in place History of tonsillectomy and adenoidectomy History of cholecystectomy Family History Father Congestive heart failure (CHF) Mother Cancer Social History Smoking and tobacco/nicotine status: never used tobacco/nicotine Second hand smoke exposure: Yes Alcohol intake: never Substance/Drug Use: never Lives independently: Yes Household members: spouse Housing: House Marital status: service: No Current occupational status: employed Current occupation: works at [employer] currently Previous occupational history: Previously worked in a [employer] with exposure to fine particles and lacquer Pets and animals: Yes Do you think of yourself as: Straight/Heterosexual Current gender identity: Male Physical Exam 2 Narrative: EXAM NARRATIVE: The patient does look older than stated age. He does look chronically unhealthy and malnourished. He is underweight. However the remainder of his exam is pretty normal. He does have somewhat of a barrel chest. His lung sounds are surprisingly good. He does not have any crackles or increased work of breathing. His abdomen is also surprisingly nontender. I do not feel any fluid waves such as ascites or masses. He does not have peripheral edema. He does have a bucket next to him that is full of vomit. Const: COMMON NORMALS: no limitations and alert EXAM LIMITATIONS: no altered mental status HENMT: COMMON NORMALS: normocephalic, atraumatic and external ears normal H EAD & SCALP: normocephalic and atraumatic EXTERNAL EAR: Yes external ears normal MOUTH: no muffled voice Eye: COMMON NORMALS: EOMs intact bilaterally, conjunctivae normal and no scleral icterus CONJUNCTIVA: Yes conjunctivae normal Neck/C-Spine: COMMON NORMALS: no JVD GENERAL: Yes normal visual inspection and Yes trachea midline Resp: COMMON NORMALS: normal respiratory effort, No use of accessory muscles and clear to auscultation bilaterally AUSCULTATION: clear to auscultation bilaterally Cardio: COMMON NORMALS: no JVD, regular rate and regular rhythm RATE: r egular rate RHYTHM: regular rhythm GI: COMMON NORMALS: Soft to palpation and non-tender PALPATION: Yes Soft to palpation and No Guarding due to palpation present (GI) Extremity: COMMON NORMALS: normal to inspection Neuro: COMMON NORMALS: moves all extremities, no focal motor deficits and no sensory deficits noted SENSORIUM/ORIENTATION: Yes alert SPEECH: speech normal Psych: COMMON NORMALS: mental status grossly normal, Normal thought process present, cooperative, normal affect and speech normal SPEECH: Yes normal speech THOUGHT PROCESS: Normal thought process present Skin: COMMON NORMALS: no rashes or lesions noted, turgor normal and no jaundice GENERAL SKIN EXAM: no rashes or lesions noted and turgor normal Course 2 ED course: Patient's labs nonactionable. CT scan of the abdomen and pelvis does show pretty prominent gastric distention. There is not a bowel obstruction present. He has expected findings in the head of the pancreas. The lipase is negative. He is not experiencing pain. After Compazine and Zofran, he has not had any vomiting. I am wondering whether the radiation/chemo has damaged his gastric nerves and he now has poor motility? He could have a form of gastroparesis. There is nothing that we can do differently in this hospital if we chose to admit him with the exception of IV interventions if necessary. Since he is not obstructed I do not think it is warranted to do a nasogastric tube. I talked with the patient we are going to try putting him on liquid and pur?ed diet for a while. I am going to add antiemetic suppository to his regimen in the event that he needs it. If he fails this, he will have to come back but we are going to try and manage this as an outpatient. Vital Signs: Vital signs: Vital Signs Temperature 97.8 F 06/02/24 16:21 Pulse Rate 85 06/02/24 19:21 Respiratory Rate 18 06/02/24 16:21 Blood Pressure 122/78 06/02/24 19:21 Pulse Oximetry 100 06/02/24 19:21 Oxygen Delivery Me thod Room Air 06/02/24 19:21 MDM - Nausea/Vomiting/Diarrhea Medical Decision Making Nausea and vomiting differential diagnosis includes antibiotic associated side effect, result of pancreatic cancer, chemotherapy side effect (although it has been months since he is had chemo), gastritis, gastroparesis, gastroenteritis, metabolic acidosis or alkalosis, electrolyte disturbance, dehydration, bowel obstruction, progression of the cancer. The patient is already tried Zofran at home. I am going to go ahead and give him IV fluids and check his labs. If he does not respond to the antiemetics, he will likely have to be admitted. Because of this potential admission and his complicated situation, going to repeat a CT scan of his abdomen pelvis for further evaluation of the differential diagnosis for vomiting. Lab Data 06/02/24 17:37 06/02/24 17:37 Radiology Impressions Abdomen/Pelvis CT 06/02/24 18:43 IMPRESSION: 1. Prominent distension of the stomach. Normal caliber small bowel without evidence of obstruction. 2. Biliary stent in place with pneumobilia predominantly in the left lobe of the liver. 3. Ill-defined fullness in the region of the pancreatic head without discrete mass. Correlate clinically for evidence of pancreatitis. There is pancreatic ductal dilation. 4. Minimal nonspecific edema along the paracolic gutters and trace dependent free fluid in the pelvis. 5. Trace left pleural effusion. 6. Other incidental findings as above. COMMENTS: Consistent with the [employer]'s Incidental Findings Committee white paper (J Am Vicky Radiol 2018): Any incidental renal lesion less than 1 cm or classified as too small to characterize, or any incidental cystic renal lesion characterized as simple-appearing, is likely benign. No follow-up imaging is recommended for these lesions per consensus recommendations based on imaging criteria. Laboratory Results WBC 10.63 10^3/uL (3.29-11.43) 06/02/24 17:37 RBC 5.90 10^6/uL (3.85-5.65) H 06/02/24 17:37 Hgb 16.70 g/dL (11.27-16.99) 06/02/24 17:37 Hct 50.8 % (37-53) 06/02/24 17:37 MCV 86.1 fl (82-101) 06/02/24 17:37 MCH 28.3 pg (27-33) 06/02/24 17:37 MCHC 32.9 g/dL (30-55) 06/02/24 17:37 RDW 14.2 % (12.1-15.1) 06/02/24 17:37 Plt Count 277 10^3/cmm (157-399) 06/02/24 17:37 MPV 11.2 fL (7.4-10.4) H 06/02/24 17:37 Neut % (Auto) 65.3 % 06/02/24 17:37 Lymph % (Auto) 24.9 % 06/02/24 17:37 Barry % (Auto) 8.8 % 06/02/24 17:37 Eos % (Auto) 0.5 % 06/02/24 17:37 Baso % (Auto) 0.2 % 06/02/24 17:37 Neut # (Auto) 6.94 10^3/uL (1.8-7.7) 06/02/24 17:37 Lymph # (Auto) 2.7 10^3/uL (0.8-4.8) 06/02/24 17:37 Barry # (Auto) 0.9 10^3/uL (0.2-0.9) 06/02/24 17:37 Eos # (Auto) 0.1 10^3/uL (0.0-0.8) 06/02/24 17:37 Baso # (Auto) 0.0 10^3/uL (0.0-0.1) 06/02/24 17:37 Nucleated RBC % (auto) 0 % 06/02/24 17:37 Nucleated RBCs # 0.0 /100WBC 06/02/24 17:37 Sodium 139 mmol/L (136-145) 06/02/24 17:37 Potassium 4.3 mmol/L (3.5-5.1) 06/02/24 17:37 Chloride 97 mmol/L (98-107) L 06/02/24 17:37 Carbon Dioxide 29 mmol/L (22-29) 06/02/24 17:37 Anion Gap 17.3 (5-19) 06/02/24 17:37 BUN 18 mg/dL (8-23) 06/02/24 17:37 Creatinine 0.8 mg/dL (0.7-1.2) 06/02/24 17:37 GFR Calculation 97.3 mL/min (90-130) 06/02/24 17:37 Glucose 167 mg/dL (65-115) H 06/02/24 17:37 Calculated Osmolality 294 mOsm/kg (285-295) 06/02/24 17:37 Calcium 10.0 mg/dL (8.5-10.5) 06/02/24 17:37 Magnesium 2.1 mg/dL (1.7-2.3) 06/02/24 17:37 Total Bilirubin 1.0 mg/dL (0.15-1.2) 06/02/24 17:37 AST 33 U/L (0-40) 06/02/24 17:37 ALT 40 U/L (0-41) 06/02/24 17:37 Alkaline Phosphatase 341 U/L (40-130) H 06/02/24 17:37 Total Protein 8.7 g/dL (6.6-8.7) 06/02/24 17:37 Albumin 4.3 g/dL (3.5-5.2) 06/02/24 17:37 Globulin 4.4 g/dL (1.3-4.6) 10/05/24 17:37 Lipase 12 U/L (13-60) L 06/02/24 17:37 All radiology interpretation(s) finalized by discharge Discharge Plan Discharge Patient Disposition: Home Clinical Impression: Gastric distention Vomiting Qualifiers: Migraine intractability: nonintractable Condition: Stable Prescriptions: New prochlorperazine [Compazine] 25 mg suppository 25 mg CO Q12H PRN (Reason: nausea and vomiting) Qty: 9 0RF No Action metoprolol tartrate 100 mg tablet 100 mg PO BID hydrochlorothiazide 25 mg tablet 25 ea PO 1XD triamcinolone acetonide 0.025 % cream 1 applic topical BID Qty: 15 0RF Rx Instructions: very thin layer to area BID and rub in well x 5 days with 4 days off. If persistent, repeat. lorazepam 1 mg tablet 0.5 - 1 mg PO Q8H PRN (Reason: anxiety) Qty: 30 2RF diphenoxylate-atropine [Lomotil] 2.5-0.025 mg tablet 2 tab PO QID PRN (Reason: Diarrhea) Qty: 60 3RF Rx Instructions: 2 tablets orally 4 times daily until control of diarrhea has been achieved. insulin lispro [Admelog SoloStar U-100 Insulin] 100 unit/mL insulin pen 10 unit SUBCUT DAILY acetaminophen 500 mg capsule 500 mg PO Q6H PRN ondansetron HCl 4 mg tablet 4 - 8 mg PO TID Qty: 30 2RF olanzapine 5 mg tablet 5 mg PO DAILY 2 Days Qty: 10 1RF Rx Instructions: Take one tab daily on days 2 and 3 after chemo treatment. hydrocodone-acetaminophen 10-325 mg tablet 1 tab PO Q6H PRN (Reason: pain) 30 Days Qty: 120 0RF Eliquis 5 mg Tablet 5 mg PO BID albuterol sulfate 90 mcg/actuation HFA aerosol inhaler 2 inh INHALATION Q4H PRN (Reason: shortness of breath or wheezing) Qty: 6.7 1RF Discharge Orders: Discharge ED (Routine); Ordered 06/02/24 Ordered By: Cal Treviño Referrals: Layla Ryan TERRAZZO POLISHER [Primary Care Provider] - Discharge Diet: GI Soft Patient Instructions: Acute Nausea and Vomiting (ED), Pain Management Activity Restrictions/Additional Instructions: You do have distention of the stomach and the first part of the small bowel. It does not appear to be a bowel obstruction. You could have gastroparesis or ileus of the upper gastrointestinal tract. Unfortunately there is not a very good treatment for this. It could be a side effect of your chemo and/or radiation. Sometimes the nerves near the stomach are damaged when they do radiation for the pancreas. The first-line therapy is to change her diet to a GI soft diet. Pur?ed and liquid foods. You should also alternate Zofran, Phenergan, Compazine as needed. Do not take them at the same time. If you are still unable to keep down adequate nutrition and hydration, please call your doctor or return to ER. Coding Level of Care Code ED Hardware Trainer for Carlos De Jesus
[2024-06-02 18:27] LABS: Alanine Aminotransferase 40 U/L (0-41); Albumin Level 4.3 g/dL (3.5-5.2); Alkaline Phosphatase 341 U/L (40-130); Anion Gap 17.3 (5-19); Aspartate Amino Transferase 33 U/L (0-40); Blood Urea Nitrogen 18 mg/dL (8-23); Carbon Dioxide 29 mmol/L (22-29); Chloride 97 mmol/L (98-107); Creatinine Clr Calc Pharmacy 77.8037; Globulin 4.4 g/dL (1.3-4.6); Glomerular Filtration Rate 97.3 mL/min (90-130); Glucose 167 mg/dL (65-115); Lipase 12 U/L (13-60); Magnesium 2.1 mg/dL (1.7-2.3); Osmolality Calculated 294 mOsm/kg (285-295); Potassium 4.3 mmol/L (3.5-5.1); Sodium 139 mmol/L (136-145); Total Protein 8.7 g/dL (6.6-8.7)
[2024-06-02] MEDS: ondansetron 2 mg/ML SDV 2 mL 4 MG IVP (18:27)
--- NOTE | 2024-06-02 18:43 | CTR_ITS ---
PROCEDURE INFORMATION: Exam: CT Abdomen And Pelvis With Contrast Exam date and time: 06/02/2024 6:55 PM Age: 64 years old Clinical indication: Nausea and vomiting; Abdominal pain; Generalized; Prior surgery; Surgery date: 6+ months; Surgery type: Gb. Ductal stent. Patient HX: C/O abd pain with n/v. History of pancreatic adenocarcinoma. ; Additional info: Vomiting; Pancreatic adenocarcinoma, S/P chemo and radiation > 2 mos ago; Vomiting TECHNIQUE: Imaging protocol: Computed tomography of the abdomen and pelvis with contrast. Radiation optimization: All CT scans at this facility use at least one of these dose optimization techniques: automated exposure control; mA and/or kV adjustment per patient size (includes targeted exams where dose is matched to clinical indication); or iterative reconstruction. Contrast material: OMNI 350; Contrast volume: 100 ml; Contrast route: INTRAVENOUS (IV); COMPARISON: PT PET [place] SUBSEQ [id number] 03/05/2023 9:36 AM RADIATION DOSE METRICS: Total DLP (mGy-cm): 381.3 FINDINGS: Pleural spaces: Trace left pleural effusion. Visualized lung bases are otherwise clear. Liver: Small scattered simple hepatic cysts. Mild heterogeneous liver parenchymal enhancement without evidence of a discrete mass. Gallbladder and biliary ducts: The there is pneumobilia predominantly in the left hepatic lobe. There is a biliary stent in place. Pancreas: There is pancreatic ductal dilation. Fullness of the pancreatic parenchyma at the head without discrete mass. This could also represent inflammatory change if there are signs of pancreatitis. Spleen: Normal appearance of the spleen. Small splenule. Adrenal glands: Normal appearance of both adrenal glands. Kidneys and ureters: Too small to characterize renal hypodensities likely representing small cysts. Punctate foci of increased density within the renal collecting systems suggesting tiny nonobstructing nephroliths. No hydronephrosis or hydroureter. Stomach and bowel: Stomach is diffusely distended without evidence of wall thickening. Normal caliber small bowel without evidence of obstruction. Mild stool burden throughout. Appendix: No evidence of appendicitis. Intraperitoneal space: Minimal dependent free fluid in the pelvis. No evidence of free air. Minimal edema along the paracolic gutters. Vasculature: There is mild calcific atherosclerotic disease of the abdominal aorta. No evidence of an aneurysm. Pelvic calcifications, likely representing incidental phleboliths. Lymph nodes: Small scattered mesenteric lymph nodes without pathologic enlargement. Urinary bladder: Normal appearance of the urinary bladder. No intravesicular stone. Reproductive: Left varicocele incidentally noted. Prostate is enlarged measuring approximately 6.1 cm. Bones/joints: Regional osseous structures have a normal appearance. No fracture, aggressive osseous lesion or significant degenerative change is seen. Soft tissues: The visualized superficial soft tissues have a normal appearance. CT/CT abdomen pelvis w con* [id number] IMPRESSION: 1. Prominent distension of the stomach. Normal caliber small bowel without evidence of obstruction. 2. Biliary stent in place with pneumobilia predominantly in the left lobe of the liver. 3. Ill-defined fullness in the region of the pancreatic head without discrete mass. Correlate clinically for evidence of pancreatitis. There is pancreatic ductal dilation. 4. Minimal nonspecific edema along the paracolic gutters and trace dependent free fluid in the pelvis. 5. Trace left pleural effusion. 6. Other incidental findings as above. COMMENTS: Consistent with the [employer]'s Incidental Findings Committee white paper (J Am Vicky Radiol 2018): Any incidental renal lesion less than 1 cm or classified as too small to characterize, or any incidental cystic renal lesion characterized as simple-appearing, is likely benign. No follow-up imaging is recommended for these lesions per consensus recommendations based on imaging criteria.
--- NOTE | 2024-06-02 18:55 | PC.NURSE ---
This nurse took over from Griselda Rome at shift change.
[2024-06-02] MEDS: iohexol 350 mg/mL 500 mL Btl (per mL) IV (18:56)
[2024-06-02] MEDS: prochlorperazine 10 mg/2 mL Inj IVP (19:15)
[2024-06-02] MEDS: sodium chloride 0.9% 1,000 ML 999 ML IV (19:15)
[2024-06-02] MEDS: diphenhydrAMINE 50 mg/mL SDV 1mL 25 MG IVP (19:17)
== END 2024-06-02 21:16 | disposition home or self-care (01) ==
PROVIDERS: Emergency Provider Emergency Medicine; PCP Nurse Practitioner Family
DX: K31.89 Other diseases of stomach and duodenum (principal); R11.11 Vomiting without nausea; Z79.01 Long term (current) use of anticoagulants; Z79.4 Long term (current) use of insulin; Z77.22 Contact with and (suspected) exposure to environmental tobacco smoke (acute) (chronic); Z85.07 Personal history of malignant neoplasm of pancreas; I10 Essential (primary) hypertension; E11.9 Type 2 diabetes mellitus without complications; Z92.21 Personal history of antineoplastic chemotherapy; Z79.899 Other long term (current) drug therapy
CPT/HCPCS: 74177; 80053; 83690; 83735; 85025; 96374; 96375; 99285; J0780; J1200; J2405; J7030; J7120

== ENCOUNTER 2024-06-27 05:04 | Observation (INO) | payer BC, MEDICAID, SELFPAY ==
[2024-06-27] VITALS (18 sets, daily range): BP systolic 85–117; BP diastolic 58–77; PULSE 73–87; RESP 16–18; TEMP 36.4–36.7; O2SAT 94–100; BMI 16.7; BMI 16.9
--- NOTE | 2024-06-27 05:11 | ECG_ITS ---
[facility] Test Date: 2024-06-27 Pat Name: Mu Willis Department: Room: Gender: Male A P Mechanic: : 1960 Requested By: Ariana Burkett Order Number: [id number] Elias Marcial MD: Any Polanco M.D. Measurements Intervals [place] Rate: 72 P: 0 SC: 0 QRS: -63 QRSD: 110 T: 81 QT: 356 QTc: 390 Interpretive Statements ATRIAL FIBRILLATION INCOMPLETE RIGHT BUNDLE BRANCH BLOCK [ LEFT ANTERIOR FASCICULAR BLOCK NONSPECIFIC T-WAVE ABNORMALITY Compared to ECG 11/02/2020 22:18:48 No significant change Electronically Signed On 06-27-2024 08:30:53 CDT by Any Polanco M.D. [email or web address]
--- NOTE | 2024-06-27 05:11 | XRR_ITS ---
XR/XR chest 1V portable [id number] PROCEDURE INFORMATION: Exam: XR Chest Exam date and time: 06/27/2024 5:34 AM Age: 64 years old Clinical indication: Shortness of breath; Prior surgery; Surgery date: 6+ months; Surgery type: Port a cath; Patient HX: Pancreatic CA TECHNIQUE: Imaging protocol: Radiologic exam of the chest. Views: 1 view. COMPARISON: CT chest [facility] [id number] 11/25/2020 2:32 PM FINDINGS: Lungs: Unremarkable. No consolidation. Pleural spaces: Unremarkable. No pleural effusion. No pneumothorax. Heart/Mediastinum: Unremarkable. No cardiomegaly. Bones/joints: Unremarkable. Right infusion port terminates in the SVC. Pleural is thickening, volume loss, an infiltrate or fibrosis in the left lung. IMPRESSION: Infusion port terminates near the atrial caval junction.
--- NOTE | 2024-06-27 05:23 | ED_ITS ---
Documented by User: Ariana Aguila MD 06/27/24 05:26 HPI - SOB/Dyspnea 2 General: Chief Complaint: Shortness of Breath/Dyspnea Stated Complaint: SOB Time Seen by Provider: 06/27/24 05:06 History of Present Illness: HPI Narrative: 64-year-old man with a history of atrial fibrillation, diabetes, chronic anticoagulation on Eliquis and pancreatic cancer who was recently discharged from [facility] after having had a pancreatic or biliary stent placed it sounds like who presents the emergency room by ambulance with shortness of breath. EMS reports that his oxygen saturations were in the 80s and he has been placed on oxygen. He has had some cough. He says he has had pneumonia multiple times in the past but has never spoke to and does not have a diagnosis of COPD. He had some chest pain earlier but is not having any now. No lower extremity swelling. No calf pain. No nausea or vomiting. No abdominal pain currently. Related Data Home Medications Medication Instructions Recorded Confirmed apixaban 5 mg tablet (Eliquis) 5 mg PO BID 02/21/20 06/27/24 digoxin 125 mcg (0.125 mg) tablet 0.125 mcg PO DAILY 06/27/24 06/27/24 metoprolol tartrate 25 mg tablet 25 mg PO BID 06/27/24 06/27/24 pantoprazole 40 mg tablet,delayed 40 mg PO DAILY 06/27/24 06/27/24 release Previous Rx's Medication Instructions Recorded ondansetron HCl 4 mg tablet 4 - 8 mg (1 - 2 x 4 mg) PO TID #30 06/09/23 tabs prochlorperazine 25 mg rectal 25 mg DE Q12H PRN nausea and 06/02/24 suppository (Compazine) vomiting #9 ea Allergies Allergy/AdvReac Type Severity Reaction Status Date / Time verapamil Allergy ALGY-Rash Verified 11/16/23 09:19 Review of Systems 2 Narrative: Constitutional symptoms: Negative except as documented in HPI. Skin symptoms: Negative except as documented in HPI. Eye symptoms: Negative except as documented in HPI. ENMT symptoms: Negative except as documented in HPI. Respiratory symptoms: Negative except as documented in HPI. Cardiovascular symptoms: Negative except as documented in HPI. Gastrointestinal symptoms: Negative except as documented in HPI. Genitourinary symptoms: Negative except as documented in HPI. Musculoskeletal symptoms: Negative except as documented in HPI. Neurologic symptoms: Negative except as documented in HPI. Psychiatric symptoms: Negative except as documented in HPI. Endocrine symptoms: Negative except as documented in HPI. PFSH ED 2 PFSH: Medical History Pancreatic cancer Arthralgia of hip Chronic anticoagulation Atrial fibrillation Chronic lung disease Patient reports failed pulmonary function testing in the past for occupational reasons, no formal PFTs documented BPH (benign prostatic hyperplasia) Hypertension Surgical History History of ERCP (02/11/23) ERCP with placement of common bile duct stent and FNA biopsy of pancreatic head mass Port-A-Cath in place History of tonsillectomy and adenoidectomy History of cholecystectomy Family History Father Congestive heart failure (CHF) Mother Cancer Social History Smoking and tobacco/nicotine status: never used tobacco/nicotine Second hand smoke exposure: Yes Alcohol intake: never Substance/Drug Use: never Lives independently: Yes Household members: spouse Housing: House Marital status: service: No Current occupational status: employed Current occupation: works at [employer] currently 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 Patient is quite cachectic appearing Skin: Warm, dry. Head: Normocephalic, atraumatic. Neck: Supple, trachea midline. Eye: Extraocular movements are intact. Ears, nose, mouth and throat: mucosa moist. Cardiovascular: Regular, Normal peripheral perfusion. Respiratory: Lungs are clear to auscultation, respirations are non-labored, breath sounds are equal, Symmetrical chest wall expansion. Gastrointestinal: Soft, Nontender, Non distended Musculoskeletal: Normal ROM, no deformity. Neurological: Alert and oriented, No focal neurological deficit observed. Psychiatric: Cooperative, appropriate mood & affect. Course 2 Vital Signs: Vital signs: Vital Signs Temperature 97.7 F 10/30/24 05:07 Pulse Rate 79 06/27/24 14:08 Respiratory Rate 16 06/27/24 13:37 Blood Pressure 117/71 06/27/24 14:08 Pulse Oximetry 100 06/27/24 14:08 Oxygen Delivery Me thod Room Air 06/27/24 13:37 Oxygen Flow Rate 4 06/27/24 05:07 MDM - SOB/Dyspnea Medical Decision Making Differential diagnosis for patient with shortness of breath includes but is not limited to and based on the above HPI, review of systems and physical exam: Pneumonia. Bronchitis. Asthma or COPD with acute exacerbation. Acute coronary syndrome / RI. Pulmonary embolism. Anxiety. Congestive heart failure. Viral infections including influenza and Covid-19. Atrial fibrillation. Anxiety. Pleural effusion. Pneumothorax. Orders placed to evaluate differential diagnosis based on the above differential, HPI and physical exam EKG: Time 5:11 AM. Rate 72. Atrial fibrillation with controlled rate, No ST-T changes, no ectopy, This was reviewed and interpreted by myself the ER physician at 5:14 AM Lab Review: Laboratory results were reviewed and interpreted by myself the emergency room physician. Patient care was transitioned to Dr. Woodson at shift change. Lab work still pending. Lab Data 06/27/24 05:30 06/27/24 05:30 Labs/Radiology: Radiology Impressions Chest X-Ray 06/27/24 05:11 PROCEDURE INFORMATION: Exam: XR Chest Exam date and time: 06/27/2024 5:34 AM Age: 64 years old Clinical indication: Shortness of breath; Prior surgery; Surgery date: 6+ months; Surgery type: Port a cath; Patient HX: Pancreatic CA TECHNIQUE: Imaging protocol: Radiologic exam of the chest. Views: 1 view. COMPARISON: CT chest [facility] [id number] 11/25/2020 2:32 PM FINDINGS: Lungs: Unremarkable. No consolidation. Pleural spaces: Unremarkable. No pleural effusion. No pneumothorax. Heart/Mediastinum: Unremarkable. No cardiomegaly. Bones/joints: Unremarkable. Right infusion port terminates in the SVC. Pleural is thickening, volume loss, an infiltrate or fibrosis in the left lung. IMPRESSION: Infusion port terminates near the atrial caval junction. Chest CTA 06/27/24 08:24 IMPRESSION: 1. No pulmonary embolism. 2. Patchy area of consolidation in the LEFT upper lobe was also present on the PET/CT of 03/05/2023 and FDG negative. 3. There are a few additional very small pulmonary nodules which are too small to characterize but could represent early metastatic disease. 4. New ascites noted in the upper abdomen that was not present on 06/02/2024. 5. Hepatic lesion 1.2 cm, noted to be a cyst on a prior CT from 06/02/2024. Laboratory Results WBC 9.03 10^3/uL (3.29-11.43) 06/27/24 05:30 RBC 4.65 10^6/uL (3.85-5.65) 06/27/24 05:30 Hgb 13.40 g/dL (11.27-16.99) 06/27/24 05:30 Hct 40.8 % (37-53) 06/27/24 05:30 MCV 87.7 fl (82-101) 06/27/24 05:30 MCH 28.8 pg (27-33) 06/27/24 05:30 MCHC 32.8 g/dL (30-55) 06/27/24 05:30 RDW 14.9 % (12.1-15.1) 06/27/24 05:30 Plt Count 173 10^3/cmm (157-399) 06/27/24 05:30 MPV 11.3 fL (7.4-10.4) H 06/27/24 05:30 Neut % (Auto) 75.1 % 06/27/24 05:30 Lymph % (Auto) 14.4 % 06/27/24 05:30 [place] % (Auto) 9.5 % 06/27/24 05:30 Eos % (Auto) 0.7 % 06/27/24 05:30 Baso % (Auto) 0.1 % 06/27/24 05:30 Neut # (Auto) 6.78 10^3/uL (1.8-7.7) 06/27/24 05:30 Lymph # (Auto) 1.3 10^3/uL (0.8-4.8) 06/27/24 05:30 [place] # (Auto) 0.9 10^3/uL (0.2-0.9) 06/27/24 05:30 Eos # (Auto) 0.1 10^3/uL (0.0-0.8) 06/27/24 05:30 Baso # (Auto) 0.0 10^3/uL (0.0-0.1) 06/27/24 05:30 Nucleated RBC % (auto) 0 % 06/27/24 05:30 Nucleated RBCs # 0.0 /100WBC 06/27/24 05:30 Specimen Type Arterial 06/27/24 05:40 Sample Site Radial, right 06/27/24 05:40 ABG pH 7.43 (7.35-7.45) 06/27/24 05:40 ABG pCO2 41.9 mmHg (35-45) 06/27/24 05:40 ABG pO2 76.7 mmHg (80.0-100.0) L 06/27/24 05:40 ABG HCO3 27.6 mmol/L (22-26) H 06/27/24 05:40 ABG O2 Saturation 96.6 06/27/24 05:40 ABG Base Excess 2.9 mmol/L (-2.0-2.0) H 06/27/24 05:40 Raimundo Test Pos 06/27/24 05:40 A-a O2 Gradient 2.8 mmHg (5-10) L 06/27/24 05:40 Hematocrit 38.6 % (42-52) L 06/27/24 05:40 Hgb O2 Saturation 94.7 % (95-100) L 06/27/24 05:40 Carboxyhemoglobin 0.9 %THgb (0.4-20.1) 06/27/24 05:40 Methemoglobin 1.0 % (0.4-1.5) 06/27/24 05:40 Total Hemoglobin 12.6 g/dL (14-18) L 06/27/24 05:40 Sodium 134.0 mmol/L (131-143) 06/27/24 05:40 Potassium 4.1 mmol/L (3.5-5.0) 06/27/24 05:40 Glucose 147.0 mg/dL (70-115) H 06/27/24 05:40 Ionized Calcium 1.2 mmol/L (1.1-1.4) 06/27/24 05:40 O2 Delivery Device Nc 06/27/24 05:40 O2 Liters/Min 3.0 % 06/27/24 05:40 Air Pollution Analyst ID [email or web address] 06/27/24 05:40 Sodium 134 mmol/L (136-145) L 06/27/24 05:30 Potassium 5.1 mmol/L (3.5-5.1) 06/27/24 05:30 Chloride 98 mmol/L (98-107) 06/27/24 05:30 Carbon Dioxide 27 mmol/L (22-29) 06/27/24 05:30 Anion Gap 14.1 (5-19) 06/27/24 05:30 BUN 11 mg/dL (8-23) 06/27/24 05:30 Creatinine 0.7 mg/dL (0.7-1.2) 06/27/24 05:30 GFR Calculation 113.5 mL/min (90-130) 06/27/24 05:30 Glucose 152 mg/dL (65-115) H 06/27/24 05:30 Calculated Osmolality 280 mOsm/kg (285-295) L 06/27/24 05:30 Lactic Acid 1.9 mmol/L (0.5-2.2) 06/27/24 05:30 Calcium 8.2 mg/dL (8.5-10.5) L 06/27/24 05:30 Total Bilirubin 0.7 mg/dL (0.15-1.2) 06/27/24 05:30 AST 55 U/L (0-40) H 06/27/24 05:30 ALT 48 U/L (0-41) H 06/27/24 05:30 Alkaline Phosphatase 309 U/L (40-130) H 06/27/24 05:30 Troponin T Baseline 8 ng/L (0-15) 06/27/24 05:30 Troponin T 120 Minute 6.40 ng/L (0-15) 06/27/24 08:20 Delta Troponin T -1.60 ABS# (0-10) L 06/27/24 08:20 Troponin T Hi Sens 6Hr 6.06 ng/L (0-15) 06/27/24 11:38 Troponin T Hi Sens 6Hr Delta -1.94 ng/L (0-12) L 06/27/24 11:38 NT-Pro-B Natriuret Pep 1362 pg/mL (0-125) H 06/27/24 05:30 Total Protein 6.1 g/dL (6.6-8.7) L 06/27/24 05:30 Albumin 3.4 g/dL (3.5-5.2) L 06/27/24 05:30 Globulin 2.7 g/dL (1.3-4.6) 06/27/24 05:30 Lipase 8 U/L (13-60) L 06/27/24 08:20 Urine Color Yellow (Yellow) 06/27/24 10:13 Urine Appearance Clear (CLEAR) 06/27/24 10:13 Urine pH 5.5 (5-7) 06/27/24 10:13 Ur Specific [place] 1.051 (1.005-1.030) H 06/27/24 10:13 Urine Protein Negative (Negative) 06/27/24 10:13 Urine Glucose (UA) Negative (Normal) 06/27/24 10:13 Urine Ketones Negative (Negative) 06/27/24 10:13 Urine Blood Negative (Negative) 06/27/24 10:13 Urine Nitrate Negative (Negative) 06/27/24 10:13 Urine Bilirubin Negative (Negative) 06/27/24 10:13 Urine Urobilinogen 1.0 mg/dL (Negative) 06/27/24 10:13 Ur Leukocyte Esterase Negative (Negative) 06/27/24 10:13 Amorphous Sediment Not Reportable 06/27/24 10:13 Digoxin 0.9 ng/mL (0.6-1.2) 06/27/24 08:20 Coronavirus (PCR) Negative (Negative) 06/27/24 10:55 Influenza A (PCR) Negative (Negative) 06/27/24 10:55 Influenza Type B (PCR) Negative (Negative) 06/27/24 10:55 RSV (PCR) Negative (Negative) 06/27/24 10:55 Discharge Plan Discharge Patient Disposition: Admitted As Inpatient Admit Provider: Gamal Snyder Clinical Impression: Atrial fibrillation, Uncontrolled type 2 diabetes mellitus, Malignant neoplasm of head of pancreas, Transaminitis, Duodenal stenosis Condition: Stable Sign Out Sign Out Data: Patient Sign Out occurred on 06/27/24 at 05:53. Patient's care was discussed, and care was transferred from Ariana Aguila MD to Yuriy Woodson DO. Coding Level of Care Code ED Road Boss for Chg Fwd Documented by User: Yuriy Woodson DO 06/27/24 15:36 HPI - SOB/Dyspnea 2 General: Chief Complaint: Shortness of Breath/Dyspnea Stated Complaint: SOB Time Seen by Provider: 06/27/24 05:06 History of Present Illness: HPI Narrative: 64-year-old man with a history of atrial fibrillation, diabetes, chronic anticoagulation on Eliquis and pancreatic cancer who was recently discharged from [facility] after having had a pancreatic or biliary stent placed it sounds like who presents the emergency room by ambulance with shortness of breath. EMS reports that his oxygen saturations were in the 80s and he has been placed on oxygen. He has had some cough. He says he has had pneumonia multiple times in the past but has never spoke to and does not have a diagnosis of COPD. He had some chest pain earlier but is not having any now. No lower extremity swelling. No calf pain. No nausea or vomiting. No abdominal pain currently. Patient reports sudden onset of shortness of breath last night. He is still taking his Eliquis. Reviewed notes patient had at the bedside from [place] he had a duodenal stenosis however they did not place a duodenal stent because they were concerned about jailing the biliary stent. Biliary stent is seem to still be functional according to the notes. They did place a endoscopic guided gastrojejunostomy tube. Associated symptoms: Deny abdominal pain, chest pain or fever(s) Related Data Home Medications Medication Instructions Recorded Confirmed apixaban 5 mg tablet (Eliquis) 5 mg PO BID 02/21/20 06/27/24 digoxin 125 mcg (0.125 mg) tablet 0.125 mcg PO DAILY 06/27/24 06/27/24 metoprolol tartrate 25 mg tablet 25 mg PO BID 06/27/24 06/27/24 pantoprazole 40 mg tablet,delayed 40 mg PO DAILY 06/27/24 06/27/24 release Previous Rx's Medication Instructions Recorded ondansetron HCl 4 mg tablet 4 - 8 mg (1 - 2 x 4 mg) PO TID #30 06/09/23 tabs prochlorperazine 25 mg rectal 25 mg DE Q12H PRN nausea and 06/02/24 suppository (Compazine) vomiting #9 ea Allergies Allergy/AdvReac Type Severity Reaction Status Date / Time verapamil Allergy ALGY-Rash Verified 11/16/23 09:19 Review of Systems 2 Const: Denies: fever(s) or chills Card: Denies: chest pain Resp: Denies: dyspnea GI: Denies: abdominal pain : Denies: dysuria, urinary frequency or urinary urgency Musc: Denies: neck pain or back pain Skin/Breast: Denies: rash PFSH ED 2 PFSH: Medical History Pancreatic cancer Arthralgia of hip Chronic anticoagulation Atrial fibrillation Chronic lung disease Patient reports failed pulmonary function testing in the past for occupational reasons, no formal PFTs documented BPH (benign prostatic hyperplasia) Hypertension Surgical History History of ERCP (02/11/23) ERCP with placement of common bile duct stent and FNA biopsy of pancreatic head mass Port-A-Cath in place History of tonsillectomy and adenoidectomy History of cholecystectomy Family History Father Congestive heart failure (CHF) Mother Cancer Social History Smoking and tobacco/nicotine status: never used tobacco/nicotine Second hand smoke exposure: Yes Alcohol intake: never Substance/Drug Use: never Lives independently: Yes Household members: spouse Housing: House Marital status: service: No Current occupational status: employed Current occupation: works at [employer] currently 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 Pets and animals: Yes Do you think of yourself as: Straight/Heterosexual Current gender identity: Male Physical Exam 2 Const: COMMON NORMALS: no acute distress GENERAL APPEARANCE: cooperative and comfortable ORIENTATION/CONSCIOUSNESS: Yes awake, Yes oriented to person, Yes oriented to place and Yes oriented to time HENMT: COMMON NORMALS: normocephalic, atraumatic and hearing grossly normal bilaterally HEAD & SCALP: normocephalic and atraumatic Resp: COMMON NORMALS: normal respiratory effort, No retractions, No use of accessory muscles and clear to auscultation bilaterally AUSCULTATION: clear to auscultation bilaterally Cardio: COMMON NORMALS: regular rate, regular rhythm and No murmurs present (Cardio) RATE: regular rate RHYTHM: regular rhythm GI: COMMON NORMALS: Soft to palpation and No hepatosplenomegaly present A USCULTATION: Yes normoactive bowel sounds PALPATION: Yes Soft to palpation, No Tenderness to palpation present (GI), No Guarding due to palpation present (GI) and Yes No hepatosplenomegaly present Extremity: COMMON NORMALS: normal to inspection, capillary refill normal, no clubbing, cyanosis or edema, no calf tenderness and no pedal edema Neuro: SENSORIUM/ORIENTATION: Yes oriented to person, Yes oriented to place and Yes oriented to time Skin: COMMON NORMALS: no rashes or lesions noted GENERAL SKIN EXAM: no rashes or lesions noted Course 2 Vital Signs: Vital signs: Vital Signs Temperature 97.7 F 06/27/24 05:07 Pulse Rate 79 06/27/24 14:08 Respiratory Rate 16 06/27/24 13:37 Blood Pressure 117/71 06/27/24 14:08 Pulse Oximetry 100 06/27/24 14:08 Oxygen Delivery Me thod Room Air 06/27/24 13:37 Oxygen Flow Rate 4 06/27/24 05:07 MDM - SOB/Dyspnea Medical Decision Making Differential diagnosis for patient with shortness of breath includes but is not limited to and based on the above HPI, review of systems and physical exam: Pneumonia. Bronchitis. Asthma or COPD with acute exacerbation. Acute coronary syndrome / RI. Pulmonary embolism. Anxiety. Congestive heart failure. Viral infections including influenza and Covid-19. Atrial fibrillation. Anxiety. Pleural effusion. Pneumothorax. Orders placed to evaluate differential diagnosis based on the above differential, HPI and physical exam EKG: Time 5:11 AM. Rate 72. Atrial fibrillation with controlled rate, No ST-T changes, no ectopy, This was reviewed and interpreted by myself the ER physician at 5:14 AM Lab Review: Laboratory results were reviewed and interpreted by myself the emergency room physician. Patient care was transitioned to Dr. Woodson at shift change. Lab work still pending. Care assumed at change of shift no PE noted on CT transaminitis still present but his T. bili is decreased. Suspect he may be developing aspiration pneumonia. He has a gastric jejunostomy tube that was placed by endoscopic assisted ultrasound. Discussed with Dr. Snyder has been started on Zosyn. Blood pressure is slightly low. He has been given IV fluids. Lab Data 06/27/24 05:30 06/27/24 05:30 Labs/Radiology: Radiology Impressions Chest X-Ray 06/27/24 05:11 PROCEDURE INFORMATION: Exam: XR Chest Exam date and time: 06/27/2024 5:34 AM Age: 64 years old Clinical indication: Shortness of breath; Prior surgery; Surgery date: 6+ months; Surgery type: Port a cath; Patient HX: Pancreatic CA TECHNIQUE: Imaging protocol: Radiologic exam of the chest. Views: 1 view. COMPARISON: CT chest [facility] [id number] 11/25/2020 2:32 PM FINDINGS: Lungs: Unremarkable. No consolidation. Pleural spaces: Unremarkable. No pleural effusion. No pneumothorax. Heart/Mediastinum: Unremarkable. No cardiomegaly. Bones/joints: Unremarkable. Right infusion port terminates in the SVC. Pleural is thickening, volume loss, an infiltrate or fibrosis in the left lung. IMPRESSION: Infusion port terminates near the atrial caval junction. Chest CTA 06/27/24 08:24 IMPRESSION: 1. No pulmonary embolism. 2. Patchy area of consolidation in the LEFT upper lobe was also present on the PET/CT of 03/05/2023 and FDG negative. 3. There are a few additional very small pulmonary nodules which are too small to characterize but could represent early metastatic disease. 4. New ascites noted in the upper abdomen that was not present on 06/02/2024. 5. Hepatic lesion 1.2 cm, noted to be a cyst on a prior CT from 06/02/2024. Laboratory Results WBC 9.03 10^3/uL (3.29-11.43) 06/27/24 05:30 RBC 4.65 10^6/uL (3.85-5.65) 06/27/24 05:30 Hgb 13.40 g/dL (11.27-16.99) 06/27/24 05:30 Hct 40.8 % (37-53) 06/27/24 05:30 MCV 87.7 fl (82-101) 06/27/24 05:30 MCH 28.8 pg (27-33) 06/27/24 05:30 MCHC 32.8 g/dL (30-55) 06/27/24 05:30 RDW 14.9 % (12.1-15.1) 06/27/24 05:30 Plt Count 173 10^3/cmm (157-399) 06/27/24 05:30 MPV 11.3 fL (7.4-10.4) H 06/27/24 05:30 Neut % (Auto) 75.1 % 06/27/24 05:30 Lymph % (Auto) 14.4 % 06/27/24 05:30 [place] % (Auto) 9.5 % 06/27/24 05:30 Eos % (Auto) 0.7 % 06/27/24 05:30 Baso % (Auto) 0.1 % 06/27/24 05:30 Neut # (Auto) 6.78 10^3/uL (1.8-7.7) 06/27/24 05:30 Lymph # (Auto) 1.3 10^3/uL (0.8-4.8) 06/27/24 05:30 [place] # (Auto) 0.9 10^3/uL (0.2-0.9) 06/27/24 05:30 Eos # (Auto) 0.1 10^3/uL (0.0-0.8) 06/27/24 05:30 Baso # (Auto) 0.0 10^3/uL (0.0-0.1) 06/27/24 05:30 Nucleated RBC % (auto) 0 % 06/27/24 05:30 Nucleated RBCs # 0.0 /100WBC 06/27/24 05:30 Specimen Type Arterial 06/27/24 05:40 Sample Site Radial, right 06/27/24 05:40 ABG pH 7.43 (7.35-7.45) 06/27/24 05:40 ABG pCO2 41.9 mmHg (35-45) 06/27/24 05:40 ABG pO2 76.7 mmHg (80.0-100.0) L 06/27/24 05:40 ABG HCO3 27.6 mmol/L (22-26) H 06/27/24 05:40 ABG O2 Saturation 96.6 06/27/24 05:40 ABG Base Excess 2.9 mmol/L (-2.0-2.0) H 06/27/24 05:40 Raimundo Test Pos 06/27/24 05:40 A-a O2 Gradient 2.8 mmHg (5-10) L 06/27/24 05:40 Hematocrit 38.6 % (42-52) L 06/27/24 05:40 Hgb O2 Saturation 94.7 % (95-100) L 06/27/24 05:40 Carboxyhemoglobin 0.9 %THgb (0.4-20.1) 06/27/24 05:40 Methemoglobin 1.0 % (0.4-1.5) 06/27/24 05:40 Total Hemoglobin 12.6 g/dL (14-18) L 06/27/24 05:40 Sodium 134.0 mmol/L (131-143) 06/27/24 05:40 Potassium 4.1 mmol/L (3.5-5.0) 06/27/24 05:40 Glucose 147.0 mg/dL (70-115) H 06/27/24 05:40 Ionized Calcium 1.2 mmol/L (1.1-1.4) 06/27/24 05:40 O2 Delivery Device Nc 06/27/24 05:40 O2 Liters/Min 3.0 % 06/27/24 05:40 Air Pollution Analyst ID [email or web address] 06/27/24 05:40 Sodium 134 mmol/L (136-145) L 06/27/24 05:30 Potassium 5.1 mmol/L (3.5-5.1) 06/27/24 05:30 Chloride 98 mmol/L (98-107) 06/27/24 05:30 Carbon Dioxide 27 mmol/L (22-29) 06/27/24 05:30 Anion Gap 14.1 (5-19) 06/27/24 05:30 BUN 11 mg/dL (8-23) 06/27/24 05:30 Creatinine 0.7 mg/dL (0.7-1.2) 06/27/24 05:30 GFR Calculation 113.5 mL/min (90-130) 06/27/24 05:30 Glucose 152 mg/dL (65-115) H 06/27/24 05:30 Calculated Osmolality 280 mOsm/kg (285-295) L 06/27/24 05:30 Lactic Acid 1.9 mmol/L (0.5-2.2) 06/27/24 05:30 Calcium 8.2 mg/dL (8.5-10.5) L 06/27/24 05:30 Total Bilirubin 0.7 mg/dL (0.15-1.2) 06/27/24 05:30 AST 55 U/L (0-40) H 06/27/24 05:30 ALT 48 U/L (0-41) H 06/27/24 05:30 Alkaline Phosphatase 309 U/L (40-130) H 06/27/24 05:30 Troponin T Baseline 8 ng/L (0-15) 06/27/24 05:30 Troponin T 120 Minute 6.40 ng/L (0-15) 06/27/24 08:20 Delta Troponin T -1.60 ABS# (0-10) L 06/27/24 08:20 Troponin T Hi Sens 6Hr 6.06 ng/L (0-15) 06/27/24 11:38 Troponin T Hi Sens 6Hr Delta -1.94 ng/L (0-12) L 06/27/24 11:38 NT-Pro-B Natriuret Pep 1362 pg/mL (0-125) H 06/27/24 05:30 Total Protein 6.1 g/dL (6.6-8.7) L 06/27/24 05:30 Albumin 3.4 g/dL (3.5-5.2) L 06/27/24 05:30 Globulin 2.7 g/dL (1.3-4.6) 06/27/24 05:30 Lipase 8 U/L (13-60) L 06/27/24 08:20 Urine Color Yellow (Yellow) 06/27/24 10:13 Urine Appearance Clear (CLEAR) 06/27/24 10:13 Urine pH 5.5 (5-7) 06/27/24 10:13 Ur Specific [place] 1.051 (1.005-1.030) H 06/27/24 10:13 Urine Protein Negative (Negative) 06/27/24 10:13 Urine Glucose (UA) Negative (Normal) 06/27/24 10:13 Urine Ketones Negative (Negative) 06/27/24 10:13 Urine Blood Negative (Negative) 06/27/24 10:13 Urine Nitrate Negative (Negative) 06/27/24 10:13 Urine Bilirubin Negative (Negative) 06/27/24 10:13 Urine Urobilinogen 1.0 mg/dL (Negative) 06/27/24 10:13 Ur Leukocyte Esterase Negative (Negative) 06/27/24 10:13 Amorphous Sediment Not Reportable 06/27/24 10:13 Digoxin 0.9 ng/mL (0.6-1.2) 06/27/24 08:20 Coronavirus (PCR) Negative (Negative) 06/27/24 10:55 Influenza A (PCR) Negative (Negative) 06/27/24 10:55 Influenza Type B (PCR) Negative (Negative) 06/27/24 10:55 RSV (PCR) Negative (Negative) 06/27/24 10:55 All radiology interpretation(s) finalized by discharge Discharge Plan Discharge Patient Disposition: Admitted As Inpatient Admit Provider: Gamal Snyder Clinical Impression: Atrial fibrillation, Uncontrolled type 2 diabetes mellitus, Malignant neoplasm of head of pancreas, Transaminitis, Duodenal stenosis Condition: Stable Sign Out Sign Out Data: Patient Sign Out occurred on 06/27/24 at 05:53. Patient's care was discussed, and care was transferred from Ariana Aguila MD to Yuriy Woodson DO. Coding Level of Care Code ED Road Boss for Carlos De Jesus
[2024-06-27 05:51] LABS: ABG PCO2 41.9 mmHg (35-45); ABG PH Result 7.43 (7.35-7.45); Alveolar-Arterial Oxygen Gradi 2.8 mmHg (5-10); Arterial Blood Gas Hematocrit 38.6 % (42-52); Base Excess ABG 2.9 mmol/L (-2.0-2.0); Blood Gas Allen Test Pos; Blood Gas Sample Site Radial, right; Blood Gas Sample Type Arterial; Carboxyhemoglobin 0.9 %THgb (0.4-20.1); HCO3 ABG 27.6 mmol/L (22-26); HGB O2 Sat 94.7 % (95-100); Ionized Calcium Level - ABG 1.2 mmol/L (1.1-1.4); Oxygen Device NC; Oxygen Saturation ABG 96.6; PO2 ABG 76.7 mmHg (80.0-100.0); Potassium Level - ABG 4.1 mmol/L (3.5-5.0); Total Hemoglobin 12.6 g/dL (14-18)
[2024-06-27 05:56] LABS: Basophils % 0.1 %; Eosinophils # 0.1 10^3/uL (0.0-0.8); Eosinophils % 0.7 %; Hematocrit 40.8 % (37-53); Lymphocytes # 1.3 10^3/uL (0.8-4.8); Lymphocytes % 14.4 %; Mean Corpuscular HGB Conc 32.8 g/dL (30-55); Mean Corpuscular Hemoglobin 28.8 pg (27-33); Mean Corpuscular Volume 87.7 fl (82-101); Mean Platelet Volume 11.3 fL (7.4-10.4); Monocytes # 0.9 10^3/uL (0.2-0.9); Monocytes % 9.5 %; Neutrophils # 6.78 10^3/uL (1.8-7.7); Neutrophils % 75.1 %; Nucleated Red Blood Cells % 0 %; Platelet Count 173 10^3/cmm (157-399); Red Blood Count 4.65 10^6/uL (3.85-5.65); Red Cell Distribution Width 14.9 % (12.1-15.1); White Blood Count 9.03 10^3/uL (3.29-11.43)
[2024-06-27 06:16] LABS: Troponin(5th) Baseline 8 ng/L (0-15)
[2024-06-27 06:17] LABS: Lactic Sepsis W/Reflex 1.9 mmol/L (0.5-2.2)
[2024-06-27 06:31] LABS: Alanine Aminotransferase 48 U/L (0-41); Albumin Level 3.4 g/dL (3.5-5.2); Alkaline Phosphatase 309 U/L (40-130); Blood Urea Nitrogen 11 mg/dL (8-23); Calcium 8.2 mg/dL (8.5-10.5); Carbon Dioxide 27 mmol/L (22-29); Chloride 98 mmol/L (98-107); Creatinine Clr Calc Pharmacy 91.6539; Globulin 2.7 g/dL (1.3-4.6); Glomerular Filtration Rate 113.5 mL/min (90-130); Glucose 152 mg/dL (65-115); NT Pro B Type Natriuretic Pept 1362 pg/mL (0-125); Osmolality Calculated 280 mOsm/kg (285-295); Sodium 134 mmol/L (136-145); Total Bilirubin 0.7 mg/dL (0.15-1.2); Total Protein 6.1 g/dL (6.6-8.7)
[2024-06-27 06:55] LABS: Anion Gap 14.1 (5-19); Aspartate Amino Transferase 55 U/L (0-40); Potassium 5.1 mmol/L (3.5-5.1)
--- NOTE | 2024-06-27 07:11 | ECG_ITS ---
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 Measurements Intervals [place] Rate: 93 P: 0 HI: 0 QRS: -60 QRSD: 108 T: 89 QT: 342 QTc: 425 Interpretive Statements ATRIAL FIBRILLATION LEFT AXIS DEVIATION [QRS AXIS < -30] INCOMPLETE RIGHT BUNDLE BRANCH BLOCK NONSPECIFIC T-WAVE ABNORMALITY Compared to ECG 06/27/2024 05:11:55 Left-axis deviation now present Left anterior fascicular block no longer present T-wave abnormality still present Electronically Signed On 06-27-2024 17:13:49 CDT by Any Polanco M.D. [id number]
--- NOTE | 2024-06-27 08:24 | CT_ITS ---
WS: [id number] CT CHEST ANGIOGRAPHY WITH REFORMATS HISTORY: dyspnea, hx pancreatic CA TECHNIQUE: Contiguous axial images are obtained through the chest during arterial injection of intrav enous contrast. Images are reconstructed to evaluate the pulmonary arteries. MIP imaging also reviewe d. All CT scans at [facility] use at least one of these dose optimization techniques: automat ed exposure control; mA and/or kV adjustment per patient size (includes targeted exams where dose is matched to clinical indication); or iterative reconstruction. CONTRAST: Omnipaque 350; 100 mL IV. DLP: 185.50 mGy.cm COMPARISON: 11/25/2020, PET/CT 03/05/2023 Very good opacification of the pulmonary arteries. No filling defects or pulmonary emboli identified. Normal size main pulmonary artery and no RIGHT heart strain. Mild atherosclerosis aorta. Mild LEFT h eart enlargement. Mild tricuspid regurgitation into the hepatic veins. Small mediastinal and hilar lymph nodes. The largest lymph node precarinal is 1.5 cm. No enlarged lym ph nodes. RIGHT subclavian Mediport. Platelike area of consolidation in the LEFT upper lobe with volu me loss. Additional dependent changes in the LEFT lower lobe. Secretions in the esophagus. 1.1 cm nodule medial RIGHT lung base was not definitely present on 06/02/2024. There are a few additio nal very small scattered nodules which could potentially represent very early metastatic disease. The se nodules are less than 4 mm. New ascites is noted in the upper abdomen surrounding the liver and spleen which was not present on t he CT from 06/02/2024. There is pneumobilia. Low-attenuation mass in the RIGHT lobe of the liver measu res 1.2 cm and is unchanged since 06/02/2024. CT/CT angio chest PE protcl [id number] IMPRESSION: 1. No pulmonary embolism. 2. Patchy area of consolidation in the LEFT upper lobe was also present on the PET/CT of 03/05/2023 and FDG negative. 3. There are a few additional very small pulmonary nodules which are too small to characterize but could represent early metastatic disease. 4. New ascites noted in the upper abdomen that was not present on 06/02/2024. 5. Hepatic lesion 1.2 cm, noted to be a cyst on a prior CT from 06/02/2024.
[2024-06-27] MEDS: iohexol 350 mg/mL 500 mL Btl (per mL) IV (08:45)
[2024-06-27 09:23] LABS: Lipase 8 U/L (13-60)
[2024-06-27 09:31] LABS: Digoxin 0.9 ng/mL (0.6-1.2)
--- NOTE | 2024-06-27 10:54 | ECG_ITS ---
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 Measurements Intervals [place] Rate: 89 P: 0 [place]: 0 QRS: -62 QRSD: 114 T: 82 QT: 351 QTc: 427 Interpretive Statements ATRIAL FIBRILLATION INCOMPLETE RIGHT BUNDLE BRANCH BLOCK NONSPECIFIC T-WAVE ABNORMALITY Compared to ECG 06/27/2024 07:36:37 Left anterior fascicular block now present T-wave abnormality still present Electronically Signed On 06-27-2024 17:04:19 CDT by Any Polanco M.D. [id number]
[2024-06-27 10:55] LABS: Add Urine Microscopic? NO
[2024-06-27] MEDS: sodium chloride 0.9% 1,000 ML 999 ML IV (10:57)
[2024-06-27] MEDS: piperacillin-tazobactam 3.375 GM in sodium chloride 0.9% (plus) 50 ML IV ×2 (10:58→18:10)
[2024-06-27 11:00] LABS: Bilirubin Urine Negative (Negative); Blood Urine Negative (Negative); Glucose Urine UA Negative (Normal); Ketones Urine Negative (Negative); Leukocyte Esterase Urine Negative (Negative); Nitrate Urine Negative (Negative); Protein Urine Negative (Negative); Urine Appearance Clear (CLEAR); Urine Color Yellow (Yellow); pH Urine 5.5 (5-7)
[2024-06-27 11:13] LABS: Add Urine Culture? No; Charge for UA Resulting for Rev; Specific Gravity, Urine 1.051 (1.005-1.030)
[2024-06-27 12:01] LABS: Troponin 5 6HR 6.06 ng/L (0-15)
[2024-06-27 12:06] LABS: Troponin 5 6HR Delta -1.94 ng/L (0-12)
[2024-06-27 12:23] LABS: Covid PCR NEGATIVE (Negative); Influenza A NEGATIVE (Negative); Influenza B NEGATIVE (Negative); Respiratory Syncytial Virus Ce NEGATIVE (Negative)
--- NOTE | 2024-06-27 12:45 | P.HP_ITS ---
Providers/Chief Complaint 2 Admitting Physician: Gamal Snyder MD Primary Care Provider: Layla Ryan NP Chief Complaint: SOB History of Present Illness Mu Willis is a 64 year old male presenting to the emergency department early this morning with shortness of breath, and cough.He has history of recently being at [facility] for pancreatic cancer, which caused duodenal obstruction. He recently had an endoscopically placed gastrojejunal stent secondary to stenosis in the second portion of his duodenum. His biliary stent was intact. He reports no nausea or vomiting. He is having bowel movements. He reports prior history of significant pneumonia. Sputum occasionally productive. No chest pain. Does not feel bloated. Is having bowel movements. Denies any leg pain. Reports he may have some lung disease but is not on any inhalers and never smoked. No fever. Review of Systems 2 Const: Denies: fever(s) Card: Denies: chest pain Resp: Reports: dyspnea and productive cough GI: Denies: abdominal pain, nausea, vomiting, constipation, hematochezia or melena Medications/Allergies Home Medications Medication Instructions Recorded Confirmed Last Taken Type apixaban 5 mg tablet (Eliquis) 5 mg PO BID 02/21/20 06/27/24 06/26/24 History ondansetron HCl 4 mg tablet 4 - 8 mg (1 - 2 x 4 mg) PO TID #30 06/09/23 06/27/24 06/10/23 Rx tabs prochlorperazine 25 mg rectal 25 mg AL Q12H PRN nausea and 06/02/24 06/27/24 06/26/24 Rx suppository (Compazine) vomiting #9 ea digoxin 125 mcg (0.125 mg) tablet 0.125 mcg PO DAILY 06/27/24 06/27/24 06/26/24 History metoprolol tartrate 25 mg tablet 25 mg PO BID 06/27/24 06/27/24 06/26/24 History pantoprazole 40 mg tablet,delayed 40 mg PO DAILY 06/27/24 06/27/24 06/26/24 History release Allergies Allergy/AdvReac Type Severity Reaction Status Date / Time verapamil Allergy ALGY-Rash Verified 11/16/23 09:19 PFSH Acute 2 PFSH: Medical History Pancreatic cancer Arthralgia of hip Chronic anticoagulation Atrial fibrillation Chronic lung disease Patient reports failed pulmonary function testing in the past for occupational reasons, no formal PFTs documented BPH (benign prostatic hyperplasia) Hypertension Surgical History History of ERCP (02/11/23) ERCP with placement of common bile duct stent and FNA biopsy of pancreatic head mass Port-A-Cath in place History of tonsillectomy and adenoidectomy History of cholecystectomy Family History Father Congestive heart failure (CHF) Mother Cancer Social History Smoking and tobacco/nicotine status: never used tobacco/nicotine Second hand smoke exposure: Yes Alcohol intake: never Substance/Drug Use: never Lives independently: Yes Household members: spouse Housing: House Marital status: service: No Current occupational status: employed Current occupation: works at [employer] currently Previous occupational history: 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 HEENT: Atraumatic and normocephalic. Oropharynx clear. Neck is supple no lymphadenopathy thyromegaly Cardiovascular irregular, irregular with controlled rate. No murmur Lungs coarse bilaterally. No wheezing Abdomen is soft nontender positive bowel sounds. exam is deferred Extremities no cyanosis clubbing or edema, cap refill brisk Skin no rash Neuro no obvious focal deficits Data 10/30/24 05:30 06/27/24 05:30 Other Labs: ABG demonstrated pH 7.43, pCO2 42, pO2 77 on 3 L LFTs, demonstrating AST of 55, ALT 48, alk phos 309. Bilirubin is normal. Lactic acid is normal. Calcium 8.2, albumin 3.4 BNP 1362 Troponin 6 with repeat of 6 Urinalysis negative Digoxin level 0.9 COVID RSV and influenza negative CTA of chest which I reviewed demonstrates no PE, some consolidation left upper lobe which has been there in the past, some pulmonary nodules, some ascites in the abdomen, and an hepatic lesion. Some fluid is noted in the esophagus. Chest x-ray which I reviewed demonstrates port and a left upper lobe infiltrate EKG which I reviewed demonstrates A-fib, left axis deviation, nonspecific ST-T wave changes. Incomplete right bundle. Micro: Microbiology 06/27/24 05:49 Blood Culture - Preliminary Blood SPECIMEN COLLECTED 06/27/24 05:43 Blood Culture - Preliminary Blood SPECIMEN COLLECTED A&P Assessment and plan (1) Pneumonia: Patient presents with pneumonia, requiring oxygen. He has symptoms of cough. There is a possibility of aspiration as he has slow gastric emptying, recent gastrojejunal stenting at [place] secondary to pancreatic cancer. Continue Zosyn Check MRSA PCR COVID, influenza and RSV are negative Wean oxygen as tolerated Clear liquid diet for now Breathing treatments as needed Sputum culture Blood cultures have been done Overall appropriate for observation at this time. (2) Atrial fibrillation: Patient has history of atrial fibrillation, currently rate controlled Continue digoxin and metoprolol, as well as Eliquis Telemetry Qualifiers: Atrial fibrillation type: unspecified Qualified Code(s): I48.91 - Unspecified atrial fibrillation (3) Hypoxia: Patient with hypoxia CTA has been done demonstrating no pulmonary embolism Wean oxygen as tolerated (4) Pancreatic cancer: History of pancreatic cancer, with most recent intervention being a gastric jejunal stent for second portion of the duodenum stenosis. Continue to follow-up at [place] Plan Multiple other medical problems as outlined in past medical history Full code currently Eliquis will suffice for DVT prophylaxis Attestations 2 Medical Necessity Statement*: Will require less than 2 midnight stay for evaluation and treatment of pneumonia with hypoxia Diagnoses Pneumonia J18.9 Atrial fibrillation I48.91 Atrial fibrillation type: unspecified Hypoxia R09.02 Pancreatic cancer C25.9 Time Spent (min) 43
[2024-06-27 16:41] LABS: MRSA PCR OZH (swab) NOT DETECTED (Negative)
[2024-06-27 16:41] LABS: Glucose Point of Care 81 mg/dL (70-110)
[2024-06-27] MEDS: metoprolol tartrate 25 mg Tablet PO (18:05)
[2024-06-27] MEDS: apixaban 5 mg Tablet PO (18:06)
[2024-06-28] VITALS: BP 109/75; PULSE 72; RESP 16; TEMP 36.4; O2SAT 96
[2024-06-28] MEDS: piperacillin-tazobactam 3.375 GM in sodium chloride 0.9% (plus) 50 ML IV (02:31)
[2024-06-28 04:00] VITALS: BP 112/71; PULSE 75; RESP 17; TEMP 36.7; O2SAT 97
[2024-06-28 05:59] LABS: Basophils % 0.5 %; Eosinophils # 0.1 10^3/uL (0.0-0.8); Eosinophils % 1.8 %; Hematocrit 34.3 % (37-53); Lymphocytes # 1.1 10^3/uL (0.8-4.8); Lymphocytes % 18.2 %; Mean Corpuscular HGB Conc 32.9 g/dL (30-55); Mean Corpuscular Hemoglobin 28.6 pg (27-33); Mean Corpuscular Volume 86.8 fl (82-101); Mean Platelet Volume 10.1 fL (7.4-10.4); Monocytes # 0.6 10^3/uL (0.2-0.9); Monocytes % 10.2 %; Neutrophils # 4.34 10^3/uL (1.8-7.7); Nucleated Red Blood Cells % 0 %; Platelet Count 183 10^3/cmm (157-399); Red Blood Count 3.95 10^6/uL (3.85-5.65); White Blood Count 6.28 10^3/uL (3.29-11.43)
[2024-06-28 06:20] LABS: Alanine Aminotransferase 34 U/L (0-41); Albumin Level 2.6 g/dL (3.5-5.2); Alkaline Phosphatase 242 U/L (40-130); Aspartate Amino Transferase 34 U/L (0-40); Blood Urea Nitrogen 9 mg/dL (8-23); Calcium 7.8 mg/dL (8.5-10.5); Carbon Dioxide 27 mmol/L (22-29); Chloride 101 mmol/L (98-107); Creatinine Clr Calc Pharmacy 92.4244; Globulin 2.5 g/dL (1.3-4.6); Glomerular Filtration Rate 113.5 mL/min (90-130); Glucose 97 mg/dL (65-115); Magnesium 1.7 mg/dL (1.7-2.3); Osmolality Calculated 279 mOsm/kg (285-295); Sodium 135 mmol/L (136-145); Total Bilirubin 0.8 mg/dL (0.15-1.2); Total Protein 5.1 g/dL (6.6-8.7)
[2024-06-28 07:35] VITALS: BP 107/70; PULSE 78; RESP 16; TEMP 36.6; O2SAT 96
--- NOTE | 2024-06-28 07:58 | P.DS_ITS ---
Discharge Providers Date of Admission: 06/27/24 13:29 Date of Discharge: June 28, 2024 Attending Provider at Admission: Gamal Snyder MD Attending Provider at Discharge: Gamal Snyder MD Primary Care Provider: Layla Ryan NP Diagnoses at Discharge Discharge Diagnosis (1) Pneumonia: Status: Acute (2) Atrial fibrillation: Status: Acute Qualifiers: Atrial fibrillation type: unspecified Qualified Code(s): I48.91 - Unspecified atrial fibrillation (3) Hypoxia: Status: Acute (4) Pancreatic cancer: Status: Acute Reason for Visit Reason for Visit: SOB Hospital Course Hospital Course Mu is a 64-year-old white male who presented to the emergency department short of breath, and coughing. He has history of pancreatic cancer, recently got a gastro jejunal stent at [place]. CTA was performed demonstrating no pulmonary embolism. There was concern for a left upper lobe pneumonia. Patient reports he had quite a bit of vomiting around 1 week ago. He was placed on Zosyn, and followed closely. With this treatment his hypoxia went away. He had no significant chest pain. He had no fevers overnight. We discussed the possibility of delayed gastric emptying with his recent procedure, and he was placed on clear liquids initially, and then a pur?ed diet. He had no abdominal bloating, continued to have bowel movements. We discussed significant reflux precautions, continuing. Diet with thin liquids, and close follow-up with his primary care provider in 3 to 5 days. He will discharge on Augmentin 875 mg 1 twice daily for 7 days. He was able to ask questions and agreed with the plan. Physical Exam Narrative: General Exam no distress Neck is supple Cardiovascular regular rate rhythm Lungs clear Abdomen soft Extremities no cyanosis clubbing or edema Discharge Data Studies Completed and Pending Completed Studies During Hospitalization Category Date Time Status CT angio chest PE protcl [id number] Stat Cat Scan 06/27/24 08:24 Completed XR chest 1V portable [id number] Stat Exams 06/27/24 05:11 Completed Pending at discharge Category Date Time Status Blood Culture Stat Lab 06/27/24 05:49 Results Sputum Culture and Gram Stain Routine Lab 06/27/24 13:21 Uncollected Radiology Impressions Chest X-Ray 06/27/24 05:11 PROCEDURE INFORMATION: Exam: XR Chest Exam date and time: 06/27/2024 5:34 AM Age: 64 years old Clinical indication: Shortness of breath; Prior surgery; Surgery date: 6+ months; Surgery type: Port a cath; Patient HX: Pancreatic CA TECHNIQUE: Imaging protocol: Radiologic exam of the chest. Views: 1 view. COMPARISON: CT chest con [id number] 11/25/2020 2:32 PM FINDINGS: Lungs: Unremarkable. No consolidation. Pleural spaces: Unremarkable. No pleural effusion. No pneumothorax. Heart/Mediastinum: Unremarkable. No cardiomegaly. Bones/joints: Unremarkable. Right infusion port terminates in the SVC. Pleural is thickening, volume loss, an infiltrate or fibrosis in the left lung. IMPRESSION: Infusion port terminates near the atrial caval junction. Chest CTA 06/27/24 08:24 IMPRESSION: 1. No pulmonary embolism. 2. Patchy area of consolidation in the LEFT upper lobe was also present on the PET/CT of 03/05/2023 and FDG negative. 3. There are a few additional very small pulmonary nodules which are too small to characterize but could represent early metastatic disease. 4. New ascites noted in the upper abdomen that was not present on 06/02/2024. 5. Hepatic lesion 1.2 cm, noted to be a cyst on a prior CT from 06/02/2024. Laboratory Results WBC 6.28 10^3/uL (3.29-11.43) 06/28/24 05:17 RBC 3.95 10^6/uL (3.85-5.65) 06/28/24 05:17 Hgb 11.30 g/dL (11.27-16.99) 06/28/24 05:17 Hct 34.3 % (37-53) L 06/28/24 05:17 MCV 86.8 fl (82-101) 06/28/24 05:17 MCH 28.6 pg (27-33) 06/28/24 05:17 MCHC 32.9 g/dL (30-55) 06/28/24 05:17 RDW 15.0 % (12.1-15.1) 06/28/24 05:17 Plt Count 183 10^3/cmm (157-399) 06/28/24 05:17 MPV 10.1 fL (7.4-10.4) 06/28/24 05:17 Neut % (Auto) 69.0 % 06/28/24 05:17 Lymph % (Auto) 18.2 % 06/28/24 05:17 [place] % (Auto) 10.2 % 06/28/24 05:17 Eos % (Auto) 1.8 % 06/28/24 05:17 Baso % (Auto) 0.5 % 06/28/24 05:17 Neut # (Auto) 4.34 10^3/uL (1.8-7.7) 06/28/24 05:17 Lymph # (Auto) 1.1 10^3/uL (0.8-4.8) 06/28/24 05:17 [place] # (Auto) 0.6 10^3/uL (0.2-0.9) 06/28/24 05:17 Eos # (Auto) 0.1 10^3/uL (0.0-0.8) 06/28/24 05:17 Baso # (Auto) 0.0 10^3/uL (0.0-0.1) 06/28/24 05:17 Nucleated RBC % (auto) 0 % 06/28/24 05:17 Nucleated RBCs # 0.0 /100WBC 06/28/24 05:17 Specimen Type Arterial 06/27/24 05:40 Sample Site Radial, right 06/27/24 05:40 ABG pH 7.43 (7.35-7.45) 06/27/24 05:40 ABG pCO2 41.9 mmHg (35-45) 06/27/24 05:40 ABG pO2 76.7 mmHg (80.0-100.0) L 06/27/24 05:40 ABG HCO3 27.6 mmol/L (22-26) H 06/27/24 05:40 ABG O2 Saturation 96.6 06/27/24 05:40 ABG Base Excess 2.9 mmol/L (-2.0-2.0) H 06/27/24 05:40 Raimundo Test Pos 06/27/24 05:40 A-a O2 Gradient 2.8 mmHg (5-10) L 06/27/24 05:40 Hematocrit 38.6 % (42-52) L 06/27/24 05:40 Hgb O2 Saturation 94.7 % (95-100) L 06/27/24 05:40 Carboxyhemoglobin 0.9 %THgb (0.4-20.1) 06/27/24 05:40 Methemoglobin 1.0 % (0.4-1.5) 06/27/24 05:40 Total Hemoglobin 12.6 g/dL (14-18) L 06/27/24 05:40 Sodium 134.0 mmol/L (131-143) 06/27/24 05:40 Potassium 4.1 mmol/L (3.5-5.0) 06/27/24 05:40 Glucose 147.0 mg/dL (70-115) H 06/27/24 05:40 Ionized Calcium 1.2 mmol/L (1.1-1.4) 06/27/24 05:40 O2 Delivery Device Nc 06/27/24 05:40 O2 Liters/Min 3.0 % 06/27/24 05:40 Washing Machine Loader And Puller ID [email or web address] 06/27/24 05:40 Sodium 135 mmol/L (136-145) L 06/28/24 05:17 Potassium 4.0 mmol/L (3.5-5.1) 06/28/24 05:17 Chloride 101 mmol/L (98-107) 06/28/24 05:17 Carbon Dioxide 27 mmol/L (22-29) 06/28/24 05:17 Anion Gap 11.0 (5-19) 06/28/24 05:17 BUN 9 mg/dL (8-23) 06/28/24 05:17 Creatinine 0.7 mg/dL (0.7-1.2) 06/28/24 05:17 GFR Calculation 113.5 mL/min (90-130) 06/28/24 05:17 Glucose 97 mg/dL (65-115) 06/28/24 05:17 POC Glucose 81 mg/dL (70-110) 06/27/24 16:19 Calculated Osmolality 279 mOsm/kg (285-295) L 06/28/24 05:17 Lactic Acid 1.9 mmol/L (0.5-2.2) 06/27/24 05:30 Calcium 7.8 mg/dL (8.5-10.5) L 06/28/24 05:17 Magnesium 1.7 mg/dL (1.7-2.3) 06/28/24 05:17 Total Bilirubin 0.8 mg/dL (0.15-1.2) 06/28/24 05:17 AST 34 U/L (0-40) 06/28/24 05:17 ALT 34 U/L (0-41) 06/28/24 05:17 Alkaline Phosphatase 242 U/L (40-130) H 06/28/24 05:17 Troponin T Baseline 8 ng/L (0-15) 06/27/24 05:30 Troponin T 120 Minute 6.40 ng/L (0-15) 06/27/24 08:20 Delta Troponin T -1.60 ABS# (0-10) L 06/27/24 08:20 Troponin T Hi Sens 6Hr 6.06 ng/L (0-15) 06/27/24 11:38 Troponin T Hi Sens 6Hr Delta -1.94 ng/L (0-12) L 06/27/24 11:38 NT-Pro-B Natriuret Pep 1362 pg/mL (0-125) H 06/27/24 05:30 Total Protein 5.1 g/dL (6.6-8.7) L 06/28/24 05:17 Albumin 2.6 g/dL (3.5-5.2) L 06/28/24 05:17 Globulin 2.5 g/dL (1.3-4.6) 06/28/24 05:17 Lipase 8 U/L (13-60) L 06/27/24 08:20 Urine Color Yellow (Yellow) 06/27/24 10:13 Urine Appearance Clear (CLEAR) 06/27/24 10:13 Urine pH 5.5 (5-7) 06/27/24 10:13 Ur Specific [place] 1.051 (1.005-1.030) H 06/27/24 10:13 Urine Protein Negative (Negative) 06/27/24 10:13 Urine Glucose (UA) Negative (Normal) 06/27/24 10:13 Urine Ketones Negative (Negative) 06/27/24 10:13 Urine Blood Negative (Negative) 06/27/24 10:13 Urine Nitrate Negative (Negative) 06/27/24 10:13 Urine Bilirubin Negative (Negative) 06/27/24 10:13 Urine Urobilinogen 1.0 mg/dL (Negative) 06/27/24 10:13 Ur Leukocyte Esterase Negative (Negative) 06/27/24 10:13 Amorphous Sediment Not Reportable 06/27/24 10:13 Nasal MRSA (PCR) Not detected (Negative) 06/27/24 15:05 Digoxin 0.9 ng/mL (0.6-1.2) 06/27/24 08:20 Coronavirus (PCR) Negative (Negative) 06/27/24 10:55 Influenza A (PCR) Negative (Negative) 06/27/24 10:55 Influenza Type B (PCR) Negative (Negative) 06/27/24 10:55 RSV (PCR) Negative (Negative) 06/27/24 10:55 Vitals Last Vital Signs Temp 97.9 F 06/28/24 07:35 Pulse 78 06/28/24 07:35 Resp 16 06/28/24 07:35 BP 107/70 06/28/24 07:35 Pulse Ox 96 06/28/24 07:35 O2 Del Method Room Air 06/28/24 07:35 O2 Flow Rate 4 06/27/24 05:07 Discharge Plan Discharge Patient Disposition: Home Condition: Stable Prescriptions: New amoxicillin-pot clavulanate 875-125 mg tablet 1 tab PO BID Qty: 14 0RF Continued ondansetron HCl 4 mg tablet 4 - 8 mg PO TID Qty: 30 2RF Eliquis 5 mg Tablet 5 mg PO BID prochlorperazine [Compazine] 25 mg suppository 25 mg IA Q12H PRN (Reason: nausea and vomiting) Qty: 9 0RF digoxin 125 mcg (0.125 mg) tablet 0.125 mcg PO DAILY pantoprazole 40 mg tablet,delayed release (DR/EC) 40 mg PO DAILY metoprolol tartrate 25 mg tablet 25 mg PO BID Discharge Orders: Discharge Order (Routine); Ordered 06/28/24 Ordered By: Gamal Snyder Referrals: Layla Ryan NP [Primary Care Provider] - 4-7 days Discharge Diet: As Directed Discharge Activity: Increase activity as tolerated Patient Instructions: Opioid Safety Activity Restrictions/Additional Instructions: Pur?ed diet. Stay upright at least 3 hours after eating. Take Augmentin as prescribed for 7 days Return for any concerns See your primary care provider 3 to 5 days Discharge Attestations Time Spent in Discharge Care*: greater than 30 min Quality Metrics Clinical Quality Measures [ No reported AMI, CVA or VTE this stay] Coding Level of Care Code 29349 Total time (in minutes) for Discharge: 31 Diagnoses Pneumonia J18.9 Atrial fibrillation I48.91 Atrial fibrillation type: unspecified Hypoxia R09.02 Pancreatic cancer C25.9 Time Spent (min) 31
[2024-06-28] MEDS: pantoprazole DR 40 mg Tablet PO (08:32)
[2024-06-28 08:33] VITALS: PULSE 78
[2024-06-28] MEDS: metoprolol tartrate 25 mg Tablet PO (08:33)
[2024-06-28] MEDS: digoxin 125 mcg Tablet PO (08:33)
[2024-06-28] MEDS: apixaban 5 mg Tablet PO (08:33)
[2024-06-28 11:47] VITALS: BP 105/64; PULSE 67; RESP 16; TEMP 36.6; O2SAT 95
--- NOTE | 2024-06-28 11:50 | PC.NURSE ---
Discharge Note Patient discharged to home via private vehicle accompanied by family. Discharge instructions reviewed with patient and/or career representative. Mobile pharmacy medications and/or prescriptions provided. Belongings/home medications returned.
[2024-06-28 13:01] VITALS: BP 105/64; PULSE 67; RESP 16; TEMP 36.6; O2SAT 95
== END 2024-06-28 13:04 | disposition home or self-care (01) ==
LOC: ER 05:53 → MEDSURG 13:30
PROVIDERS: Emergency Medicine; Admitting Provider Internal Medicine; Emergency Provider Family Medicine; PCP Nurse Practitioner Family; Visit Provider Internal Medicine
DX: J18.9 Pneumonia, unspecified organism (principal); I48.91 Unspecified atrial fibrillation; R09.02 Hypoxemia; C25.9 Malignant neoplasm of pancreas, unspecified; N40.0 Benign prostatic hyperplasia without lower urinary tract symptoms; I10 Essential (primary) hypertension; E11.9 Type 2 diabetes mellitus without complications; Z79.01 Long term (current) use of anticoagulants
CPT/HCPCS: 0241U; 36415; 36416; 36600; 71045; 71275; 80051; 80053; 80162; 81003; 82330; 82805; 82962; 83605; 83690; 83735; 83880; 84484; 85025; 87040; 93005; 96365; 96366; 99285; G0378; J2543; J7030